=== PATIENT | male | born 1960 | race Caucasian/White ===

== ENCOUNTER 2017-10-27 03:14 | Inpatient (IN) | payer OTHER ==
[~2017-10-27] VITALS: Ht 180.3 cm; Wt 81.0 kg
[2017-10-27] VITALS (16 sets, daily range): BP systolic 113–214; BP diastolic 64–112; PULSE 63–140; RESP 18–48; TEMP 97.8–98.5; O2SAT 64–99
[~2017-10-27 03:14] MED LIST: LORTA5 PO
[2017-10-27] MEDS ORDERED: NITROGLYCERIN-D5W 50 MG/250 ML 250 ML ONE (03:19)
[2017-10-27] MEDS ORDERED: LABETALOL HCL 100 MG/20 ML VIAL IV PUSH ONE (03:30)
[2017-10-27] MEDS ORDERED: SODIUM CHLORIDE 0.9% FLUSH 10 ML FLUSH IVF PRN (03:30)
[2017-10-27] MEDS ORDERED: NITROGLYCERIN 0.4 MG SL 25 TABS/BTL SL ONE ×3 (03:30)
[2017-10-27] MEDS ORDERED: methylPREDNISolone SOD SUCC 125 MG/2 ML VIAL IV PUSH ONE (03:30)
[2017-10-27] MEDS ORDERED: MORPHINE SULFATE 2 MG/ML INJ IV PUSH ONE ×2 (03:30)
[2017-10-27] MEDS ORDERED: diphenhydrAMINE HCL 50 MG/ML VIAL IV PUSH ONE (03:30)
[2017-10-27] MEDS ORDERED: NITROGLYCERIN-D5W 50 MG/250 ML 250 ML IV ONE (03:30)
[2017-10-27] MEDS ORDERED: FUROSEMIDE 100 MG/10 ML VIAL IV PUSH ONE (03:30)
[2017-10-27 03:49] LABS: AUTOMATED NEUTROPHIL # 10.9 TH/MM3 (1.8-7.7); BASOPHIL # 0.1 TH/MM3 (0-0.2); BASOPHIL % 0.7 % (0.0-2.0); EOSINOPHIL # 0.2 TH/MM3 (0-0.4); EOSINOPHIL % 1.2 % (0.0-4.0); HEMATOCRIT 37.3 % (39.0-51.0); HEMOGLOBIN 12.4 GM/DL (13.0-17.0); LYMPH % 27.1 % (9.0-44.0); LYMPHOCYTE # 4.4 TH/MM3 (1.0-4.8); MEAN CELL VOLUME 85.3 FL (80.0-100.0); MEAN CORPUSCULAR HEMOGLOBIN 28.4 PG (27.0-34.0); MEAN CORPUSCULAR HGB CONC 33.3 % (32.0-36.0); MEAN PLATELET VOLUME 9.4 FL (7.0-11.0); MONO % 3.9 % (0.0-8.0); MONOCYTE # 0.6 TH/MM3 (0-0.9); NEUT % 67.1 % (16.0-70.0); PLATELET COUNT 321 TH/MM3 (150-450); RED BLOOD COUNT 4.38 MIL/MM3 (4.50-5.90); RED CELL DISTRIBUTION WIDTH 15.5 % (11.6-17.2); WHITE BLOOD COUNT 16.2 TH/MM3 (4.0-11.0)
[2017-10-27] MEDS ORDERED: LISI10TA3 PO (03:56)
[2017-10-27] MEDS ORDERED: CORE25TA PO (03:56)
[2017-10-27] MEDS ORDERED: IPRAAER INH (03:56)
[2017-10-27] MEDS ORDERED: ETHA5TAB PO (03:56)
--- NOTE | 2017-10-27 03:56 | RADRPT ---
EXAM DATE/TIME: 10/27/2017 03:30 [place] COMPARISON: No previous studies available for comparison. INDICATIONS : Shortness of breath MEDICAL HISTORY : None. SURGICAL HISTORY : None. ENCOUNTER: Initial ACUITY: 1 day PAIN SCORE: 8/10 LOCATION: Bilateral chest FINDINGS: Single AP view of the chest. Moderate severity bilateral mixed interstitial and hazy pulmonary opacit y. No evidence of pleural effusion or pneumothorax. Cardiomediastinal silhouette within normal limits . CONCLUSION: Moderate severity bilateral pulmonary opacity with perihilar predominance. Pulmonary edema is most li rosario etiology. Paolo Billy MD on October 27, 2017 at 3:54 Board Certified Radiologist. This report was verified electronically.
[2017-10-27 03:57] LABS: ALBUMIN 2.6 GM/DL (3.4-5.0); ALT (GPT) 30 U/L (12-78); AST (GOT) 30 U/L (15-37); BICARBONATE 19.4 MEQ/L (21.0-32.0); BLOOD UREA NITROGEN 37 MG/DL (7-18); CALCIUM 7.9 MG/DL (8.5-10.1); CHLORIDE 107 MEQ/L (98-107); GLOMERULAR FILTRATION RATE 48 ML/MIN (>89); GLUCOSE,RANDOM 209 MG/DL (74-106); SODIUM (NA) 139 MEQ/L (136-145)
[2017-10-27 04:01] LABS: ALKALINE PHOSPHATASE 73 U/L (45-117); TOTAL BILIRUBIN ADULT 0.5 MG/DL (0.2-1.0); TOTAL PROTEIN 6.5 GM/DL (6.4-8.2); TROPONIN I 0.05 NG/ML (0.02-0.05)
[2017-10-27 04:02] LABS: INTERNATIONAL NORMALIZED RATIO 1.1 RATIO; PROTHROMBIN TIME - PATIENT 10.7 SEC (9.8-11.6)
--- NOTE | 2017-10-27 04:46 | PD ---
HPI . Acute respiratory distress Chief Complaint: Respiratory Distress Time Seen by Provider: 03:17 Travel History International Travel<30 days: No Contact w/Intl Traveler<30days: No Traveled to known affect area: No History of Present Illness HPI 57-year-old male complains of having acute shortness of breath at home. administered Lasix with no apparent effect. Patient has a history of acute pulmonary edema/CHF. Patient denies chest pain or fever. Patient is limited historian secondary to acute respiratory extremis. EMS transport with CPAP [facility] Past Medical History Narrative Medical Past medical history reviewed Congestive Heart Failure: Yes Diminished Hearing: No Kidney Stones: Yes Tetanus Vaccination: Unknown Past Surgical History Abdominal Surgery: Yes (ventral hernia repair) Tonsillectomy: Yes Other Surgery: Yes (surgery on penis as a child) Social History Alcohol Use: No Tobacco Use: No (denies) Substance Use: Yes (marijuana.) Allergies-Medications (Allergen,Severity, Reaction): Coded Allergies: No Known Allergies (Verified Adverse Reaction, Unknown, 10/27/17) Reported Meds & Prescriptions Reported Meds & Active Scripts Active Reported Combivent Respimat Inh (Ipratropium-Albuterol Inh) 20-100 Senior Care/Act Aero 1 Puff INH QID Ethacrynic Acid 25 Mg Tab 25 Mg PO DAILY Lisinopril 10 Mg Tab 10 Mg PO DAILY Coreg (Carvedilol) 25 Mg Tab 25 Mg PO BID Narrative Medication Allergies and medications reviewed Review of Systems Except as stated in HPI: all other systems reviewed are Neg General / Constitutional: No: Fever Eyes: No: Visual changes HENT: No: Headaches Cardiovascular: No: Chest Pain or Discomfort Respiratory: Positive: Shortness of Breath Gastrointestinal: No: Abdominal Pain Genitourinary: No: Dysuria Musculoskeletal: No: Pain Skin: No Rash Neurologic: No: Weakness Psychiatric: No: Depression Endocrine: No: Polydipsia Hematologic/Lymphatic: No: Easy Bruising Physical Exam Narrative GENERAL: Awake and alert in severe extremities, acute respiratory distress SKIN: Pale but dry, no cyanosis no diaphoresis HEAD: Atraumatic. Normocephalic. EYES: Pupils equal and round. No scleral icterus. No injection or drainage. ENT: No nasal bleeding or discharge. Mucous membranes pink and moist. NECK: Trachea midline. No stridor CARDIOVASCULAR: Tachycardia regular at 150 bpm RESPIRATORY: Acute respiratory extremis, rales bilateral, JVD positive GASTROINTESTINAL: Abdomen soft, non-tender, nondistended. Hepatic and splenic margins not palpable. MUSCULOSKELETAL: Extremities without clubbing, cyanosis, or edema. No obvious deformities. NEUROLOGICAL: Awake and alert. No obvious cranial nerve deficits. Motor grossly within normal limits. Five out of 5 muscle strength in the arms and legs. Normal speech. PSYCHIATRIC: Appropriate mood and affect; insight and judgment normal. Data Data Last Documented VS Vital Signs Date Time Temp Pulse Resp B/P (MAP) Pulse Ox O2 Delivery O2 Flow Rate FiO2 10/27/17 04:11 116 139/84 10/27/17 03:25 60 96 BiPAP 100 Orders Orders Electrocardiogram (10/27/17 03:17) B-Type Natriuretic Peptide (10/27/17 03:17) Ckmb (Isoenzyme) Profile (10/27/17 03:17) Complete Blood Count With Diff (10/27/17 03:17) Comprehensive Metabolic Panel (10/27/17 03:17) D-Dimer (10/27/17 03:17) Magnesium (Mg) (10/27/17 03:17) Prothrombin Time / Inr (Pt) (10/27/17 03:17) Act Partial Throm Time (Ptt) (10/27/17 03:17) Troponin I (10/27/17 03:17) Chest, Single Ap (10/27/17 03:17) Ecg Monitoring (10/27/17 03:17) Bilateral Bp Monitoring (10/27/17 03:17) Iv Access Insert/Monitor (10/27/17 03:17) Oximetry (10/27/17 03:17) Oxygen Administration (10/27/17 03:17) Sodium Chloride 0.9% Flush (Ns Flush) (10/27/17 03:30) Nitroglycerin-D5w 50 Mg/250 Ml (Nitrogly (10/27/17 03:19) Nitroglycerin Sl (Nitrostat Sl) (10/27/17 03:30) Nitroglycerin Sl (Nitrostat Sl) (10/27/17 03:30) Nitroglycerin Sl (Nitrostat Sl) (10/27/17 03:30) Nitroglycerin-D5w 50 Mg/250 Ml (Nitrogly (10/27/17 03:30) Morphine Inj (Morphine Inj) (10/27/17 03:30) Morphine Inj (Morphine Inj) (10/27/17 03:30) Diphenhydramine Inj (Benadryl Inj) (10/27/17 03:30) Furosemide Inj (Lasix Inj) (10/27/17 03:30) Methylprednisolone So Succ Inj (Solumedr (10/27/17 03:30) Labetalol Inj (Trandate Inj) (10/27/17 03:30) Labs Laboratory Tests Test 10/27/17 03:25 White Blood Count 16.2 TH/MM3 Red Blood Count 4.38 MIL/MM3 Hemoglobin 12.4 GM/DL Hematocrit 37.3 % Mean Corpuscular Volume 85.3 FL Mean Corpuscular Hemoglobin 28.4 PG Mean Corpuscular Hemoglobin Concent 33.3 % Red Cell Distribution Width 15.5 % Platelet Count 321 TH/MM3 Mean Platelet Volume 9.4 FL Neutrophils (%) (Auto) 67.1 % Lymphocytes (%) (Auto) 27.1 % Monocytes (%) (Auto) 3.9 % Eosinophils (%) (Auto) 1.2 % Basophils (%) (Auto) 0.7 % Neutrophils # (Auto) 10.9 TH/MM3 Lymphocytes # (Auto) 4.4 TH/MM3 Monocytes # (Auto) 0.6 TH/MM3 Eosinophils # (Auto) 0.2 TH/MM3 Basophils # (Auto) 0.1 TH/MM3 CBC Comment AUTO DIFF Differential Comment AUTO DIFF CONFIRMED Prothrombin Time 10.7 SEC Prothromb Time International Ratio 1.1 RATIO Activated Partial Thromboplast Time 24.3 SEC Blood Urea Nitrogen 37 MG/DL Creatinine 1.50 MG/DL Random Glucose 209 MG/DL Total Protein 6.5 GM/DL Albumin 2.6 GM/DL Calcium Level 7.9 MG/DL Magnesium Level 2.0 MG/DL Alkaline Phosphatase 73 U/L Aspartate Amino Transf (AST/SGOT) 30 U/L Alanine Aminotransferase (ALT/SGPT) 30 U/L Total Bilirubin 0.5 MG/DL Sodium Level 139 MEQ/L Potassium Level 3.8 MEQ/L Chloride Level 107 MEQ/L Carbon Dioxide Level 19.4 MEQ/L Anion Gap 13 MEQ/L Estimat Glomerular Filtration Rate 48 ML/MIN Total Creatine Kinase 56 U/L Troponin I 0.05 NG/ML MDM Medical Decision Making Medical Screen Exam Complete: Yes Emergency Medical Condition: Yes Medical Record Reviewed: Yes Differential Diagnosis Acute pulmonary edema/CHF Narrative Course Chest x-ray acute pulmonary edema EKG sinus tachycardia 151 bpm with slightly peaked T waves in V3 V4 Patient had CPAP administered, as well as sublingual 3 followed by IV nitroglycerin, pretreatment with Benadryl and cimetidine followed by Lasix 80 mg IV push secondary to history of diffuse severe urticaria after Lasix IV Labetalol 10 mg IV push, morphine total 4 mg IV push with significant improvement in patient's symptoms. 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 Brooks maintenance shop technician, accepted for ICU admission Diagnosis Primary Impression: Acute pulmonary edema Admitting Information Admitting Physician Requests: Admit Lars Alexander MD Oct 27, 2017 04:46
[2017-10-27 05:05] LABS: D-DIMER 4.89 MG/L FEU (0.00-0.50)
[2017-10-27] MEDS ORDERED: LACTULOSE SYRUP 20 GM/30 ML CUP PO PRN (05:15)
[2017-10-27] MEDS ORDERED: ZOLPIDEM TARTRATE 5 MG TAB PO PRN (05:15)
[2017-10-27] MEDS ORDERED: MISCELLANEOUS NURSING INFORMATION XX SCH (05:15)
[2017-10-27] MEDS ORDERED: MORPHINE SULFATE 2 MG/ML INJ IV PUSH PRN (05:15)
[2017-10-27] MEDS ORDERED: SENNOSIDES 8.6 MG TAB PO PRN (05:15)
[2017-10-27] MEDS ORDERED: MAGNESIUM HYDROXIDE SUSP 30 ML CUP PO PRN (05:15)
[2017-10-27] MEDS ORDERED: LORazepam 2 MG/ML VIAL IV PUSH PRN (05:15)
[2017-10-27] MEDS ORDERED: ONDANSETRON HCL 4 MG/2 ML VIAL IV PUSH PRN (05:15)
[2017-10-27] MEDS ORDERED: BISACODYL 10 MG SUPP RECTAL PRN (05:15)
[2017-10-27] MEDS ORDERED: RESP: ALBUTEROL 2.5 MG/IPRATROPIUM 0.5 MG NEB (PRN) INH (05:15)
[2017-10-27] MEDS ORDERED: CHLORHEXIDINE GLUCONATE 2 % 1 PACK (2 CLOTHS) TOP PRN (05:15)
--- NOTE | 2017-10-27 05:16 | HHI.HP ---
HPI Service Critical Care Medicine Primary Care Physician No Primary Care Physician Admission Diagnosis Acte Pulmonary Edema Diagnosis: Travel History International Travel<30 Days: No Contact w/Intl Traveler <30 Da: No Traveled to Known Affected Are: No History of Present Illness 57-year-old male admitted with complains of having acute shortness of breath at home. Patient's administered Lasix without any significant improvement. Patient has a history of acute pulmonary edema/CHF. Patient denies chest pain or fever. Patient is limited historian secondary to acute respiratory extremis. He was transported to the hospital via EMS using the CPAP oxygenation. Review of Systems ROS Unobtainable patient in respiratory distress Past Family Social History Allergies: Coded Allergies: No Known Allergies (Verified Allergy, Unknown, 10/27/17) Past Medical History Congestive heart failure Past Surgical History Hand surgery Tonsillectomy Hernia repair Reported Medications Reported Meds & Active Scripts Active Reported Combivent Respimat Inh (Ipratropium-Albuterol Inh) 20-100 Snf/Act Aero 1 Puff INH QID Ethacrynic Acid 25 Mg Tab 25 Mg PO DAILY Lisinopril 10 Mg Tab 10 Mg PO DAILY Coreg (Carvedilol) 25 Mg Tab 25 Mg PO BID Active Ordered Medications Current Medications Medications (Trade) Dose Ordered Sig/Jessica Route PRN Reason Start Time Stop Time Status Last Admin Dose Admin Sodium Chloride (NS Flush) 2 ml UNSCH PRN IVF FLUSH AFTER USING IV ACCESS 10/27/17 03:30 Carvedilol (Coreg) 25 mg BID PO 10/27/17 09:00 Ethacrynic Acid (Edecrin) 25 mg DAILY PO 10/27/17 09:00 UNV Lisinopril (Prinivil) 10 mg DAILY PO 10/27/17 09:00 UNV Non-Formulary Medication 1 puff QID INH 10/27/17 09:00 UNV Family History No family history significant for coronary artery disease Social History Alcohol Use: No Tobacco Use: No (denies) Substance Use: Smokes occasional medical marijuana Physical Exam Vital Signs Vital Signs Date Time Temp Pulse Resp B/P (MAP) Pulse Ox O2 Delivery O2 Flow Rate FiO2 10/27/17 04:53 112 109/72 10/27/17 04:42 99 75 10/27/17 04:11 116 139/84 10/27/17 04:01 117 148/88 10/27/17 03:37 140 214/112 10/27/17 03:25 60 96 BiPAP 100 10/27/17 03:23 86 BiPAP 100 10/27/17 03:19 140 48 214/112 (146) 64 10/27/17 03:15 92 100 10/27/17 03:12 70 Physical Exam GENERAL: Awake and alert in severe extremities, acute respiratory distress SKIN: Pale but dry, no cyanosis no diaphoresis HEAD: Atraumatic. Normocephalic. EYES: Pupils equal and round. No scleral icterus. No injection or drainage. ENT: No nasal bleeding or discharge. Mucous membranes pink and moist. NECK: Trachea midline. No stridor CARDIOVASCULAR: Tachycardia regular at 150 bpm RESPIRATORY: Acute respiratory extremis, rales bilateral, JVD positive GASTROINTESTINAL: Abdomen soft, non-tender, nondistended. Hepatic and splenic margins not palpable. MUSCULOSKELETAL: Extremities without clubbing, cyanosis, or edema. No obvious deformities. NEUROLOGICAL: Awake and alert. No obvious cranial nerve deficits. Motor grossly within normal limits. Five out of 5 muscle strength in the arms and legs. Normal speech. Laboratory Laboratory Tests Test 10/27/17 03:25 White Blood Count 16.2 Red Blood Count 4.38 Hemoglobin 12.4 Hematocrit 37.3 Mean Corpuscular Volume 85.3 Mean Corpuscular Hemoglobin 28.4 Mean Corpuscular Hemoglobin Concent 33.3 Red Cell Distribution Width 15.5 Platelet Count 321 Mean Platelet Volume 9.4 Neutrophils (%) (Auto) 67.1 Lymphocytes (%) (Auto) 27.1 Monocytes (%) (Auto) 3.9 Eosinophils (%) (Auto) 1.2 Basophils (%) (Auto) 0.7 Neutrophils # (Auto) 10.9 Lymphocytes # (Auto) 4.4 Monocytes # (Auto) 0.6 Eosinophils # (Auto) 0.2 Basophils # (Auto) 0.1 CBC Comment AUTO DIFF Differential Comment AUTO DIFF CONFIRMED Prothrombin Time 10.7 Prothromb Time International Ratio 1.1 Activated Partial Thromboplast Time 24.3 D-Dimer Quantitative (PE/DVT) 4.89 Blood Urea Nitrogen 37 Creatinine 1.50 Random Glucose 209 Total Protein 6.5 Albumin 2.6 Calcium Level 7.9 Magnesium Level 2.0 Alkaline Phosphatase 73 Aspartate Amino Transf (AST/SGOT) 30 Alanine Aminotransferase (ALT/SGPT) 30 Total Bilirubin 0.5 Sodium Level 139 Potassium Level 3.8 Chloride Level 107 Carbon Dioxide Level 19.4 Anion Gap 13 Estimat Glomerular Filtration Rate 48 Total Creatine Kinase 56 Troponin I 0.05 B-Type Natriuretic Peptide 830 Result Diagram: 10/27/17 0325 10/27/17 0325 Septic Shock Reassessment Septic shock perfusion: reassessment completed Caprini VTE Risk Assessment Caprini VTE Risk Assessment: Mod/High Risk (score >= 2) Caprini Risk Assessment Model Point Value = 1 Point Value = 2 Point Value = 3 Point Value = 5 Age 41-60 Minor surgery BMI > 25 kg/m2 Swollen legs Varicose veins or History of unexplained or recurrent spontaneous Oral contraceptives or hormone replacement Sepsis (< 1 month) Serious lung disease, including pneumonia (< 1 month) Abnormal pulmonary function Acute myocardial infarction Congestive heart failure (< 1 month) History of inflammatory bowel disease Medical patient at bed rest Age 61-74 Arthroscopic surgery Major open surgery (> 45 min) Laparoscopic surgery (> 45 min) Malignancy Confined to bed (> 72 hours) Immobilizing plaster cast Central venous access Age >= 75 History of VTE Family history of VTE Factor V Leiden Prothrombin [id number] Lupus anticoagulant Anticardiolipin antibodies Elevated serum homocysteine Heparin-induced thrombocytopenia Other congenital or acquired thrombophilia Stroke (< 1 month) Elective arthroplasty Hip, pelvis, or leg fracture Acute spinal cord injury (< 1 month) Prophylaxis Regimen Total Risk Factor Score Risk Level Prophylaxis Regimen 0-1 Low Early ambulation 2 Moderate Order ONE of the following: *Sequential Compression Device (SCD) *Heparin 5000 units SQ BID 3-4 Higher Order ONE of the following medications: *Heparin 5000 units SQ TID *Enoxaparin/Lovenox 40 mg SQ daily (WT < 150 kg, CrCl > 30 mL/min) *Enoxaparin/Lovenox 30 mg SQ daily (WT < 150 kg, CrCl > 10-29 mL/min) *Enoxaparin/Lovenox 30 mg SQ BID (WT < 150 kg, CrCl > 30 mL/min) AND/OR *Sequential Compression Device (SCD) 5 or more Highest Order ONE of the following medications: *Heparin 5000 units SQ TID (Preferred with Epidurals) *Enoxaparin/Lovenox 40 mg SQ daily (WT < 150 kg, CrCl > 30 mL/min) *Enoxaparin/Lovenox 30 mg SQ daily (WT < 150 kg, CrCl > 10-29 mL/min) *Enoxaparin/Lovenox 30 mg SQ BID (WT < 150 kg, CrCl > 30 mL/min) AND *Sequential Compression Device (SCD) Assessment and Plan Assessment and Plan Respiratory Failure - Pulmonary edema - 2-D echo - Series of troponin - Improving after diuretics morphine and blood pressure control - Cardiology consultation Hypertension - Carvedilol - Lisinopril - When necessary hydralazine Acute renal failure - Unknown baseline - Monitor urine output - Monitor creatinine and electrolytes DVT GI prophylaxis - Teds SCDs - Subcutaneous heparin - Pepcid Critical Care: The total critical care time was 35 minutes. Time to perform other separately billable procedures was not included in the critical care time. Sylvester Brooks MD Oct 27, 2017 05:16
[2017-10-27] MEDS: HEPARIN SODIUM - SQ 10,000 UNITS/ML VIAL SQ SCH ×3 (06:30→22:10)
[2017-10-27] MEDS: FUROSEMIDE 20 MG/2 ML VIAL IV PUSH SCH ×4 (06:32→23:34)
[2017-10-27] MEDS: PIPERACIL-TAZO 4.5 GM PREMIX 100 ML IV SCH ×4 (06:34→23:34)
[2017-10-27] MEDS: ACETAMINOPHEN 325 MG TAB PO PRN (07:30)
[2017-10-27] MEDS: CARVEDILOL 12.5 MG TAB PO SCH ×2 (08:10→22:10)
[2017-10-27] MEDS: LISINOPRIL 10 MG TAB PO SCH (08:10)
[2017-10-27] MEDS: FAMOTIDINE 20 MG/2 ML VIAL IV PUSH SCH ×2 (08:11→22:10)
[2017-10-27] MEDS: TIOTROPIUM BROMIDE 18 MCG INH INH SCH (08:11)
[2017-10-27] MEDS: ALBUTEROL SULFATE 90 MCG/ACT HFA 8 GM INHALER INH SCH ×4 (08:11→22:09)
[2017-10-27] MEDS: AZITHROMYCIN INJ 500 MG in SODIUM CHLOR 0.9% 250 ML INJ 250 ML IV SCH (08:11)
[2017-10-27] MEDS: SODIUM CHLORIDE 0.9% FLUSH 10 ML FLUSH IV FLUSH SCH ×2 (08:11→22:09)
[2017-10-27] MEDS: ETHACRYNIC ACID 25 MG TAB PO SCH (08:12)
[2017-10-27] MEDS: DOCUSATE SODIUM 50 MG/SENNA 8.6 MG TAB PO SCH ×2 (08:12→21:00)
[2017-10-27] MEDS ORDERED: NON-FORMULARY DRUG (Ipratropium-Albuterol Inh (Combivent Respimat Inh) 1 PUFF) INH SCH (09:00)
[2017-10-27] MEDS ORDERED: ASPIRIN EC 81 MG TABEC PO ONE (12:15)
--- NOTE | 2017-10-27 12:51 | EKG ---
Date Performed: 10/27/2017 Time Performed: 03:18:46 PTAGE: 57 years EKG: SINUS TACHYCARDIA, POSSIBLE ATRIAL FLUTTER MINIMAL VOLTAGE CRITERIA FOR LVH, CONSIDER KAITLIN L VARIANT NONSPECIFIC T-WAVE ABNORMALITY ABNORMAL RHYTHM ECG NO PREVIOUS TRACING DOCTOR: Dion Oleary Interpretating Date/Time 10/27/2017 12:50:37
--- NOTE | 2017-10-27 12:52 | EKG ---
Date Performed: 10/27/2017 Time Performed: 10:17:47 PTAGE: 57 years EKG: Sinus rhythm POSSIBLE LEFT ATRIAL ENLARGEMENT POSSIBLE LEFT VENTRICULAR HYPERTROPHY ABNORMAL ECG PREVIOUS TRACING : 10/27/2017 03.18 Since previous tracing, heart rate has changed from [address]-T changes have improved. DOCTOR: Dion Oleary Interpretating Date/Time 10/27/2017 12:51:29
--- NOTE | 2017-10-27 12:58 | MB ---
cc: TOI MORRIS M.D. DATE OF CONSULTATION: 10/27/2017. REASON FOR CONSULTATION: HISTORY OF PRESENT ILLNESS: Davi is a very pleasant 57-year-old gentleman who is a former smoker who has had several admissions and evaluations at [facility] for "pneumonia". He has had several episodes prior to admission of severe coughing spells with associated at least moderate to severe chest tightness and shortness of breath. Currently he is resting with nasal cannula in place in no acute distress. Denies any fever, chills, GI or bleeding, paroxysmal nocturnal dyspnea, orthopnea, syncope or dizziness. PAST MEDICAL HISTORY: His past medical history includes: 1. Congestive heart failure. 2. Nephrolithiasis. 3. Ventral hernia repair. 4. Tonsillectomy. SOCIAL HISTORY: Former smoker. Currently denies tobacco use. Denies alcohol use. Smokes marijuana recreationally. ALLERGIES: NONE. MEDICATIONS PRIOR TO ADMISSION: 1. Combivent. 2. Ethacrynic acid. 3. Lisinopril 10 daily. 4. Coreg 25 twice a day. MEDICATIONS IN THE HOSPITAL: 1. Carvedilol 25 twice a day. 2. Ethacrynic acid 25 milligrams daily. 3. Lisinopril 10 milligrams daily. 4. Famotidine 20 milligrams IV q. 12 hours. 5. Spiriva 18 micrograms inhaler daily. 6. Albuterol. 7. Azithromycin. 8. Piperacillin. 9. Heparin 5000 subcutaneous q 8 hours. 10. Lasix 20 milligrams IV q. 6 hours. PHYSICAL EXAMINATION: VITAL SIGNS: Blood pressure 150/86, ranging between 110-150 systolic. Saturations 95% on four liters nasal cannula. Pulse 96. Respiratory rate 20. Current blood pressure 150/86. GENERAL: He is alert and oriented times three and in no acute distress. NECK: The neck is supple. No jugular venous distention. No bruits. CARDIOVASCULAR EXAM: S1 and S2. No murmurs, rubs or gallops. LUNGS: Notable for decreased air movement bilaterally in the bases. ABDOMEN: The abdomen is soft, nontender and nondistended with positive bowel sounds. EXTREMITIES: No lower extremity edema. IMAGING STUDIES: Chest x-ray: Moderate severity bilateral pulmonary opacity with perihilar predominance. Pulmonary edema is most likely etiology. LABORATORY DATA: White count 16.2, hemoglobin 12.4, hematocrit 37.3, platelet count is 321,000. Sodium 139, potassium 3.8, chloride 107, bicarbonate 19.4, BUN 37, creatinine 1.50. Liver function tests normal. Brain natriuretic peptide is 830. Troponin is 0.05. Albumin 2.6. INR 1.1. EKGS: EKG shows sinus tachycardia at 145 beats per minute, no ischemic changes Repeat EKG shows normal sinus rhythm at 82 beats per minute. There is what appears to be peaked T waves in leads V3 and V4, amplitude of 12 to 14 mm slightly asymmetric. FINAL DIAGNOSIS 1. Decompensated congestive heart failure. 2. Hypoxia. 3. Sinus tachycardia. 4. Hyperglycemia. 5. Hypoalbuminemia. 6. Hypocalcemia. 7. Elevated white count. 8. Anemia. DISCUSSION: At this point in time, the patient presents with multiple episodes of hypoxia "pneumonia" which may actually be congestive heart failure exacerbations. Clearly on this admission he has a congestive heart failure exacerbation. He has not had an ischemic workup. Therefore I think right and left heart catheterization are medically necessary due to recurrent congestive heart failure exacerbations, multiple cardiac risk factors. I have explained this to the patient. I have explained to him that the risks of heart catheterization and percutaneous coronary intervention has a 5% to 10% chance of , stroke, heart attack, bleeding, infection, need for bypass surgery, dialysis, blood transfusions, anaphylaxis and arrhythmia. He understands. Will also add aspirin 81 milligrams daily. Recommend abstinence from marijuana inhalation due to potential atherogenic effects of inhaled marijuana. MD PRAVIN Gerard/JCAshok 11:49 AM /12:28 PM
--- NOTE | 2017-10-27 17:14 | ECHRPT ---
Indication: HEART FAILURE CONCLUSIONS The left ventricular systolic function is low normal with an estimated ejection fraction in the rang e of 50- 55%. Normal left ventricular size. Wall thickness is normal. No regional wall motion abnormalities are present. Trace mitral valve regurgitation. There is trace tricuspid valve regurgitation. The estimated pulmonary arterial pressure is 25.1 mmHg. Trivial pulmonary valve regurgitation. BP: 150 / 86 HR: 107 Rhythm: Sinus MEASUREMENTS (Male / Female) Normal Values Technical Quality:Good 2D ECHO LV Diastolic Diameter PLAX 5.2 cm 4.2 - 5.9 / 3.9 - 5.3 cm LV Systolic Diameter PLAX 4.1 cm IVS Diastolic Thickness 1.1 cm 0.6 - 1.0 / 0.6 - 0.9 cm LVPW Diastolic Thickness 1.0 cm 0.6 - 1.0 / 0.6 - 0.9 cm LV Relative Wall Thickness 0.4 RV Internal Dim ED PLAX 2.6 cm LVOT Diameter 2.0 cm LA Systolic Diameter LX 3.7 cm 3.0 - 4.0 / 2.7 - 3.8 cm LV Ejection Fraction MOD 4C 54.1 % LV Cardiac Index MOD 4C 3109.6 cm/minm LV Ejection Fraction 4C AL 56.0 % LV Cardiac Index 4C AL 3328.5 cm/minm M-MODE Aortic Root Diameter MM 3.4 cm LA Systolic Diameter MM 3.5 cm LA Ao Ratio MM 1.0 AV Cusp Separation MM 1.9 cm DOPPLER AV Peak Velocity 141.0 cm/s AV Peak Gradient 8.0 mmHg LVOT Peak Velocity 103.0 cm/s LVOT Peak Gradient 4.2 mmHg AV Area Cont Eq pk 2.3 cm MV Area PHT 6.3 cm Mitral E Point Velocity 79.5 cm/s Mitral A Point Velocity 101.0 cm/s Mitral E to A Ratio 0.8 TR Peak Velocity 194.0 cm/s TR Peak Gradient 15.1 mmHg Right Atrial Pressure 10.0 mmHg Pulmonary Artery Systolic Pressu 25.1 mmHg Right Ventricular Systolic Press 25.1 mmHg PV Peak Velocity 210.0 cm/s PV Peak Gradient 17.6 mmHg FINDINGS LEFT VENTRICLE The left ventricular systolic function is low normal with an estimated ejection fraction in the rang e of 50- 55%. Normal left ventricular size. Wall thickness is normal. No regional wall motion abnormalities are present. RIGHT VENTRICLE Normal right ventricular size and systolic function. LEFT ATRIUM The left atrial size is normal. RIGHT ATRIUM The right atrial size is normal. ATRIAL SEPTUM Normal atrial septal thickness without atrial level shunting by limited color doppler interrogation. AORTA The aortic root and proximal ascending aorta are normal in size on limited imaging. MITRAL VALVE Structurally normal mitral valve. Trace mitral valve regurgitation. AORTIC VALVE Trileaflet aortic valve. No aortic valve stenosis or regurgitation. TRICUSPID VALVE Structurally normal tricuspid valve. There is trace tricuspid valve regurgitation. The estimated pulmonary arterial pressure is 25.1 mmHg. PULMONARY VALVE Trivial pulmonary valve regurgitation. VESSELS The inferior vena cava is normal in size. PERICARDIUM No pericardial effusion. Landen Carter MD (Electronically Signed) Final Date:27 October 2017 17:13
[2017-10-27] MEDS ORDERED: POTA10CA PO (17:15)
[2017-10-27] MEDS: SODIUM CHLORIDE 0.9% FLUSH 10 ML FLUSH IV FLUSH PRN (23:34)
[2017-10-28] VITALS (14 sets, daily range): BP systolic 130–176; BP diastolic 65–99; PULSE 65–104; RESP 14–24; TEMP 97.6–98.1; O2SAT 95–98
[2017-10-28] MEDS: CHLORHEXIDINE GLUCONATE 2 % 1 PACK (2 CLOTHS) TOP SCH (02:41)
[2017-10-28] MEDS: HEPARIN SODIUM - SQ 10,000 UNITS/ML VIAL SQ SCH ×2 (03:43→12:44)
[2017-10-28] MEDS: PIPERACIL-TAZO 4.5 GM PREMIX 100 ML IV SCH ×3 (06:23→18:03)
[2017-10-28] MEDS: SODIUM CHLORIDE 0.9% FLUSH 10 ML FLUSH IV FLUSH PRN ×2 (06:24→09:11)
--- NOTE | 2017-10-28 08:52 | HHI.CCPN ---
Subjective Remarks/Hospital Course History of Present Illness 57-year-old male admitted with complains of having acute shortness of breath at home. Patient's administered Lasix without any significant improvement. Patient has a history of acute pulmonary edema/CHF. Patient denies chest pain or fever. Patient is limited historian secondary to acute respiratory extremis. He was transported to the hospital via EMS using the CPAP oxygenation. Subjective: 10/28: Afebrile. No acute events overnight. Patient diuresed S/P Lasix over the last 24 hours. Patient reports coughing decreased. Patient continues on aspirin and carvedilol. Plan for left heart catheterization today. AM Labs pending. O2 requirements now decreased to nasal cannula 2 L/m O2 saturation 97% . Objective Vital Signs Date Time Temp Pulse Resp B/P (MAP) Pulse Ox O2 Delivery O2 Flow Rate FiO2 10/28/17 06:00 73 10/28/17 04:00 97.8 19 130/65 (86) 97 10/27/17 21:22 Nasal Cannula 2.00 10/27/17 05:46 60 Intake and Output 10/28/17 10/28/17 10/29/17 08:00 16:00 00:00 Intake Total 440 ml Output Total 650 ml Balance -210 ml Result Diagram: 10/27/17 0325 10/27/17 0325 Other Results Microbiology Date/Time Source Procedure Growth Status 10/27/17 07:10 Urine Random Urine Legionella Antigen - Final PRESUMPTIVE NEGATIVE FOR LEGIONELLA P... Complete 10/27/17 07:10 Urine Random Urine Streptococcus pneumoniae Antigen (M - Final PRESUMPTIVE NEGATIVE FOR STREPTOCOCCU... Complete Imaging Last Impressions Chest X-Ray 10/27/17316 Signed Impressions: Service Date/Time: Friday, October 27, 2017 03:30 - CONCLUSION: Moderate severity bilateral pulmonary opacity with perihilar predominance. Pulmonary edema is most likely etiology. Paolo Billy MD Objective Remarks GENERAL: Well-developed well-nourished gentleman awake and alert., In no apparent distress SKIN: Pale but dry, no cyanosis no diaphoresis HEAD: Atraumatic. Normocephalic. EYES: Pupils equal and round. No scleral icterus. No injection or drainage. ENT: No nasal bleeding or discharge. Mucous membranes pink and moist. NECK: Trachea midline. No stridor CARDIOVASCULAR: Regular rate and regular rhythm. Telemetry normal sinus rhythm HR 85 RESPIRATORY: Bilateral chest excursion .Clear to auscultation bilaterally .No JVD. GASTROINTESTINAL: Abdomen soft, non-tender, nondistended. Hepatic and splenic margins not palpable. MUSCULOSKELETAL: Extremities without clubbing, cyanosis, or edema. No obvious deformities. NEUROLOGICAL: Awake and alert. No obvious cranial nerve deficits. Motor grossly within normal limits. Five out of 5 muscle strength in the arms and legs. Normal speech. A/P Assessment and Plan Respiratory Failure CHF exacerbation Pulmonary edema - 2-D echo-EF 50-55 percent, trace TR, trace MR, PAP 25. No RWMA - Series of troponin-0.05->0.30-> 0.12. BNP 830 - Improving after diuretics morphine and blood pressure control - Cardiology following-Dr. Garcia-plan for left heart catheterization 10/28/17 -ASA 81 mg added to medication regimen per cardiology Hypertension - Carvedilol - Lisinopril - When necessary hydralazine Acute renal failure - Unknown baseline - Monitor urine output - Monitor creatinine and electrolytes DVT GI prophylaxis - Teds SCDs - Subcutaneous heparin - Pepcid Level III follow-up Physician Luz Estrada MD Oct 28, 2017 08:52
[2017-10-28 08:56] LABS: AUTOMATED NEUTROPHIL # 11.8 TH/MM3 (1.8-7.7); BASOPHIL % 0.2 % (0.0-2.0); HEMATOCRIT 30.9 % (39.0-51.0); HEMOGLOBIN 10.4 GM/DL (13.0-17.0); LYMPH % 10.7 % (9.0-44.0); LYMPHOCYTE # 1.5 TH/MM3 (1.0-4.8); MEAN CELL VOLUME 82.8 FL (80.0-100.0); MEAN CORPUSCULAR HEMOGLOBIN 27.8 PG (27.0-34.0); MEAN CORPUSCULAR HGB CONC 33.6 % (32.0-36.0); MEAN PLATELET VOLUME 9.3 FL (7.0-11.0); MONO % 5.2 % (0.0-8.0); MONOCYTE # 0.7 TH/MM3 (0-0.9); NEUT % 83.9 % (16.0-70.0); PLATELET COUNT 229 TH/MM3 (150-450); RED BLOOD COUNT 3.73 MIL/MM3 (4.50-5.90); RED CELL DISTRIBUTION WIDTH 14.8 % (11.6-17.2)
[2017-10-28] MEDS: DOCUSATE SODIUM 50 MG/SENNA 8.6 MG TAB PO SCH ×2 (09:00→20:47)
[2017-10-28 09:01] LABS: INTERNATIONAL NORMALIZED RATIO 1.1 RATIO; PROTHROMBIN TIME - PATIENT 10.7 SEC (9.8-11.6)
[2017-10-28] MEDS: TIOTROPIUM BROMIDE 18 MCG INH INH SCH (09:09)
[2017-10-28] MEDS: ALBUTEROL SULFATE 90 MCG/ACT HFA 8 GM INHALER INH SCH ×4 (09:09→21:00)
[2017-10-28] MEDS: AZITHROMYCIN INJ 500 MG in SODIUM CHLOR 0.9% 250 ML INJ 250 ML IV SCH (09:09)
[2017-10-28] MEDS: LISINOPRIL 10 MG TAB PO SCH (09:10)
[2017-10-28] MEDS: ASPIRIN EC 81 MG TABEC PO SCH (09:10)
[2017-10-28] MEDS: CARVEDILOL 12.5 MG TAB PO SCH ×2 (09:10→20:46)
[2017-10-28] MEDS: ETHACRYNIC ACID 25 MG TAB PO SCH (09:10)
[2017-10-28] MEDS: FAMOTIDINE 20 MG/2 ML VIAL IV PUSH SCH ×2 (09:11→20:46)
[2017-10-28] MEDS: SODIUM CHLORIDE 0.9% FLUSH 10 ML FLUSH IV FLUSH SCH ×2 (09:11→20:47)
[2017-10-28 09:19] LABS: ALBUMIN 2.1 GM/DL (3.4-5.0); AST (GOT) 11 U/L (15-37); BICARBONATE 22.9 MEQ/L (21.0-32.0); BLOOD UREA NITROGEN 46 MG/DL (7-18); CHLORIDE 108 MEQ/L (98-107); CREATININE 1.47 MG/DL (0.60-1.30); GLOMERULAR FILTRATION RATE 49 ML/MIN (>89); GLUCOSE,RANDOM 127 MG/DL (74-106); MAGNESIUM 2.1 MG/DL (1.5-2.5); SODIUM (NA) 140 MEQ/L (136-145)
[2017-10-28 09:20] LABS: ALT (GPT) 19 U/L (12-78); PHOSPHORUS 4.3 MG/DL (2.5-4.9)
[2017-10-28 09:22] LABS: ALKALINE PHOSPHATASE 43 U/L (45-117); TOTAL BILIRUBIN ADULT 0.4 MG/DL (0.2-1.0); TOTAL PROTEIN 5.7 GM/DL (6.4-8.2)
[2017-10-28] MEDS ORDERED: IOHEXOL 350 MG/ML 100 ML BTL (for Cath Lab) OTHER ONE (13:10)
[2017-10-28] MEDS ORDERED: MIDAZOLAM HCL 2 MG/2 ML VIAL ONE (13:27)
[2017-10-28] MEDS ORDERED: HEPARIN-NS/PF INJ 1,000 ML ONE (13:27)
[2017-10-28] MEDS ORDERED: MISC INFORMATION XX ONE (15:15)
[2017-10-28] MEDS ORDERED: SPIRONOLACTONE 25 MG TAB PO ONE (15:15)
[2017-10-28] MEDS ORDERED: BACITRACIN OINT 0.9 GM PKT TOP ONE (15:15)
[2017-10-28] MEDS ORDERED: SODIUM CHLORIDE 0.9% FLUSH 10 ML FLUSH IV FLUSH PRN (15:15)
[2017-10-28] MEDS: LABETALOL HCL 100 MG/20 ML VIAL IV PUSH PRN ×2 (15:51→22:40)
[2017-10-28] MEDS ORDERED: SPIRONOLACTONE 25 MG TAB PO SCH (18:00)
[2017-10-29] VITALS (29 sets, daily range): BP systolic 146–185; BP diastolic 79–100; PULSE 70–104; RESP 14–20; TEMP 97.8–98.3; O2SAT 95–96
[2017-10-29] MEDS: PIPERACIL-TAZO 4.5 GM PREMIX 100 ML IV SCH ×5 (00:14→23:46)
[2017-10-29] MEDS: LABETALOL HCL 100 MG/20 ML VIAL IV PUSH PRN ×2 (02:48→20:12)
[2017-10-29] MEDS: CHLORHEXIDINE GLUCONATE 2 % 1 PACK (2 CLOTHS) TOP SCH (04:00)
[2017-10-29 05:55] LABS: HEMATOCRIT 33.1 % (39.0-51.0); HEMOGLOBIN 10.8 GM/DL (13.0-17.0); MEAN CELL VOLUME 83.3 FL (80.0-100.0); MEAN CORPUSCULAR HEMOGLOBIN 27.1 PG (27.0-34.0); MEAN CORPUSCULAR HGB CONC 32.5 % (32.0-36.0); MEAN PLATELET VOLUME 9.3 FL (7.0-11.0); PLATELET COUNT 253 TH/MM3 (150-450); RED BLOOD COUNT 3.98 MIL/MM3 (4.50-5.90); RED CELL DISTRIBUTION WIDTH 15.2 % (11.6-17.2)
[2017-10-29 06:24] LABS: BICARBONATE 23.3 MEQ/L (21.0-32.0); CHOLESTEROL/ HDL RATIO 7.3 RATIO; CREATININE 1.24 MG/DL (0.60-1.30); HDL CHOLESTEROL 28.9 MG/DL (40.0-60.0); MAGNESIUM 2.1 MG/DL (1.5-2.5)
--- NOTE | 2017-10-29 07:22 | MA ---
cc: CCList DATE 10/28/2017 PROCEDURE PERFORMED 1. Right heart catheterization. 2. Left heart catheterization. 3. Left ventriculography. 4. Coronary arteriography. INDICATIONS Cardiomyopathy, CHF, angina equivalent, [place] Heart Association Class III-IV. Recurrent admissions for CHF exacerbations. No history of ischemic evaluation on workup. Coronary artery disease. PROCEDURE The patient was brought to the Cardiac Catheterization Laboratory, prepped and draped in the usual sterile fashion. 10 cc of 1% lidocaine was used to locally anesthetize the right common femoral artery. A 4-Irish sheath was placed in the right common femoral artery, a 5-Irish sheath placed in the right common femoral vein. The right heart catheterization was performed first with the following findings: The pulmonary capillary wedge pressure was 36/39-26. However, I suspect this was inaccurate due to lack of proper wedging. I was not able to wedge the balloon any further due to catheter overlap. PA pressure was 39/19-30. RV pressure 43/4-8. RA pressure 11/8-6. The cardiac output by Gail is 8.0 liters/minute. Cardiac index by Gail is 4.0 liters/meter2/minute. SVR is 1173.9 dynes. On room air the femoral artery saturation is 94.9%, PA saturation 72.7%, RA saturation 72.0%. Left heart catheterization was then performed with a 4-Irish JL4 and JR4 catheters with the following findings: LV pressure is 160/10-15. EF is 55%. CORONARY ARTERIOGRAPHY The right coronary artery is large and dominant. It has a 20-30% proximal stenosis. Reference vessel diameter is probably 4.5-5.0 mm in diameter. The mid-segment has a smooth, 20% stenosis. The left main coronary artery has no significant obstructive disease. The LAD has minimal luminal irregularities in the proximal to mid segment up to 5-10% angiographically. The first diagonal artery is a small to medium-sized vessel, reference vessel diameter of 2.0 to 2.25 mm in diameter. No significant obstructive disease. It has a very ostial proximal bifurcation. The more lateral branch is very small, probably 1 mm in diameter with no significant obstructive disease. The left circumflex vessel has again minimal luminal irregularities in the proximal segment up to 5-10% angiographically. There is a small ramus intermedius vessel, reference vessel diameter probably 1 to 1.5 mm in diameter with an ostial 20% stenosis. CONCLUSION Angiographically minimal to mild three-vessel coronary artery disease in a right-dominant system as detailed above. 5. Normal LV systolic function, ejection fraction of 55%. 6. Cardiac index 4.0 liters/meter2/minute. 7. Mild to moderate pulmonary hypertension with a PA pressure of 39/19-30. RECOMMENDATIONS Recommend medical management for coronary artery disease, cardiac risk factor modification, inhaled marijuana abstinence, aspirin 81 mg daily. guidelines. Follow up BNP. The patient has what appears to be an allergic reaction with rash formation with Lasix suggesting POSSIBLE SULFA ALLERGY. We will need to reevaluate his meds to determine ultimate risk/benefit ratio of various combinations of diuretics. MD PRAVIN Gerard/VITALY /2:07 PM /6:35 AM
--- NOTE | 2017-10-29 08:29 | CATHPROC ---
[facility] HIS Report Study Information Study Number Admission Scheduled Start Study Start [id number] Oct 27 2017 4:48AM 10/28/2017 Oct 28 2017 1:15PM [facility] Cardiac Catheterization Admit Source Facility Department Emergency department [facility] - Fire Systems Inspector Physician and Clinical Staff Initial Anthony Carl Club Lounge Attendant Gisela Hudson BSN Recorder Danita Cutler,RT(R) (BS) Scrub Walker BurnsRT(R) Procedures Performed Procedure Location (Site) Vessel Name Coronary Angiograms LCA Left Coronary Coronary Angiograms RCA Right Coronary LV Gram-hand inj. LV LV Ventricle Equipment Time Security Installation Sales Technician Description Size Mfg Part Number Used/Scraped CATHETER, FR5 SWAN LOVE 13:26 indidebt FR 5 [id number] *[id number] Used MONITOR TRANSDUCER, TRUWAVE [id number] 13:26 MAYNARD GIORDANO * Used W/STOCKCOCK *[id number] *[id number] *[id number] 13:26 MED[employer] IND[employer] PACK, CCL CUSTOM * Used *[id number] 13:26 [employer] PACER PEN, SKIN DUAL W/ RULER * Used *[id number] 13:26 [employer] MEDICAL SHEATH, FR5.5 PRELUDE 11CM FR 5.5 Used 038ACT# [id number] 13:26 [employer] MEDICAL WIRE, 3MMJ .035 180CM 180CM Used *[id number] 13:26 NAMIC MANIFOLD, 4 PORT * Used *[id number] 13:26 [employer]ED OMNIPAQUE, 350 MG, 150ML 150ML [id number] Used [id number] 13:26 [employer] BLANKET,WARM AIR CCL * Used *[id number] 13:26 [employer] MEDICAL SHEATH, FR4 TERUMO (10CM) FR 4 Used *[id number] History: Current Medications Medication Dosage/Unit Route Frequency Last Date/Time Taken Beta Zander ASA History: Allergies Allergy Reaction Lasix rash History: Risk Factors Family History of Hypertension Dyslipidemia Previous [place] Previous Heart Failure Premature CAD Yes No No No Yes Prior Valve Prior PCI Prior CABG Surgery No No No Cerebrovascular Peripheral Artery Chronic Lung On Dialysis Diabetes Disease Disease Disease No No No No No History: Stress Tests Stress or Imaging Studies Performed No History: Other Current Smoker Method Quit Packs a Day Years Used Pack Years No Cigarettes 7 Years Ago 1 40 40 Labs Hgb (g/dl) Hct (%) WBC (l/cumm) Platelets (thousands) 11.60-17.00 35.00-51.00 4.00-11.00 150.00-450.00 10.4 30.9 14 229 Glucose (mg/dl) BUN (mg/dl) Creatinine (mg/dl) BUN:Creatinine (1:x) 74.00-106.00 7.00-18.00 0.50-1.30 10.00-20.00 127 46 1.4 32.9 Na (meq/l) K (meq/l) 136.00-145.00 3.50-5.10 140 3.6 INR (PTT:PT) 0.90-1.10 1.1 Troponin I (ng/ml) CPK (u/l) CPK-MB (ng/ML) 0.02-0.05 26.00-308.00 0.50-3.60 0.12 56 Not Drawn Medication Medication Total Dose (Bolus/Oral) Medication Total Dosage/Unit 1% XYLOCAINE 20 mL VERSED 2 mg Medications (Bolus/Oral) Medication Time Given Dosage/Unit Administered By Reason VERSED 10/28/2017 1:51:15 PM 1 mg Gisela Hudson 1 mg VERSED given in lab by Gisela Hudson BSN in Left Antecubital via Peripheral IV. 1% XYLOCAINE 10/28/2017 1:52:25 PM 20 mL Anthony Garcia 20 mL 1% XYLOCAINE given in lab by Anthony Garcia in Right Groin via Subcutaneous. VERSED 10/28/2017 1:54:21 PM 1 mg Gisela Hudson 1 mg VERSED given in lab by Gisela Husdon BSN in Left Antecubital via Peripheral IV. Medication (Drip) Medication Time Given Dosage/Unit Concentration/Unit Diluent (ml) Solution IV Solutions 10/28/2017 1:15:39 PM 0 mL (IV) 500 NaCl .9 IV Solutions given in lab by Gisela Hudson BSN in Left Antecubital via Peripheral IV. Pump/Dri p Flow = 30 ml/hr using NaCl .9. Initial Case Assessment Cardiovascular HR Rhythm NIBP Chest Pain 88 reg 165/95 0 Edema Present Skin color Skin None Normal Warm Dry Circulatory - Right Pulses Dorsalis Pedis Femoral 3 3 Scale (0,1,2,3,4,d) Circulatory - Left Pulses Dorsalis Pedis Femoral 3 3 Scale (0,1,2,3,4,d) Circulatory - Lower Extremities Color Lower Right Color Lower Left Normal Normal Neurological State Oriented to time-place- Alert Moves all extremities person Respiration - General Respiration Rate SpO2 (%) (B/min) 20 95 Chronological Log Time Study Chronological Log 13:10:18 Patient arrived via Bed. 13:10:21 Patient Name, D.O.B, / Armband Verified By R.N. 13:15:24 Consent signed by the physician and the patient and verified by the Fire Systems Inspector staff. 13:15:25 Pre-op and post- op instructions given; patient acknowledges understanding of instructions. Vitals capture started with the following parameters, Patient=Adult, Interval=5 min, Initial Pr pgfolv=213 mmHg, 13:15:26 Deflation Rate=5 mmHg, Cuff placed on Left Arm 13:15:27 Verbal Stimulation=2 Physical Stimulation=2 Airway=2 Respiration=2 TOTAL=8. (0=absent, 1=li mited, 2=present) 13:15:28 Presedation assessment performed by Fire Systems Inspector RN. 13:15:33 Patient has been NPO for More than 6Hrs. 13:15:33 Skin Breakdown none per pt 13:15:34 Patient Warmer Placed on the Table. 13:15:37 Dorian Prominences Protected 13:15:37 A # 20 IV was noted in the Antecubital (left). Grade = 0 13:15:38 A # 20 IV was noted in the Antecubital (right). Grade = 0 IV Solutions given in lab by Gisela Hudson BSN in Left Antecubital via Peripheral IV. Pu mp/Drip Flow = 30 ml/hr 13:15:39 using NaCl .9. 13:15:40 History and physical on the chart or being dictated. Assessment: Initial Case, HR=88 BPM, Rhythm=reg, MXQI=180/95 mmhg, Chest Pain=0, Edema=None, Co raiza=Normal, Skin = Warm, Dry Right Pulses: Eugene Ped=3, Femoral=3 Left Pulses: Eugene Ped=3, Femoral=3 13:15:43 Lower Right Extremities: Color=Normal Lower Left Extremities: Color=Normal Neurological: State=Alert, Ox3, TRIPLETT Respiration: Resp=20 B/min, SpO2=95 % 13:16:33 JXCP=181/95 mmhg, SpO2=96.0 %, Resp=10 B/min, Pain=0, Sara=10, Mandujano=2 13:21:11 HR=87 bpm, DGUL=641/108 mmhg, SpO2=97.0 %, Resp=32 B/min, Pain=0, Sara=10, Mandujano=2 13:25:21 Bilateral groins prepped with 2% chlorhexidine, and draped after a 3 minute waiting time. 13:26:08 HR=89 bpm, BWNS=350/104 mmhg, SpO2=94.0 %, Resp=13 B/min, Pain=0, Sara=10, Mandujano=2 13:29:27 MD paged 13:30:45 MD responded 13:31:14 HR=91 bpm, JUHJ=966/106 mmhg, SpO2=94.0 %, Resp=30 B/min, Pain=0, Sara=10, Mandujano=2 13:32:46 Pressure channel 1 zeroed. 13:32:59 Reference ECG taken 13:36:09 HR=85 bpm, AWIC=049/100 mmhg, SpO2=93.0 %, Resp=26 B/min, Pain=0, Sara=10, Mandujano=2 13:41:12 HR=76 bpm, FMIX=569/84 mmhg, SpO2=95.0 %, Resp=15 B/min, Pain=0, Sara=10, Mandujano=2 13:46:07 HR=83 bpm, FBPW=006/97 mmhg, SpO2=93.0 %, Resp=32 B/min, Pain=0, Sara=10, Mandujano=2 13:48:44 MD arrived 13:51:12 HR=80 bpm, URCS=563/90 mmhg, SpO2=93.0 %, Resp=25 B/min, Pain=0, Sara=10, Mandujano=2 13:51:15 1 mg VERSED given in lab by iGsela Hudson BSN in Left Antecubital via Peripheral IV. Time Out. Correct patient, correct procedure, correct physician, power injector not loaded with contrast with surgical 13:52:06 team present. Time Out Concurred by MD and individual staff in procedure. 13:52:14 Case Start 13:52:25 20 mL 1% XYLOCAINE given in lab by Anthony Garcia in Right Groin via Subcutaneous. 13:53:26 Access site was Right Femoral Artery. 13:53:34 A SHEATH, FR4 TERUMO (10CM) FR 4 was advanced into the Fem Art (right) using the Percutaneo us technique. 13:53:47 Saturation: Site=FA (Femoral Artery) , O2=94.9 %, Hgb=10.4 gm/dl, Condition=Condition 1. Us ed in calculation. 13:54:21 1 mg VERSED given in lab by Gisela Hudson BSN in Left Antecubital via Peripheral IV. 13:54:57 Access site was Right Femoral Vein. 13:55:08 A SHEATH, FR5.5 PRELUDE 11CM FR 5.5 was advanced into the Fem Art (right) using the Percuta neous technique. 13:55:24 A CATHETER, FR5 SWAN LOVE MONITOR FR 5 was inserted via Fem Art (right) Recorded Pressure: PCW, HR=91, Condition=Condition 1 13:56:12 (Pulmonary Capillary Wedge) PCW 36/39/26 13:56:33 HR=91 bpm, DIMU=134/101 mmhg, SpO2=94.0 %, Resp=36 B/min, Pain=0, Sara=10, Mandujano=2 Recorded Pressure: MPA, HR=91, Condition=Condition 1 13:56:34 (Main Pulmonary Artery) MPA 39/19/30 13:57:11 Saturation: Site=PA (Pulmonary Artery) , O2=72.7 %, Hgb=10.4 gm/dl, Condition=Condition 1. Used in calculation. Recorded Pressure: RV, HR=90, Condition=Condition 1 13:57:41 (Right Ventricle) RV 43/4/8 Recorded Pressure: RA, HR=92, Condition=Condition 1 13:58:01 (Right Atrium) RA 11/6 13:58:33 Saturation: Site=RA (Right Atrium) , O2=72 %, Hgb=10.4 gm/dl, Condition=Condition 1. Used i n calculation. 13:58:49 [place] Love Catheter Removed A JR 4.0 INFINITI CATHETER FR 4 was advanced over a wire. OMNIPAQUE, 350 MG, 150ML 150ML was us ed for 13:58:56 injections. Recorded Pressure: LV, HR=90, Condition=Condition 1 13:59:34 (Left Ventricle) LV 166/12/18 13:59:45 The LV was manually injected with 8 cc's and visualized. OMNIPAQUE, 350 MG, 150ML 150ML use d. Recorded Pressure: LV, Ao, HR=99, Condition=Condition 1 14:00:05 (Left Ventricle) LV 180/13/15, (Aorta) Ao 170/100/133 Recorded Pressure: Ao, HR=90, Condition=Condition 1 14:00:34 (Aorta) Ao 160/96/124 14:00:43 The RCA was injected and visualized at various angles. OMNIPAQUE, 350 MG, 150ML 150ML used . 14:01:10 HR=93 bpm, KHUQ=144/105 mmhg, SpO2=92.0 %, Resp=33 B/min, Pain=0, Sara=10, Mandujano=2 14:01:42 Catheter was removed A JL 4.0 INFINITI CATHETER FR 4 was advanced over a wire. OMNIPAQUE, 350 MG, 150ML 150ML was us ed for 14:01:42 injections. 14:02:06 The LCA was injected and visualized at various angles. OMNIPAQUE, 350 MG, 150ML 150ML used . 14:03:02 Catheter was removed 14:03:54 Case End 14:04:34 Catheter(s) removed without difficulty 14:04:57 No case complications noted. 14:05:08 Bedside Report will be given. 14:05:28 artery Sheath removed; pressure applied to access site. 14:06:09 HR=92 bpm, TDFV=567/103 mmhg, SpO2=93.0 %, Resp=32 B/min, Pain=0, Sara=10, Mandujano=2 14:11:10 HR=91 bpm, HVMO=557/101 mmhg, SpO2=93.0 %, Resp=14 B/min, Pain=0, Sara=10, Mandujano=2 14:15:45 vein Sheath removed; pressure applied to access site. 14:16:11 HR=84 bpm, TCMP=118/99 mmhg, SpO2=95.0 %, Resp=12 B/min, Pain=0, Sara=10, Mandujano=2 14:21:10 HR=90 bpm, VTPK=442/107 mmhg, SpO2=94.0 %, Resp=15 B/min, Pain=0, Sara=10, Mandujano=2 14:24:31 Sterile dressing applied to site End Study - Contrast Media Used In Study Contrast Total Opened (mL) Total Used (mL) Total Wasted (mL) Omnipaque 60 60 0 End Study - Maximum Contrast Load Max Contrast Load (mL) 292.2 End Study - Radiation Exposure Fluoro Time (minutes) 1.4 End Study - Sheaths Sheaths Pulled By Sheath Hold Time (min) Walker Burns End Study - Patient Disposition Complications Transferred To Interventional Outcome No Critical Care Bed No attempt made
[2017-10-29] MEDS: DOCUSATE SODIUM 50 MG/SENNA 8.6 MG TAB PO SCH ×2 (09:00→20:13)
[2017-10-29] MEDS: LISINOPRIL 10 MG TAB PO SCH (09:01)
[2017-10-29] MEDS: ETHACRYNIC ACID 25 MG TAB PO SCH (09:01)
[2017-10-29] MEDS: ASPIRIN EC 81 MG TABEC PO SCH (09:01)
[2017-10-29] MEDS: CARVEDILOL 12.5 MG TAB PO SCH ×2 (09:01→20:11)
[2017-10-29] MEDS: SPIRONOLACTONE 50 MG TAB PO SCH ×2 (09:01→17:20)
[2017-10-29] MEDS: ALBUTEROL SULFATE 90 MCG/ACT HFA 8 GM INHALER INH SCH ×4 (09:02→20:11)
[2017-10-29] MEDS: TIOTROPIUM BROMIDE 18 MCG INH INH SCH (09:02)
[2017-10-29] MEDS: FAMOTIDINE 20 MG/2 ML VIAL IV PUSH SCH ×2 (09:02→20:13)
[2017-10-29] MEDS: SODIUM CHLORIDE 0.9% FLUSH 10 ML FLUSH IV FLUSH SCH ×2 (09:03→20:12)
[2017-10-29] MEDS: AZITHROMYCIN INJ 500 MG in SODIUM CHLOR 0.9% 250 ML INJ 250 ML IV SCH (09:05)
--- NOTE | 2017-10-29 14:50 | PD.CARD.PN ---
Subjective Subjective Remarks alert in nad Objective Medications Current Medications Medications (Trade) Dose Ordered Sig/Jessica Route Start Time Stop Time Status Last Admin (Coreg) 25 mg BID PO 10/27/17 09:00 10/29/17 09:01 (Edecrin) 25 mg DAILY PO 10/27/17 09:00 10/29/17 09:01 (Prinivil) 10 mg DAILY PO 10/27/17 09:00 10/29/17 09:01 (Tylenol) 650 mg Q6H PRN PO 10/27/17 05:15 10/27/17 07:30 (Morphine Inj) 2 mg Q2H PRN IV PUSH 10/27/17 05:15 10/28/17 17:46 (Pepcid Inj) 20 mg Q12HR IV PUSH 10/27/17 09:00 10/29/17 09:02 (Ativan Inj) 1 mg Q1H PRN IV PUSH 10/27/17 05:15 (Zofran Inj) 4 mg Q6H PRN IV PUSH 10/27/17 05:15 (Ambien) 5 mg HS PRN PO 10/27/17 05:15 (Duoneb Neb) 1 ampule Q2HR NEB PRN INH 10/27/17 05:15 Miscellaneous Information 1 Q361D XX 10/27/17 05:15 (Chlorhexidine 2% Cloth) 3 pack Taper DAILY@04 TOP 10/28/17 04:00 10/24/18 03:59 (Chlorhexidine 2% Cloth) 3 pack UNSCH PRN TOP 10/27/17 05:15 (Erika-Colace) 1 tab BID PO 10/27/17 09:00 (Milk Of Magnesia Liq) 30 ml Q12H PRN PO 10/27/17 05:15 (Senokot) 17.2 mg Q12H PRN PO 10/27/17 05:15 (Dulcolax Supp) 10 mg DAILY PRN RECTAL 10/27/17 05:15 (Lactulose Liq) 30 ml DAILY PRN PO 10/27/17 05:15 (Spiriva Inh) 18 mcg DAILY INH 10/27/17 09:00 10/29/17 09:02 (Proair Hfa Inh) 1 puff QID INH 10/27/17 09:00 10/29/17 13:59 Azithromycin 500 mg/Sodium Chloride 250 ml @ 250 mls/hr Q24H IV 10/27/17 08:00 10/29/17 09:05 Piperacillin Sod/ Tazobactam Sod 100 ml @ 200 mls/hr Q6H IV 10/27/17 06:15 10/29/17 13:53 (Ecotrin Ec) 81 mg DAILY PO 10/28/17 09:00 10/29/17 09:01 (NS Flush) 2 ml BID IV FLUSH 10/28/17 21:00 10/29/17 09:03 (NS Flush) 2 ml UNSCH PRN IV FLUSH 10/28/17 15:15 (Trandate Inj) 10 mg Q4H PRN IV PUSH 10/28/17 15:30 10/29/17 02:48 (Aldactone) 50 mg BID@,18 PO 10/29/17 09:00 10/29/17 09:01 Vital Signs / I&O Vital Signs Date Time Temp Pulse Resp B/P (MAP) Pulse Ox O2 Delivery O2 Flow Rate FiO2 10/29/17 14:00 78 10/29/17 13:14 87 10/29/17 13:05 96 21 10/29/17 12:08 80 10/29/17 11:12 98.0 86 18 146/87 (106) 96 10/29/17 11:12 84 10/29/17 10:08 87 10/29/17 09:21 84 10/29/17 08:20 96 10/29/17 08:20 98.2 94 18 161/86 (111) 96 10/29/17 06:00 104 10/29/17 05:00 104 10/29/17 04:42 Nasal Cannula 2.00 10/29/17 04:05 87 10/29/17 03:05 90 10/29/17 03:00 98.3 90 14 166/79 (108) 95 10/29/17 02:05 89 10/29/17 01:00 90 10/29/17 00:00 100 10/28/17 23:00 94 10/28/17 23:00 98.1 94 14 171/89 (116) 96 10/28/17 22:00 94 10/28/17 21:00 88 10/28/17 20:00 104 10/28/17 19:00 97.9 81 14 175/93 (120) 97 10/28/17 19:00 81 10/28/17 18:16 88 10/28/17 18:16 98.0 83 18 176/99 (124) 96 10/28/17 18:06 18 I/O 10/28/17 10/28/17 10/28/17 10/29/17 10/29/17 10/29/17 06:59 14:59 22:59 06:59 14:59 22:59 Intake Total 440 ml 240 ml 820 ml 250 ml Output Total 650 ml 200 ml 450 ml Balance -210 ml 40 ml 370 ml 250 ml Intake Oral 240 ml 240 ml 720 ml IV Total 200 ml 100 ml 250 ml Output Urine Total 650 ml 200 ml 450 ml Physical Exam GENERAL: SKIN: Warm and dry. HEAD: Normocephalic. EYES: No scleral icterus. No injection or drainage. NECK: Supple, trachea midline. No JVD or lymphadenopathy. CARDIOVASCULAR: Regular rate and rhythm without murmurs, gallops, or rubs. RESPIRATORY: Breath sounds equal bilaterally. No accessory muscle use. GASTROINTESTINAL: Abdomen soft, non-tender, nondistended. MUSCULOSKELETAL: No cyanosis, or edema. BACK: Nontender without obvious deformity. No CVA tenderness. Laboratory Laboratory Tests Test 10/29/17 05:08 White Blood Count 10.0 TH/MM3 Red Blood Count 3.98 MIL/MM3 Hemoglobin 10.8 GM/DL Hematocrit 33.1 % Mean Corpuscular Volume 83.3 FL Mean Corpuscular Hemoglobin 27.1 PG Mean Corpuscular Hemoglobin Concent 32.5 % Red Cell Distribution Width 15.2 % Platelet Count 253 TH/MM3 Mean Platelet Volume 9.3 FL Blood Urea Nitrogen 35 MG/DL Creatinine 1.24 MG/DL Random Glucose 104 MG/DL Calcium Level 8.0 MG/DL Magnesium Level 2.1 MG/DL Sodium Level 141 MEQ/L Potassium Level 3.6 MEQ/L Chloride Level 108 MEQ/L Carbon Dioxide Level 23.3 MEQ/L Anion Gap 10 MEQ/L Estimat Glomerular Filtration Rate 60 ML/MIN B-Type Natriuretic Peptide 791 PG/ML Triglycerides Level 188 MG/DL Cholesterol Level 211 MG/DL LDL Cholesterol 145 MG/DL HDL Cholesterol 28.9 MG/DL Cholesterol/HDL Ratio 7.30 RATIO Assessment and Plan Problem List: (1) Acute pulmonary edema ICD Codes: J81.0 - Acute pulmonary edema Status: Acute (2) CAD (coronary artery disease) ICD Codes: I25.10 - Atherosclerotic heart disease of [place] coronary artery without angina pectoris (3) Diastolic CHF, chronic ICD Codes: I50.32 - Chronic diastolic (congestive) heart failure (4) Diastolic CHF, acute on chronic ICD Codes: I50.33 - Acute on chronic diastolic (congestive) heart failure Assessment and Plan 1.) CAD - assymptomatic, continue aspirin 2.) Diastolic chf - increase aldactone 50 mg bid, has rash with lasix ok to dc from cv standpoint, f/u with me 10/30/17 Anthony Garcia MD Oct 29, 2017 14:50
[2017-10-29] MEDS: ACETAMINOPHEN 325 MG TAB PO PRN (17:26)
[2017-10-30] VITALS (30 sets, daily range): BP systolic 150–190; BP diastolic 73–98; PULSE 69–103; RESP 19–22; TEMP 97.9–98.3; O2SAT 94–96
[2017-10-30] MEDS: CHLORHEXIDINE GLUCONATE 2 % 1 PACK (2 CLOTHS) TOP SCH (03:07)
[2017-10-30] MEDS: LABETALOL HCL 100 MG/20 ML VIAL IV PUSH PRN ×3 (04:15→13:20)
[2017-10-30 05:21] LABS: BICARBONATE 25.4 MEQ/L (21.0-32.0); CREATININE 1.22 MG/DL (0.60-1.30)
[2017-10-30] MEDS: PIPERACIL-TAZO 4.5 GM PREMIX 100 ML IV SCH ×2 (06:05→12:10)
[2017-10-30] MEDS: SPIRONOLACTONE 50 MG TAB PO SCH (06:44)
[2017-10-30] MEDS: ACETAMINOPHEN 325 MG TAB PO PRN (06:45)
[2017-10-30] MEDS: TIOTROPIUM BROMIDE 18 MCG INH INH SCH (08:17)
[2017-10-30] MEDS: ALBUTEROL SULFATE 90 MCG/ACT HFA 8 GM INHALER INH SCH ×2 (08:18→13:20)
[2017-10-30] MEDS: CARVEDILOL 12.5 MG TAB PO SCH (08:19)
[2017-10-30] MEDS: LISINOPRIL 10 MG TAB PO SCH (08:19)
[2017-10-30] MEDS: ASPIRIN EC 81 MG TABEC PO SCH (08:19)
[2017-10-30] MEDS: ETHACRYNIC ACID 25 MG TAB PO SCH (08:20)
[2017-10-30] MEDS: DOCUSATE SODIUM 50 MG/SENNA 8.6 MG TAB PO SCH (08:20)
[2017-10-30] MEDS: FAMOTIDINE 20 MG/2 ML VIAL IV PUSH SCH (08:20)
[2017-10-30] MEDS: SODIUM CHLORIDE 0.9% FLUSH 10 ML FLUSH IV FLUSH SCH (08:20)
[2017-10-30] MEDS: AZITHROMYCIN INJ 500 MG in SODIUM CHLOR 0.9% 250 ML INJ 250 ML IV SCH (09:00)
[2017-10-30] MEDS ORDERED: amLODIPine BESYLATE 5 MG TAB PO ONE ×2 (09:00→13:30)
[2017-10-30] MEDS ORDERED: LISINOPRIL 20 MG TAB PO SCH (09:00)
[2017-10-30] MEDS ORDERED: amLODIPine BESYLATE 5 MG TAB PO SCH (09:00)
[2017-10-30] MEDS ORDERED: ALDA50TA2 PO (13:09)
[2017-10-30] MEDS ORDERED: ECASA81 PO (13:09)
[2017-10-30] MEDS ORDERED: AMLO5 PO (13:09)
[2017-10-30] MEDS ORDERED: AZIT500T2 PO (13:11)
[2017-10-30] MEDS ORDERED: CEFU1TAB18 PO (13:11)
--- NOTE | 2017-10-30 13:11 | HHI.DCPOC ---
Discharge Care Plan Diagnosis: (1) Uncontrolled hypertension (2) Leukocytosis (3) Acute pulmonary edema (4) CAD (coronary artery disease) (5) Diastolic CHF, acute on chronic Goals to Promote Your Health * To prevent worsening of your condition and complications * To maintain your health at the optimal level Directions to Meet Your Goals Take your medications as prescribed Follow your dietary instruction Follow activity as directed Keep your appointments as scheduled Take your immunizations and boosters as scheduled If your symptoms worsen call your PCP, if no PCP go to Urgent Care Center or Emergency Room Smoking is Dangerous to Your Health. Avoid second hand smoke Call the 24-hour hour crisis hotline for domestic abuse at Navarro Summers MD Oct 30, 2017 13:11
[2017-10-30] MEDS ORDERED: LISI10TA3 PO (13:16)
[2017-10-30] MEDS ORDERED: ETHA5TAB PO (13:16)
[2017-10-30] MEDS ORDERED: LIPI20TA PO (14:30)
--- NOTE | 2017-10-30 15:17 | PD.CARD.PN ---
Subjective Subjective Remarks alert in nad Objective Medications Current Medications Medications (Trade) Dose Ordered Sig/Jessica Route Start Time Stop Time Status Last Admin (Coreg) 25 mg BID PO 10/27/17 09:00 10/30/17 08:19 (Edecrin) 25 mg DAILY PO 10/27/17 09:00 10/30/17 08:20 (Tylenol) 650 mg Q6H PRN PO 10/27/17 05:15 10/30/17 06:45 (Morphine Inj) 2 mg Q2H PRN IV PUSH 10/27/17 05:15 10/28/17 17:46 (Pepcid Inj) 20 mg Q12HR IV PUSH 10/27/17 09:00 10/30/17 08:20 (Ativan Inj) 1 mg Q1H PRN IV PUSH 10/27/17 05:15 (Zofran Inj) 4 mg Q6H PRN IV PUSH 10/27/17 05:15 (Ambien) 5 mg HS PRN PO 10/27/17 05:15 (Duoneb Neb) 1 ampule Q2HR NEB PRN INH 10/27/17 05:15 Miscellaneous Information 1 Q361D XX 10/27/17 05:15 (Chlorhexidine 2% Cloth) 3 pack Taper DAILY@04 TOP 10/28/17 04:00 10/24/18 03:59 (Chlorhexidine 2% Cloth) 3 pack UNSCH PRN TOP 10/27/17 05:15 (Erika-Colace) 1 tab BID PO 10/27/17 09:00 (Milk Of Magnesia Liq) 30 ml Q12H PRN PO 10/27/17 05:15 (Senokot) 17.2 mg Q12H PRN PO 10/27/17 05:15 (Dulcolax Supp) 10 mg DAILY PRN RECTAL 10/27/17 05:15 (Lactulose Liq) 30 ml DAILY PRN PO 10/27/17 05:15 (Spiriva Inh) 18 mcg DAILY INH 10/27/17 09:00 10/30/17 08:17 (Proair Hfa Inh) 1 puff QID INH 10/27/17 09:00 10/30/17 13:20 Azithromycin 500 mg/Sodium Chloride 250 ml @ 250 mls/hr Q24H IV 10/27/17 08:00 10/30/17 09:00 Piperacillin Sod/ Tazobactam Sod 100 ml @ 200 mls/hr Q6H IV 10/27/17 06:15 10/30/17 12:10 (Ecotrin Ec) 81 mg DAILY PO 10/28/17 09:00 10/30/17 08:19 (NS Flush) 2 ml BID IV FLUSH 10/28/17 21:00 10/30/17 08:20 (NS Flush) 2 ml UNSCH PRN IV FLUSH 10/28/17 15:15 (Trandate Inj) 10 mg Q4H PRN IV PUSH 10/28/17 15:30 10/30/17 13:20 (Aldactone) 50 mg BID@18 PO 10/29/17 09:00 10/30/17 06:44 (Prinivil) 20 mg DAILY PO 10/30/17 09:00 10/30/17 10:19 (Norvasc) 10 mg DAILY PO 10/31/17 09:00 (Lipitor) 20 mg ONCE ONCE PO 10/30/17 15:30 10/30/17 15:31 10/30/17 15:02 Vital Signs / I&O Vital Signs Date Time Temp Pulse Resp B/P (MAP) Pulse Ox O2 Delivery O2 Flow Rate FiO2 10/30/17 15:00 98.2 89 19 168/81 (110) 96 10/30/17 14:00 72 10/30/17 13:50 165/90 (115) 10/30/17 13:24 168/98 (121) 10/30/17 13:23 173/93 (119) 10/30/17 13:00 77 10/30/17 12:13 171/85 (113) 10/30/17 12:00 89 10/30/17 11:00 78 10/30/17 11:00 97.9 74 20 181/95 (123) 95 10/30/17 10:20 177/89 (118) 10/30/17 10:00 80 10/30/17 09:06 157/94 (115) 10/30/17 09:00 83 10/30/17 08:00 83 10/30/17 08:00 20 10/30/17 07:15 97 10/30/17 07:00 98.3 86 20 184/98 (126) 94 1/10/18 06:20 92 10/30/17 06:07 186/97 (126) 10/30/17 05:08 99 10/30/17 05:08 103 10/30/17 04:26 98.0 93 22 190/95 (126) 96 10/30/17 04:12 91 10/30/17 03:06 95 10/30/17 02:02 69 10/30/17 01:05 80 10/30/17 00:28 86 10/30/17 00:05 90 10/29/17 23:50 98 10/29/17 23:47 98.2 91 19 164/91 (115) 96 10/29/17 22:10 96 21 10/29/17 22:00 70 10/29/17 21:11 173/98 (123) 10/29/17 21:00 86 10/29/17 20:07 85 10/29/17 19:59 97.8 92 20 185/100 (128) 96 10/29/17 19:00 73 10/29/17 18:15 77 10/29/17 17:27 78 10/29/17 16:09 85 I/O 10/29/17 10/29/17 10/29/17 10/30/17 10/30/17 10/30/17 07:00 15:00 23:00 07:00 15:00 23:00 Intake Total 820 ml 350 ml 820 ml 450 ml Output Total 450 ml Balance 370 ml 350 ml 820 ml 450 ml Intake Oral 720 ml 720 ml IV Total 100 ml 350 ml 100 ml 450 ml Output Urine Total 450 ml # Voids 4 # Bowel Movements 1 Physical Exam GENERAL: SKIN: Warm and dry. HEAD: Normocephalic. EYES: No scleral icterus. No injection or drainage. NECK: Supple, trachea midline. No JVD or lymphadenopathy. CARDIOVASCULAR: Regular rate and rhythm without murmurs, gallops, or rubs. RESPIRATORY: Breath sounds equal bilaterally. No accessory muscle use. GASTROINTESTINAL: Abdomen soft, non-tender, nondistended. MUSCULOSKELETAL: No cyanosis, or edema. BACK: Nontender without obvious deformity. No CVA tenderness. Laboratory Laboratory Tests Test 10/30/17 04:46 Blood Urea Nitrogen 24 MG/DL Creatinine 1.22 MG/DL Random Glucose 104 MG/DL Calcium Level 8.0 MG/DL Sodium Level 142 MEQ/L Potassium Level 3.4 MEQ/L Chloride Level 108 MEQ/L Carbon Dioxide Level 25.4 MEQ/L Anion Gap 9 MEQ/L Estimat Glomerular Filtration Rate 61 ML/MIN B-Type Natriuretic Peptide 1017 PG/ML Assessment and Plan Problem List: (1) Acute pulmonary edema ICD Codes: J81.0 - Acute pulmonary edema Status: Acute (2) CAD (coronary artery disease) ICD Codes: I25.10 - Atherosclerotic heart disease of [place] coronary artery without angina pectoris (3) Diastolic CHF, chronic ICD Codes: I50.32 - Chronic diastolic (congestive) heart failure (4) Diastolic CHF, acute on chronic ICD Codes: I50.33 - Acute on chronic diastolic (congestive) heart failure Assessment and Plan 1.) CAD - assymptomatic, continue aspirin 2.) Diastolic chf - increase aldactone 50 mg bid, has rash with lasix, increase lisinopril 20 mg qd, start norvasc 5 mg qd ok to dc from cv standpoint, f/u with me 10/30/17 Problem Qualifiers (1) CAD (coronary artery disease): Qualified Codes: I25.10 - Atherosclerotic heart disease of [place] coronary artery without angina pectoris Anthony Garcia MD Oct 30, 2017 15:17
[2017-10-30] MEDS ORDERED: ATORVASTATIN 20 MG TAB PO ONE (15:30)
== END 2017-10-30 17:06 | disposition home or self-care (01) | DRG 286 ==
LOC: NEPE 03:14 → NEDA 04:48 → HIMN 07:00 → HCPC 10-28 17:28
PROVIDERS: ADMIT Hospitalist; ATTEND Hospitalist
PROC: 5A09357 Assistance with Respiratory Ventilation, Less than 24 Consecutive Hours, Continuous Positive Airway Pressure (ICD-10-PCS; 2017-10-27)
PROC: B2111ZZ Fluoroscopy of Multiple Coronary Arteries using Low Osmolar Contrast (ICD-10-PCS; 2017-10-28)
PROC: B2151ZZ Fluoroscopy of Left Heart using Low Osmolar Contrast (ICD-10-PCS; 2017-10-28)
PROC: 4A023N8 Measurement of Cardiac Sampling and Pressure, Bilateral, Percutaneous Approach (ICD-10-PCS; principal; 2017-10-28 12:30)
DX: I11.0 Hypertensive heart disease with heart failure (principal); J96.90 Respiratory failure, unspecified, unspecified whether with hypoxia or hypercapnia; N17.9 Acute kidney failure, unspecified; E88.09 Other disorders of plasma-protein metabolism, not elsewhere classified; I42.9 Cardiomyopathy, unspecified; I27.20 Pulmonary hypertension, unspecified; E83.51 Hypocalcemia; I25.10 Atherosclerotic heart disease of native coronary artery without angina pectoris; I50.33 Acute on chronic diastolic (congestive) heart failure; R00.0 Tachycardia, unspecified; F12.90 Cannabis use, unspecified, uncomplicated; D72.829 Elevated white blood cell count, unspecified; R73.9 Hyperglycemia, unspecified; L27.0 Generalized skin eruption due to drugs and medicaments taken internally; T37.0X5A Adverse effect of sulfonamides, initial encounter; Z87.442 Personal history of urinary calculi; Z87.891 Personal history of nicotine dependence
CPT/HCPCS: 71045; 80048; 80053; 80061; 82550; 82810; 83735; 83880; 84100; 84484; 85025; 85027; 85379; 85610; 85730; 87070; 87205; 87449; 87641; 93005; 93306; 93460; 94002; 96374; 96375; 99152; C1769; C1893; J0456; J1200; J1644; J1940; J2250; J2270; J2543; J2930; J7050; Q9967

== ENCOUNTER 2018-08-09 04:11 | Inpatient (IN) ==
[2018-08-09] MEDS ORDERED: Midazolam Inj 5 MG/ML 1 ML Vial ONE (04:17)
[2018-08-09] MEDS ORDERED: Nitroglycerin Drip Premix 50 MG/250 ML BOTTLE IV.CONT PRN (04:19)
[2018-08-09] MEDS ORDERED: Midazolam 50 MG/50 ML Inj 50 MG/50 ML BAG IV.CONT ONE (04:25)
[2018-08-09] MEDS: Midazolam 50 MG/50 ML Inj 50 MG/50 ML BAG IV.CONT PRN ×3 (04:32→21:56)
--- NOTE | 2018-08-09 04:37 | XR ---
EXAM DATE: 08/09/2018 4:18 AM EDT AGE/SEX: 57 years / Male INDICATIONS: E-T tube placement. CLINICAL DATA: This is the patient's initial encounter. Patient reports that signs and symptoms have been present for 1 day and indicates a pain score of Nonresponsive. MEDICAL/SURGICAL HISTORY: None. None. COMPARISON: . FINDINGS: A single AP view of the chest demonstrates cardiomegaly and bilateral perihilar edema. Endotracheal t ube with tip 6.5 cm above the navneet. Small right pleural effusion. Osseous structures are intact. CONCLUSION: 1. Bilateral airspace disease. 2. Endotracheal tube 6.5 cm above the navneet. 3. Small right pleural effusion. Electronically signed by: Robbin Gallego MD 08/09/2018 4:36 AM EDT
[2018-08-09 04:43] LABS: Baso # (Auto) 0.1 th/mm3 (0.0-0.2); Baso % (Auto) 0.8 % (0.0-2.0); Eos # (Auto) 0.1 th/mm3 (0.0-0.4); Eos % (Auto) 0.6 % (0.0-4.0); Hematocrit 30.9 % (39.0-51.0); Lymph # (Auto) 1.5 th/mm3 (1.0-4.8); Lymph % (Auto) 9.3 % (9.0-44.0); Mean Corpuscular HGB Conc 32.3 % (32.0-36.0); Mean Corpuscular Hemoglobin 29.3 pg (27.0-34.0); Mean Corpuscular Volume 90.6 fL (80.0-100.0); Mean Platelet Volume 8.9 fL (7.0-11.0); Mono # (Auto) 0.8 th/mm3 (0.0-0.9); Mono % (Auto) 4.9 % (0.0-8.0); Neut % (Auto) 84.4 % (16.0-70.0); Platelet Count 438 th/mm3 (150-450); Red Blood Count 3.41 mil/mm3 (4.50-5.90); Red Cell Distribution Width 13.7 % (11.6-17.2); White Blood Count 16.6 th/mm3 (4.0-11.0)
--- NOTE | 2018-08-09 04:47 | ED ---
HPI General Chief Complaint: Respiratory Symptoms Stated Complaint: Diff breathing Time Seen by Provider: 08/09/18 04:18 Source: EMS Mode of arrival: EMS Limitations: altered mental status (Intubated, sedated) History of Present Illness 57-year-old male came to the emergency room brought in by EMS for acute respiratory distress, intubated at the scene and brought in emergently. As per the identity management consultant patient's girlfriend called 911 and when they arrived they noticed that the patient was tripoding gasping for air. They were told that he has history of congestive heart failure. His blood pressure initially upon their arrival was 236 systolic. Patient was given nitro sublingual spray and Lasix. They put a CPAP on him but patient did not tolerated well. At that point the decision was made to intubate him. Patient was given IV etomidate and Versed followed by intubation. However as per the EMS patient after the intubation started to fight the tube in spite of repeat sedation. When the patient arrived to the ER he was being manually restrained to prevent extubation. Blood pressure upon arrival was 214/124. Related Data Home Medications Medication Instructions Recorded Confirmed carvedilol 25 mg PO BID 08/09/18 08/09/18 doxazosin [Cardura] 4 mg PO DAILY 08/09/18 08/09/18 omeprazole 40 mg PO DAILY 08/09/18 08/09/18 spironolactone [Aldactone] 50 mg PO DAILY 08/09/18 08/09/18 Allergies Allergy/AdvReac Type Severity Reaction Status Date / Time furosemide Allergy Severe Rash Verified 10/30/17 07:10 amlodipine [From Norvasc] Allergy Swelling Verified 08/09/18 07:41 lisinopril Allergy Cough Verified 08/09/18 07:41 losartan Allergy Rash, Verified 08/09/18 07:41 Localized nifedipine [From Procardia] Allergy Swelling Verified 08/09/18 07:41 Review of Systems ROS Unobtainable ROS Unobtainable: unobtainable due to mental status (Intubated, sedated) ROS: all other systems reviewed are negative Respiratory Reports dyspnea PMFSH Medical History Medical History Chronic kidney disease (Acute) Congestive heart failure due to high blood pressure (Acute) Diastolic dysfunction with heart failure (Acute) Surgical History Surgical History S/P cholecystectomy (Acute) Social History Social History Substance History: Unable to Obtain Smoking Status: Unknown if ever smoked How Often Do You Have a Drink Containing Alcohol: Unable to Obtain Recent Travel in [facility] within the Last 8 Weeks: No Recent Out of Country Travel within the Last 8 Weeks: No Immunization History Tetanus Immunization: Unable to Assess Exam Narrative Exam Narrative: GENERAL: Intubated, sedated but combative, distress SKIN: Focused skin assessment warm/dry. HEAD: Atraumatic. Normocephalic. EYES: Pupils equal and round. No scleral icterus. No injection or drainage. ENT: No nasal bleeding or discharge. Mucous membranes pink and moist. NECK: Trachea midline. No JVD. CARDIOVASCULAR: Regular rate and rhythm. No murmur appreciated. RESPIRATORY: Decreased air entry bilaterally with coarse crackles on the left base GASTROINTESTINAL: Abdomen soft, non-tender, nondistended. Hepatic and splenic margins not palpable. Status post surgical incisions from laparoscopy. MUSCULOSKELETAL: No obvious deformities. No clubbing. No cyanosis. Bilateral pedal edema NEUROLOGICAL: GCS of 10, intubated and combative PSYCHIATRIC: Unable to assess Course Initial Documented Vital Signs Respiratory Rate 14 08/09/18 04:12 Pulse Oximetry 89 L 08/09/18 04:12 Last Documented Vital Signs Temperature 100.5 F H 08/12/18 04:00 Pulse Rate 86 08/12/18 04:00 Respiratory Rate 17 08/12/18 04:00 Blood Pressure 155/74 H 08/12/18 04:00 Pulse Oximetry 100 08/12/18 04:00 Critical Care Time Critical Care Time: Yes Total Critical Care Time: 60 Attestation: Aggregate critical care time was 60 minutes. Time to perform other separately billable procedures was not included in the critical care time. My time did not include minutes spent treating any other patients simultaneously or on activities that did not directly contribute to the patient's treatment. The services I provided to this patient were to treat and/or prevent clinically significant deterioration that could result in: Respiratory failure, flash pulmonary edema I provided critical care services requiring my management, as noted below: Chart data review, documentation time, medication orders and management, vital sign assessments/reviewing monitor data, ordering and reviewing lab tests, ordering and interpreting/reviewing x-rays and diagnostic studies, care of the patient and discussion of the patient with the admitting physicians. Medical Decision Making MDM Narrative Medical decision making narrative: 5:14 AM patient upon arrival was given IV rocuronium and IV Versed which made the patient sedated enough and paralyzed. I started him on nitro drip and Versed drip as well. Blood gas was suggestive of respiratory acidosis. Ventilator adjustments were made. X-ray suggestive of bilateral airspace disease probably from pulmonary edema. Patient continues to be hypertensive and I have ordered Nitropaste and added a propofol drip as well. Case was discussed with the table maker Dr. Brooks who has accepted the patient. 5:29 AM patient's was at the bedside who gave the history at this point. She said that patient had his gallbladder taken out 3 weeks ago. This was done at the [facility]. He has been battling with hypertension for past 1 month and medications are not controlling. His blood pressure systolic on average has been running in 120s. His oil burner installer is Dr. Lynch. He is aware of the hypertension. Patient had a cardiac cath done last year by Dr. Garcia which showed minimal blockage and no stenting was needed. EF at that time was 55%. Patient overall was doing good. Up until yesterday when he started complaining of respiratory distress and this morning he woke his up around 3 AM to say that he could not breathe. She called 911. The also says that while he was in [facility] prior to the surgery he was complaining of headache and a head CT was done which showed a calcified meningioma. He was evaluated by neurosurgeon at that time recommended nothing to be done at this point. Medical Screen Exam Complete: Yes Emergency Medical Condition: Yes Lab Data Result diagrams: 08/11/18 07:26 08/11/18 07:26 Lab Results 08/09/18 08/09/18 08/09/18 Range/Units 04:30 04:30 04:30 WBC 16.6 H (4.0-11.0) th/mm3 RBC 3.41 L (4.50-5.90) mil/mm3 Hgb 10.0 L (13.0-17.0) gm/dL Hct 30.9 L (39.0-51.0) % MCV 90.6 (80.0-100.0) fL MCH 29.3 (27.0-34.0) pg MCHC 32.3 (32.0-36.0) % RDW 13.7 (11.6-17.2) % Plt Count 438 (150-450) th/mm3 MPV 8.9 (7.0-11.0) fL Neut % (Auto) 84.4 H (16.0-70.0) % Lymph % (Auto) 9.3 (9.0-44.0) % [place] % (Auto) 4.9 (0.0-8.0) % Eos % (Auto) 0.6 (0.0-4.0) % Baso % (Auto) 0.8 (0.0-2.0) % Neut # (Auto) 14.0 H (1.8-7.7) th/mm3 Lymph # (Auto) 1.5 (1.0-4.8) th/mm3 [place] # (Auto) 0.8 (0.0-0.9) th/mm3 Eos # (Auto) 0.1 (0.0-0.4) th/mm3 Baso # (Auto) 0.1 (0.0-0.2) th/mm3 WBC Differential . Differential Comment Auto diff final PT (9.8-11.6) sec INR Ratio APTT (24.3-30.1) sec Puncture Site Patient Temperature O2 Saturation (90-100) % ABG pH (7.380-7.420) ABG pCO2 (38-42) mmHg ABG pO2 (61-120) mmHg ABG HCO3 (22-26) mmol/L ABG O2 Content (12.0-20.0) Vol % ABG Base Excess (-2-2) mmol/L ABG Methemoglobin (0-2) % Hemoglobin (12.0-16.0) G/DL Carboxyhemoglobin (0-4) % O2 Delivery Device Vent Setting Inspired O2 % Critical Value Sodium 139 (136-145) meq/L Potassium 4.5 (3.5-5.1) meq/L Chloride 108 H (98-107) meq/L Carbon Dioxide 23.5 (21.0-32.0) meq/L Anion Gap 8 (5-15) meq/L BUN 41 H (7-18) mg/dL Creatinine 2.06 H (0.60-1.30) mg/dL Estimated GFR 33 L (>89) mL/min Random Glucose 183 H (74-106) mg/dL Hemoglobin A1c (4.3-6.0) % Calcium 7.7 L (8.5-10.1) mg/dL Phosphorus (2.5-4.9) mg/dL Magnesium (1.5-2.5) mg/dL Iron (65-175) mcg/dL TIBC (250-450) mcg/dL % Saturation (20-50) % Total Bilirubin 0.4 (0.2-1.0) mg/dL AST 27 (15-37) U/L ALT 24 (12-78) U/L Alkaline Phosphatase 83 (45-117) U/L Troponin I 0.03 (0.02-0.05) ng/mL B-Natriuretic Peptide 2262 H (0-100) pg/mL Total Protein 6.0 L (6.4-8.2) g/dL Total Protein (PEP) (6.4-8.2) gm/dL Albumin 2.0 L (3.4-5.0) g/dL Albumin (PEP) (3.50-5.00) gm/dL Albumin/Globulin Ratio (1.39-2.23) Qdgiu-2-Pvqmwggqj (0.11-0.29) gm/dL Mjfhi-3-Fzaakwxtz (0.22-1.00) gm/dL Beta Globulins (0.53-1.03) gm/dL Gamma Globulins (0.50-1.39) gm/dL Urine Color (Yellw/Straw) Urine Clarity (Clear) Urine pH (5.0-8.5) Ur Specific [place] (1.002-1.035) Urine Protein (Neg-Trace) mg/dL Urine Glucose (UA) (Negative) mg/dL Urine Ketones (Negative) mg/dL Urine Occult Blood (Negative) Urine Nitrate (Negative) Urine Bilirubin (Negative) Urine Urobilinogen (Less than 2) mg/dL Ur Leukocyte Esterase (Negative) Urine RBC (0-3) /hpf Urine WBC (0-5) /hpf Urine WBC Clumps (None) Ur Squamous Epith Cells (0-5) /hpf Amorphous Sediment (None) /hpf Urine Bacteria (None) /hpf Hyaline Casts (0-3) /lpf Urine Mucus (Occasional) /lpf Micro UA Comment Ur Microscopic Review Urine Culture Comments Ur Random Creatinine U Random Total Protein (0-11.8) mg/dL Ur Random Sodium meq/L Protein/Creatinin Ratio (0.00-0.14) Nasal Screen MRSA (PCR) (Negative) RUI Screen (Neg) Complement C3 (90-180) mg/dL Complement C4 (10-40) mg/dL Hepatitis A IgM Ab (Nonreactive) Hep Bs Antigen (Nonreactive) Hep B Core IgM Ab (Nonreactive) Hep C IgG Ab (Nonreactive) HIV 1&2 Ab/P24 Ag 4thGn (Nonreactive) 08/09/18 08/09/18 08/09/18 Range/Units 04:40 04:55 05:02 WBC (4.0-11.0) th/mm3 RBC (4.50-5.90) mil/mm3 Hgb (13.0-17.0) gm/dL Hct (39.0-51.0) % MCV (80.0-100.0) fL MCH (27.0-34.0) pg MCHC (32.0-36.0) % RDW (11.6-17.2) % Plt Count (150-450) th/mm3 MPV (7.0-11.0) fL Neut % (Auto) (16.0-70.0) % Lymph % (Auto) (9.0-44.0) % [place] % (Auto) (0.0-8.0) % Eos % (Auto) (0.0-4.0) % Baso % (Auto) (0.0-2.0) % Neut # (Auto) (1.8-7.7) th/mm3 Lymph # (Auto) (1.0-4.8) th/mm3 [place] # (Auto) (0.0-0.9) th/mm3 Eos # (Auto) (0.0-0.4) th/mm3 Baso # (Auto) (0.0-0.2) th/mm3 WBC Differential Differential Comment PT 11.0 (9.8-11.6) sec INR 1.1 Ratio APTT (24.3-30.1) sec Puncture Site Right femoral Patient Temperature 98.6 O2 Saturation 95 (90-100) % ABG pH 7.22 L* (7.380-7.420) ABG pCO2 56 H* (38-42) mmHg ABG pO2 107 (61-120) mmHg ABG HCO3 22 (22-26) mmol/L ABG O2 Content 12.9 (12.0-20.0) Vol % ABG Base Excess -4.4 L (-2-2) mmol/L ABG Methemoglobin 0.6 (0-2) % Hemoglobin 9.5 L (12.0-16.0) G/DL Carboxyhemoglobin 0.9 (0-4) % O2 Delivery Device Ventilator Vent Setting Inspired O2 100 % Critical Value Yes Sodium (136-145) meq/L Potassium (3.5-5.1) meq/L Chloride (98-107) meq/L Carbon Dioxide (21.0-32.0) meq/L Anion Gap (5-15) meq/L BUN (7-18) mg/dL Creatinine (0.60-1.30) mg/dL Estimated GFR (>89) mL/min Random Glucose (74-106) mg/dL Hemoglobin A1c (4.3-6.0) % Calcium (8.5-10.1) mg/dL Phosphorus (2.5-4.9) mg/dL Magnesium (1.5-2.5) mg/dL Iron (65-175) mcg/dL TIBC (250-450) mcg/dL % Saturation (20-50) % Total Bilirubin (0.2-1.0) mg/dL AST (15-37) U/L ALT (12-78) U/L Alkaline Phosphatase (45-117) U/L Troponin I (0.02-0.05) ng/mL B-Natriuretic Peptide (0-100) pg/mL Total Protein (6.4-8.2) g/dL Total Protein (PEP) (6.4-8.2) gm/dL Albumin (3.4-5.0) g/dL Albumin (PEP) (3.50-5.00) gm/dL Albumin/Globulin Ratio (1.39-2.23) Xdadi-3-Nbayigbeq (0.11-0.29) gm/dL Kateu-1-Pvrjjrgey (0.22-1.00) gm/dL Beta Globulins (0.53-1.03) gm/dL Gamma Globulins (0.50-1.39) gm/dL Urine Color Yellow (Yellw/Straw) Urine Clarity Hazy H (Clear) Urine pH 5.0 (5.0-8.5) Ur Specific [place] 1.011 (1.002-1.035) Urine Protein 500 or greater (Neg-Trace) mg/dL Urine Glucose (UA) Negative (Negative) mg/dL Urine Ketones Negative (Negative) mg/dL Urine Occult Blood Moderate H (Negative) Urine Nitrate Negative (Negative) Urine Bilirubin Negative (Negative) Urine Urobilinogen Less than 2 (Less than 2) mg/dL Ur Leukocyte Esterase Negative (Negative) Urine RBC 10 H (0-3) /hpf Urine WBC 10 H (0-5) /hpf Urine WBC Clumps (None) Ur Squamous Epith Cells (0-5) /hpf Amorphous Sediment Rare H (None) /hpf Urine Bacteria Occasional H (None) /hpf Hyaline Casts 8 (0-3) /lpf Urine Mucus Few H (Occasional) /lpf Micro UA Comment Cath-culture ind Ur Microscopic Review Not Reportable Urine Culture Comments Cath-cult indicated Ur Random Creatinine U Random Total Protein (0-11.8) mg/dL Ur Random Sodium meq/L Protein/Creatinin Ratio (0.00-0.14) Nasal Screen MRSA (PCR) (Negative) RUI Screen (Neg) Complement C3 (90-180) mg/dL Complement C4 (10-40) mg/dL Hepatitis A IgM Ab (Nonreactive) Hep Bs Antigen (Nonreactive) Hep B Core IgM Ab (Nonreactive) Hep C IgG Ab (Nonreactive) HIV 1&2 Ab/P24 Ag 4thGn (Nonreactive) 08/09/18 08/09/18 08/09/18 Range/Units 06:20 09:40 12:32 WBC (4.0-11.0) th/mm3 RBC (4.50-5.90) mil/mm3 Hgb (13.0-17.0) gm/dL Hct (39.0-51.0) % MCV (80.0-100.0) fL MCH (27.0-34.0) pg MCHC (32.0-36.0) % RDW (11.6-17.2) % Plt Count (150-450) th/mm3 MPV (7.0-11.0) fL Neut % (Auto) (16.0-70.0) % Lymph % (Auto) (9.0-44.0) % [place] % (Auto) (0.0-8.0) % Eos % (Auto) (0.0-4.0) % Baso % (Auto) (0.0-2.0) % Neut # (Auto) (1.8-7.7) th/mm3 Lymph # (Auto) (1.0-4.8) th/mm3 [place] # (Auto) (0.0-0.9) th/mm3 Eos # (Auto) (0.0-0.4) th/mm3 Baso # (Auto) (0.0-0.2) th/mm3 WBC Differential Differential Comment PT (9.8-11.6) sec INR Ratio APTT (24.3-30.1) sec Puncture Site Patient Temperature O2 Saturation (90-100) % ABG pH (7.380-7.420) ABG pCO2 (38-42) mmHg ABG pO2 (61-120) mmHg ABG HCO3 (22-26) mmol/L ABG O2 Content (12.0-20.0) Vol % ABG Base Excess (-2-2) mmol/L ABG Methemoglobin (0-2) % Hemoglobin (12.0-16.0) G/DL Carboxyhemoglobin (0-4) % O2 Delivery Device Vent Setting Inspired O2 % Critical Value Sodium (136-145) meq/L Potassium (3.5-5.1) meq/L Chloride (98-107) meq/L Carbon Dioxide (21.0-32.0) meq/L Anion Gap (5-15) meq/L BUN (7-18) mg/dL Creatinine (0.60-1.30) mg/dL Estimated GFR (>89) mL/min Random Glucose (74-106) mg/dL Hemoglobin A1c (4.3-6.0) % Calcium (8.5-10.1) mg/dL Phosphorus (2.5-4.9) mg/dL Magnesium (1.5-2.5) mg/dL Iron (65-175) mcg/dL TIBC (250-450) mcg/dL % Saturation (20-50) % Total Bilirubin (0.2-1.0) mg/dL AST (15-37) U/L ALT (12-78) U/L Alkaline Phosphatase (45-117) U/L Troponin I Less than 0.02 L 0.14 H (0.02-0.05) ng/mL B-Natriuretic Peptide (0-100) pg/mL Total Protein (6.4-8.2) g/dL Total Protein (PEP) (6.4-8.2) gm/dL Albumin (3.4-5.0) g/dL Albumin (PEP) (3.50-5.00) gm/dL Albumin/Globulin Ratio (1.39-2.23) Tyvuh-2-Zjsbkvnel (0.11-0.29) gm/dL Bwfcf-4-Ypeawctxo (0.22-1.00) gm/dL Beta Globulins (0.53-1.03) gm/dL Gamma Globulins (0.50-1.39) gm/dL Urine Color (Yellw/Straw) Urine Clarity (Clear) Urine pH (5.0-8.5) Ur Specific [place] (1.002-1.035) Urine Protein (Neg-Trace) mg/dL Urine Glucose (UA) (Negative) mg/dL Urine Ketones (Negative) mg/dL Urine Occult Blood (Negative) Urine Nitrate (Negative) Urine Bilirubin (Negative) Urine Urobilinogen (Less than 2) mg/dL Ur Leukocyte Esterase (Negative) Urine RBC (0-3) /hpf Urine WBC (0-5) /hpf Urine WBC Clumps (None) Ur Squamous Epith Cells (0-5) /hpf Amorphous Sediment (None) /hpf Urine Bacteria (None) /hpf Hyaline Casts (0-3) /lpf Urine Mucus (Occasional) /lpf Micro UA Comment Ur Microscopic Review Urine Culture Comments Ur Random Creatinine U Random Total Protein (0-11.8) mg/dL Ur Random Sodium meq/L Protein/Creatinin Ratio (0.00-0.14) Nasal Screen MRSA (PCR) Not detected (Negative) RUI Screen (Neg) Complement C3 (90-180) mg/dL Complement C4 (10-40) mg/dL Hepatitis A IgM Ab (Nonreactive) Hep Bs Antigen (Nonreactive) Hep B Core IgM Ab (Nonreactive) Hep C IgG Ab (Nonreactive) HIV 1&2 Ab/P24 Ag 4thGn (Nonreactive) 08/10/18 08/10/18 08/10/18 Range/Units 03:30 03:30 03:30 WBC 7.6 D (4.0-11.0) th/mm3 RBC 2.64 L (4.50-5.90) mil/mm3 Hgb 8.1 L (13.0-17.0) gm/dL Hct 23.3 L (39.0-51.0) % MCV 88.2 (80.0-100.0) fL MCH 30.9 (27.0-34.0) pg MCHC 35.0 (32.0-36.0) % RDW 13.5 (11.6-17.2) % Plt Count 253 D (150-450) th/mm3 MPV 8.8 (7.0-11.0) fL Neut % (Auto) 74.8 H (16.0-70.0) % Lymph % (Auto) 15.2 (9.0-44.0) % [place] % (Auto) 6.7 (0.0-8.0) % Eos % (Auto) 2.5 (0.0-4.0) % Baso % (Auto) 0.8 (0.0-2.0) % Neut # (Auto) 5.7 (1.8-7.7) th/mm3 Lymph # (Auto) 1.2 (1.0-4.8) th/mm3 [place] # (Auto) 0.5 (0.0-0.9) th/mm3 Eos # (Auto) 0.2 (0.0-0.4) th/mm3 Baso # (Auto) 0.1 (0.0-0.2) th/mm3 WBC Differential . Differential Comment Auto diff final PT 10.3 (9.8-11.6) sec INR 1.0 Ratio APTT 25.9 (24.3-30.1) sec Puncture Site Patient Temperature O2 Saturation (90-100) % ABG pH (7.380-7.420) ABG pCO2 (38-42) mmHg ABG pO2 (61-120) mmHg ABG HCO3 (22-26) mmol/L ABG O2 Content (12.0-20.0) Vol % ABG Base Excess (-2-2) mmol/L ABG Methemoglobin (0-2) % Hemoglobin (12.0-16.0) G/DL Carboxyhemoglobin (0-4) % O2 Delivery Device Vent Setting Inspired O2 % Critical Value Sodium 139 (136-145) meq/L Potassium 4.5 (3.5-5.1) meq/L Chloride 107 (98-107) meq/L Carbon Dioxide 23.6 (21.0-32.0) meq/L Anion Gap 8 (5-15) meq/L BUN 49 H (7-18) mg/dL Creatinine 2.70 H (0.60-1.30) mg/dL Estimated GFR 24 L (>89) mL/min Random Glucose 93 (74-106) mg/dL Hemoglobin A1c (4.3-6.0) % Calcium 7.7 L (8.5-10.1) mg/dL Phosphorus 6.9 H (2.5-4.9) mg/dL Magnesium 2.2 (1.5-2.5) mg/dL Iron (65-175) mcg/dL TIBC (250-450) mcg/dL % Saturation (20-50) % Total Bilirubin 0.3 (0.2-1.0) mg/dL AST 17 (15-37) U/L ALT 20 (12-78) U/L Alkaline Phosphatase 65 (45-117) U/L Troponin I (0.02-0.05) ng/mL B-Natriuretic Peptide (0-100) pg/mL Total Protein 5.2 L D (6.4-8.2) g/dL Total Protein (PEP) (6.4-8.2) gm/dL Albumin 1.6 L (3.4-5.0) g/dL Albumin (PEP) (3.50-5.00) gm/dL Albumin/Globulin Ratio (1.39-2.23) Zswih-5-Ctvmbpnsy (0.11-0.29) gm/dL Fawkm-3-Fbihclfxz (0.22-1.00) gm/dL Beta Globulins (0.53-1.03) gm/dL Gamma Globulins (0.50-1.39) gm/dL Urine Color (Yellw/Straw) Urine Clarity (Clear) Urine pH (5.0-8.5) Ur Specific [place] (1.002-1.035) Urine Protein (Neg-Trace) mg/dL Urine Glucose (UA) (Negative) mg/dL Urine Ketones (Negative) mg/dL Urine Occult Blood (Negative) Urine Nitrate (Negative) Urine Bilirubin (Negative) Urine Urobilinogen (Less than 2) mg/dL Ur Leukocyte Esterase (Negative) Urine RBC (0-3) /hpf Urine WBC (0-5) /hpf Urine WBC Clumps (None) Ur Squamous Epith Cells (0-5) /hpf Amorphous Sediment (None) /hpf Urine Bacteria (None) /hpf Hyaline Casts (0-3) /lpf Urine Mucus (Occasional) /lpf Micro UA Comment Ur Microscopic Review Urine Culture Comments Ur Random Creatinine U Random Total Protein (0-11.8) mg/dL Ur Random Sodium meq/L Protein/Creatinin Ratio (0.00-0.14) Nasal Screen MRSA (PCR) (Negative) RUI Screen (Neg) Complement C3 (90-180) mg/dL Complement C4 (10-40) mg/dL Hepatitis A IgM Ab (Nonreactive) Hep Bs Antigen (Nonreactive) Hep B Core IgM Ab (Nonreactive) Hep C IgG Ab (Nonreactive) HIV 1&2 Ab/P24 Ag 4thGn (Nonreactive) 08/10/18 08/10/18 08/10/18 Range/Units 12:30 12:30 12:30 WBC (4.0-11.0) th/mm3 RBC (4.50-5.90) mil/mm3 Hgb (13.0-17.0) gm/dL Hct (39.0-51.0) % MCV (80.0-100.0) fL MCH (27.0-34.0) pg MCHC (32.0-36.0) % RDW (11.6-17.2) % Plt Count (150-450) th/mm3 MPV (7.0-11.0) fL Neut % (Auto) (16.0-70.0) % Lymph % (Auto) (9.0-44.0) % [place] % (Auto) (0.0-8.0) % Eos % (Auto) (0.0-4.0) % Baso % (Auto) (0.0-2.0) % Neut # (Auto) (1.8-7.7) th/mm3 Lymph # (Auto) (1.0-4.8) th/mm3 [place] # (Auto) (0.0-0.9) th/mm3 Eos # (Auto) (0.0-0.4) th/mm3 Baso # (Auto) (0.0-0.2) th/mm3 WBC Differential Differential Comment PT (9.8-11.6) sec INR Ratio APTT (24.3-30.1) sec Puncture Site Patient Temperature O2 Saturation (90-100) % ABG pH (7.380-7.420) ABG pCO2 (38-42) mmHg ABG pO2 (61-120) mmHg ABG HCO3 (22-26) mmol/L ABG O2 Content (12.0-20.0) Vol % ABG Base Excess (-2-2) mmol/L ABG Methemoglobin (0-2) % Hemoglobin (12.0-16.0) G/DL Carboxyhemoglobin (0-4) % O2 Delivery Device Vent Setting Inspired O2 % Critical Value Sodium (136-145) meq/L Potassium (3.5-5.1) meq/L Chloride (98-107) meq/L Carbon Dioxide (21.0-32.0) meq/L Anion Gap (5-15) meq/L BUN (7-18) mg/dL Creatinine (0.60-1.30) mg/dL Estimated GFR (>89) mL/min Random Glucose (74-106) mg/dL Hemoglobin A1c (4.3-6.0) % Calcium (8.5-10.1) mg/dL Phosphorus (2.5-4.9) mg/dL Magnesium (1.5-2.5) mg/dL Iron (65-175) mcg/dL TIBC (250-450) mcg/dL % Saturation (20-50) % Total Bilirubin (0.2-1.0) mg/dL AST (15-37) U/L ALT (12-78) U/L Alkaline Phosphatase (45-117) U/L Troponin I (0.02-0.05) ng/mL B-Natriuretic Peptide (0-100) pg/mL Total Protein (6.4-8.2) g/dL Total Protein (PEP) (6.4-8.2) gm/dL Albumin (3.4-5.0) g/dL Albumin (PEP) (3.50-5.00) gm/dL Albumin/Globulin Ratio (1.39-2.23) Bztta-4-Qsxtkappy (0.11-0.29) gm/dL Vqrqz-0-Fqcdnoqxi (0.22-1.00) gm/dL Beta Globulins (0.53-1.03) gm/dL Gamma Globulins (0.50-1.39) gm/dL Urine Color (Yellw/Straw) Urine Clarity (Clear) Urine pH (5.0-8.5) Ur Specific [place] (1.002-1.035) Urine Protein (Neg-Trace) mg/dL Urine Glucose (UA) (Negative) mg/dL Urine Ketones (Negative) mg/dL Urine Occult Blood (Negative) Urine Nitrate (Negative) Urine Bilirubin (Negative) Urine Urobilinogen (Less than 2) mg/dL Ur Leukocyte Esterase (Negative) Urine RBC (0-3) /hpf Urine WBC (0-5) /hpf Urine WBC Clumps (None) Ur Squamous Epith Cells (0-5) /hpf Amorphous Sediment (None) /hpf Urine Bacteria (None) /hpf Hyaline Casts (0-3) /lpf Urine Mucus (Occasional) /lpf Micro UA Comment Ur Microscopic Review Urine Culture Comments Ur Random Creatinine Cancelled 72 U Random Total Protein 60.2 H (0-11.8) mg/dL Ur Random Sodium 46 Cancelled meq/L Protein/Creatinin Ratio 0.84 H (0.00-0.14) Nasal Screen MRSA (PCR) (Negative) RUI Screen (Neg) Complement C3 (90-180) mg/dL Complement C4 (10-40) mg/dL Hepatitis A IgM Ab (Nonreactive) Hep Bs Antigen (Nonreactive) Hep B Core IgM Ab (Nonreactive) Hep C IgG Ab (Nonreactive) HIV 1&2 Ab/P24 Ag 4thGn (Nonreactive) 08/10/18 08/10/18 08/10/18 Range/Units 12:30 12:45 12:45 WBC (4.0-11.0) th/mm3 RBC (4.50-5.90) mil/mm3 Hgb 8.8 L (13.0-17.0) gm/dL Hct 26.6 L (39.0-51.0) % MCV (80.0-100.0) fL MCH (27.0-34.0) pg MCHC (32.0-36.0) % RDW (11.6-17.2) % Plt Count (150-450) th/mm3 MPV (7.0-11.0) fL Neut % (Auto) (16.0-70.0) % Lymph % (Auto) (9.0-44.0) % [place] % (Auto) (0.0-8.0) % Eos % (Auto) (0.0-4.0) % Baso % (Auto) (0.0-2.0) % Neut # (Auto) (1.8-7.7) th/mm3 Lymph # (Auto) (1.0-4.8) th/mm3 [place] # (Auto) (0.0-0.9) th/mm3 Eos # (Auto) (0.0-0.4) th/mm3 Baso # (Auto) (0.0-0.2) th/mm3 WBC Differential Differential Comment PT (9.8-11.6) sec INR Ratio APTT (24.3-30.1) sec Puncture Site Patient Temperature O2 Saturation (90-100) % ABG pH (7.380-7.420) ABG pCO2 (38-42) mmHg ABG pO2 (61-120) mmHg ABG HCO3 (22-26) mmol/L ABG O2 Content (12.0-20.0) Vol % ABG Base Excess (-2-2) mmol/L ABG Methemoglobin (0-2) % Hemoglobin (12.0-16.0) G/DL Carboxyhemoglobin (0-4) % O2 Delivery Device Vent Setting Inspired O2 % Critical Value Sodium (136-145) meq/L Potassium (3.5-5.1) meq/L Chloride (98-107) meq/L Carbon Dioxide (21.0-32.0) meq/L Anion Gap (5-15) meq/L BUN (7-18) mg/dL Creatinine (0.60-1.30) mg/dL Estimated GFR (>89) mL/min Random Glucose (74-106) mg/dL Hemoglobin A1c (4.3-6.0) % Calcium (8.5-10.1) mg/dL Phosphorus (2.5-4.9) mg/dL Magnesium (1.5-2.5) mg/dL Iron (65-175) mcg/dL TIBC (250-450) mcg/dL % Saturation (20-50) % Total Bilirubin (0.2-1.0) mg/dL AST (15-37) U/L ALT (12-78) U/L Alkaline Phosphatase (45-117) U/L Troponin I (0.02-0.05) ng/mL B-Natriuretic Peptide (0-100) pg/mL Total Protein (6.4-8.2) g/dL Total Protein (PEP) (6.4-8.2) gm/dL Albumin (3.4-5.0) g/dL Albumin (PEP) (3.50-5.00) gm/dL Albumin/Globulin Ratio (1.39-2.23) Omnea-7-Uaqbvtujn (0.11-0.29) gm/dL Juqlz-8-Cobmpmijt (0.22-1.00) gm/dL Beta Globulins (0.53-1.03) gm/dL Gamma Globulins (0.50-1.39) gm/dL Urine Color Yellow (Yellw/Straw) Urine Clarity Hazy H (Clear) Urine pH 5.0 (5.0-8.5) Ur Specific [place] 1.009 (1.002-1.035) Urine Protein 100 H (Neg-Trace) mg/dL Urine Glucose (UA) Negative (Negative) mg/dL Urine Ketones Negative (Negative) mg/dL Urine Occult Blood Small H (Negative) Urine Nitrate Negative (Negative) Urine Bilirubin Negative (Negative) Urine Urobilinogen Less than 2 (Less than 2) mg/dL Ur Leukocyte Esterase Small H (Negative) Urine RBC 7 H (0-3) /hpf Urine WBC 28 H (0-5) /hpf Urine WBC Clumps Occasional H (None) Ur Squamous Epith Cells 3 (0-5) /hpf Amorphous Sediment Few H (None) /hpf Urine Bacteria Few H (None) /hpf Hyaline Casts 34 (0-3) /lpf Urine Mucus Few H (Occasional) /lpf Micro UA Comment Culture indicated Ur Microscopic Review Not Reportable Urine Culture Comments Culture indicated Ur Random Creatinine U Random Total Protein (0-11.8) mg/dL Ur Random Sodium meq/L Protein/Creatinin Ratio (0.00-0.14) Nasal Screen MRSA (PCR) (Negative) RUI Screen Neg (Neg) Complement C3 (90-180) mg/dL Complement C4 (10-40) mg/dL Hepatitis A IgM Ab (Nonreactive) Hep Bs Antigen (Nonreactive) Hep B Core IgM Ab (Nonreactive) Hep C IgG Ab (Nonreactive) HIV 1&2 Ab/P24 Ag 4thGn (Nonreactive) 08/10/18 08/10/18 08/10/18 Range/Units 12:45 12:45 12:45 WBC (4.0-11.0) th/mm3 RBC (4.50-5.90) mil/mm3 Hgb (13.0-17.0) gm/dL Hct (39.0-51.0) % MCV (80.0-100.0) fL MCH (27.0-34.0) pg MCHC (32.0-36.0) % RDW (11.6-17.2) % Plt Count (150-450) th/mm3 MPV (7.0-11.0) fL Neut % (Auto) (16.0-70.0) % Lymph % (Auto) (9.0-44.0) % [place] % (Auto) (0.0-8.0) % Eos % (Auto) (0.0-4.0) % Baso % (Auto) (0.0-2.0) % Neut # (Auto) (1.8-7.7) th/mm3 Lymph # (Auto) (1.0-4.8) th/mm3 [place] # (Auto) (0.0-0.9) th/mm3 Eos # (Auto) (0.0-0.4) th/mm3 Baso # (Auto) (0.0-0.2) th/mm3 WBC Differential Differential Comment PT (9.8-11.6) sec INR Ratio APTT (24.3-30.1) sec Puncture Site Patient Temperature O2 Saturation (90-100) % ABG pH (7.380-7.420) ABG pCO2 (38-42) mmHg ABG pO2 (61-120) mmHg ABG HCO3 (22-26) mmol/L ABG O2 Content (12.0-20.0) Vol % ABG Base Excess (-2-2) mmol/L ABG Methemoglobin (0-2) % Hemoglobin (12.0-16.0) G/DL Carboxyhemoglobin (0-4) % O2 Delivery Device Vent Setting Inspired O2 % Critical Value Sodium (136-145) meq/L Potassium (3.5-5.1) meq/L Chloride (98-107) meq/L Carbon Dioxide (21.0-32.0) meq/L Anion Gap (5-15) meq/L BUN (7-18) mg/dL Creatinine (0.60-1.30) mg/dL Estimated GFR (>89) mL/min Random Glucose (74-106) mg/dL Hemoglobin A1c 5.2 (4.3-6.0) % Calcium (8.5-10.1) mg/dL Phosphorus (2.5-4.9) mg/dL Magnesium (1.5-2.5) mg/dL Iron 23 L (65-175) mcg/dL TIBC 217 L (250-450) mcg/dL % Saturation 10.6 L (20-50) % Total Bilirubin (0.2-1.0) mg/dL AST (15-37) U/L ALT (12-78) U/L Alkaline Phosphatase (45-117) U/L Troponin I (0.02-0.05) ng/mL B-Natriuretic Peptide (0-100) pg/mL Total Protein (6.4-8.2) g/dL Total Protein (PEP) (6.4-8.2) gm/dL Albumin (3.4-5.0) g/dL Albumin (PEP) (3.50-5.00) gm/dL Albumin/Globulin Ratio (1.39-2.23) Tbhhx-3-Vgxtzflkm (0.11-0.29) gm/dL Ngwzv-9-Zvblwraig (0.22-1.00) gm/dL Beta Globulins (0.53-1.03) gm/dL Gamma Globulins (0.50-1.39) gm/dL Urine Color (Yellw/Straw) Urine Clarity (Clear) Urine pH (5.0-8.5) Ur Specific [place] (1.002-1.035) Urine Protein (Neg-Trace) mg/dL Urine Glucose (UA) (Negative) mg/dL Urine Ketones (Negative) mg/dL Urine Occult Blood (Negative) Urine Nitrate (Negative) Urine Bilirubin (Negative) Urine Urobilinogen (Less than 2) mg/dL Ur Leukocyte Esterase (Negative) Urine RBC (0-3) /hpf Urine WBC (0-5) /hpf Urine WBC Clumps (None) Ur Squamous Epith Cells (0-5) /hpf Amorphous Sediment (None) /hpf Urine Bacteria (None) /hpf Hyaline Casts (0-3) /lpf Urine Mucus (Occasional) /lpf Micro UA Comment Ur Microscopic Review Urine Culture Comments Ur Random Creatinine U Random Total Protein (0-11.8) mg/dL Ur Random Sodium meq/L Protein/Creatinin Ratio (0.00-0.14) Nasal Screen MRSA (PCR) (Negative) RUI Screen (Neg) Complement C3 125 (90-180) mg/dL Complement C4 6 L (10-40) mg/dL Hepatitis A IgM Ab (Nonreactive) Hep Bs Antigen (Nonreactive) Hep B Core IgM Ab (Nonreactive) Hep C IgG Ab (Nonreactive) HIV 1&2 Ab/P24 Ag 4thGn Nonreactive (Nonreactive) 08/10/18 08/11/18 08/11/18 Range/Units 12:45 07:26 07:26 WBC 7.4 (4.0-11.0) th/mm3 RBC 3.22 L (4.50-5.90) mil/mm3 Hgb 9.7 L (13.0-17.0) gm/dL Hct 29.1 L (39.0-51.0) % MCV 90.3 (80.0-100.0) fL MCH 30.1 (27.0-34.0) pg MCHC 33.4 (32.0-36.0) % RDW 13.4 (11.6-17.2) % Plt Count 322 (150-450) th/mm3 MPV 9.2 (7.0-11.0) fL Neut % (Auto) (16.0-70.0) % Lymph % (Auto) (9.0-44.0) % [place] % (Auto) (0.0-8.0) % Eos % (Auto) (0.0-4.0) % Baso % (Auto) (0.0-2.0) % Neut # (Auto) (1.8-7.7) th/mm3 Lymph # (Auto) (1.0-4.8) th/mm3 [place] # (Auto) (0.0-0.9) th/mm3 Eos # (Auto) (0.0-0.4) th/mm3 Baso # (Auto) (0.0-0.2) th/mm3 WBC Differential Differential Comment PT (9.8-11.6) sec INR Ratio APTT (24.3-30.1) sec Puncture Site Patient Temperature O2 Saturation (90-100) % ABG pH (7.380-7.420) ABG pCO2 (38-42) mmHg ABG pO2 (61-120) mmHg ABG HCO3 (22-26) mmol/L ABG O2 Content (12.0-20.0) Vol % ABG Base Excess (-2-2) mmol/L ABG Methemoglobin (0-2) % Hemoglobin (12.0-16.0) G/DL Carboxyhemoglobin (0-4) % O2 Delivery Device Vent Setting Inspired O2 % Critical Value Sodium 141 (136-145) meq/L Potassium 4.1 (3.5-5.1) meq/L Chloride 107 (98-107) meq/L Carbon Dioxide 24.4 (21.0-32.0) meq/L Anion Gap 10 (5-15) meq/L BUN 50 H (7-18) mg/dL Creatinine 2.41 H (0.60-1.30) mg/dL Estimated GFR 28 L (>89) mL/min Random Glucose 104 (74-106) mg/dL Hemoglobin A1c (4.3-6.0) % Calcium 7.9 L (8.5-10.1) mg/dL Phosphorus 6.0 H (2.5-4.9) mg/dL Magnesium 2.4 (1.5-2.5) mg/dL Iron (65-175) mcg/dL TIBC (250-450) mcg/dL % Saturation (20-50) % Total Bilirubin 0.2 (0.2-1.0) mg/dL AST 23 (15-37) U/L ALT 22 (12-78) U/L Alkaline Phosphatase 85 (45-117) U/L Troponin I (0.02-0.05) ng/mL B-Natriuretic Peptide (0-100) pg/mL Total Protein 5.8 L D (6.4-8.2) g/dL Total Protein (PEP) 5.8 L (6.4-8.2) gm/dL Albumin 1.8 L (3.4-5.0) g/dL Albumin (PEP) 2.09 L (3.50-5.00) gm/dL Albumin/Globulin Ratio 0.56 L (1.39-2.23) Ugumn-9-Wzuudywom 0.40 H (0.11-0.29) gm/dL Zvspo-7-Zcpejwjnr 1.27 H (0.22-1.00) gm/dL Beta Globulins 0.93 (0.53-1.03) gm/dL Gamma Globulins 1.11 (0.50-1.39) gm/dL Urine Color (Yellw/Straw) Urine Clarity (Clear) Urine pH (5.0-8.5) Ur Specific [place] (1.002-1.035) Urine Protein (Neg-Trace) mg/dL Urine Glucose (UA) (Negative) mg/dL Urine Ketones (Negative) mg/dL Urine Occult Blood (Negative) Urine Nitrate (Negative) Urine Bilirubin (Negative) Urine Urobilinogen (Less than 2) mg/dL Ur Leukocyte Esterase (Negative) Urine RBC (0-3) /hpf Urine WBC (0-5) /hpf Urine WBC Clumps (None) Ur Squamous Epith Cells (0-5) /hpf Amorphous Sediment (None) /hpf Urine Bacteria (None) /hpf Hyaline Casts (0-3) /lpf Urine Mucus (Occasional) /lpf Micro UA Comment Ur Microscopic Review Urine Culture Comments Ur Random Creatinine U Random Total Protein (0-11.8) mg/dL Ur Random Sodium meq/L Protein/Creatinin Ratio (0.00-0.14) Nasal Screen MRSA (PCR) (Negative) RUI Screen (Neg) Complement C3 (90-180) mg/dL Complement C4 (10-40) mg/dL Hepatitis A IgM Ab Nonreactive (Nonreactive) Hep Bs Antigen Nonreactive (Nonreactive) Hep B Core IgM Ab Nonreactive (Nonreactive) Hep C IgG Ab Reactive H (Nonreactive) HIV 1&2 Ab/P24 Ag 4thGn (Nonreactive) Imaging Data Radiologist's impression: Chest X-Ray 08/09/18 04:18 CONCLUSION: 1. Bilateral airspace disease. 2. Endotracheal tube 6.5 cm above the navneet. 3. Small right pleural effusion. Abdomen/Bladder Ultrasound 08/10/18 00:00 CONCLUSION: 1. Echogenic kidneys consistent with medical renal disease. 2. No sonographic evidence for obstructive uropathy. 3. Trace ascites. 4. Small left pleural effusion. Chest X-Ray 08/10/18 10:00 CONCLUSION: Interval improvement in apparent pulmonary edema. ECG Data Attestation: I personally reviewed and interpreted this ECG as follows: Interpretation: Twelve-lead EKG was reviewed by me. Normal sinus rhythm, PVCs, PT waves versus LVH strain, normal axis, tachycardia. Heart rate of 131 bpm. Discharge Plan Discharge Disposition Patient Disposition: 30 Still Patient Physicians Team ED Provider: Maricarmen Rodirguez Primary Care Provider: UNKNOWN, Attending Provider: Sylvester Brooks Other Providers: Chaitanya Isaacs ; Ruddy Sarabia V ; Boyd Chadwick Status ED Status: Left Department Discharge Information Discharge Date/Time: 08/09/18 06:19
[2018-08-09 05:02] LABS: Alanine Aminotransferase 24 U/L (12-78); Anion Gap 8 meq/L (5-15); Aspartate Aminotransferase 27 U/L (15-37); Blood Urea Nitrogen 41 mg/dL (7-18); Calcium 7.7 mg/dL (8.5-10.1); Carbon Dioxide 23.5 meq/L (21.0-32.0); Chloride 108 meq/L (98-107); Glomerular Filtration Rate 33 mL/min (>89); Glucose,Random 183 mg/dL (74-106); Potassium 4.5 meq/L (3.5-5.1); Sodium 139 meq/L (136-145)
[2018-08-09 05:02] LABS: ABG Base Excess -4.4 mmol/L (-2-2); ABG PCO2 56 mmHg (38-42); ABG PO2 107 mmHg (61-120)
[2018-08-09 05:06] LABS: Alkaline Phosphatase 83 U/L (45-117); Troponin I 0.03 ng/mL (0.02-0.05)
[2018-08-09 05:10] LABS: INR 1.1 Ratio
[2018-08-09] MEDS: Propofol 1000 mg/100 ml Inj 1,000 MG/100 ML BOTTLE IV.CONT PRN ×5 (05:12→23:34)
[2018-08-09 05:14] LABS: Amorphous Sediment,Urine Rare /hpf; Bacteria,Urine Occasional /hpf; Bilirubin,Urine Negative (Negative); Clarity,Urine Hazy (Clear); Color,Urine Yellow (Yellw/Straw); Glucose,Urine (UA) Negative (Negative); Hyaline Casts,Urine 8 /lpf (0-3); Leukocyte Esterase,Urine Negative (Negative); Mucus,Urine Few /lpf (Occasional); Nitrite,Urine Negative (Negative); Specific Gravity,Urine 1.011 (1.002-1.035)
[2018-08-09] MEDS ORDERED: Bisacodyl 10 MG Supp RECTAL PRN (05:24)
[2018-08-09] MEDS ORDERED: Morphine Inj 4 MG/ML Vial IV.PUSH PRN (05:24)
--- NOTE | 2018-08-09 05:34 | P.HPCC ---
History of Present Illness Primary Care Physician: UNKNOWN History of Present Illness: 57-year-old male with history of diastolic heart failure and preserved ejection fraction of 55% on last echo in October 2017 came to the emergency room brought in by EMS for acute respiratory distress, intubated at the scene. As per the desktop operator patient's girlfriend called 911 and when they arrived they noticed that the patient was tripoding gasping for air. His blood pressure initially upon their arrival was 236 systolic. Patient was given nitro sublingual spray and Lasix. They put a CPAP on him but patient did not tolerated well. At that point the decision was made to intubate him. Patient was given IV etomidate and Versed followed by intubation. Per patient's family at the bedside he had a cholecystectomy done a week ago and since then his blood pressure was poorly controlled as well as worsening of her peripheral edema. The patient has a history of allergic reaction to Lasix with a generalized body rash. Inpatient Certification: I certify that the inpatient services were ordered in accordance with Medicare regulations governing the order. This includes certification that hospital inpatient services are reasonable and necessary and in the case of services not specified as inpatient-only under 42 CFR 419.22(n), that they are appropriately provided as inpatient services in accordance to with the 2-midnight benchmark under 43 CFR 412.3(e) Estimated Total Length of Stay (Days): 5 Plans for Post Hospital Care: Not yet determined Review of Systems unobtainable due to endotracheal tube PMFSH - History History Provided By: Reexaminer / EMT - Medical History Medical History: Medical History (Last Updated 08/09/18 @ 06:01 by Sylvester Brooks MD) Chronic kidney disease Congestive heart failure due to high blood pressure Diastolic dysfunction with heart failure - Surgical History Surgical History: Surgical History (Last Updated 08/09/18 @ 06:01 by Sylvester Brooks MD) S/P cholecystectomy - Tobacco History Smoking Status: Unknown if ever smoked - Alcohol History How Often Do You Have a Drink Containing Alcohol: Unable to Obtain - Substance Use History Substance History: Unable to Obtain - Travel History Recent Travel in the [place] Within the Last 8 Weeks: No Recent Travel Out of the Country Within the Last 8 Weeks: No - Immunization History Tetanus Immunization: Unable to Assess Medications and Allergies Active Medications: Active Medications Midazolam HCl (Versed Inj) 50 mg in 50 mls @ 2 mls/hr IV.CONT TITRATE PRN; Protocol PRN Reason: Per Protocol Last Admin: 08/09/18 04:32 Dose: 2 mg/hr, 2 mls/hr Nitroglycerin/Dextrose (Nitroglycerin Drip Premix) 50 mg in 250 mls @ 0 mls/hr IV.CONT TITRATE PRN; Protocol PRN Reason: Per Protocol Last Titration: 08/09/18 05:02 Dose: 15 mcg/min, 4.5 mls/hr Propofol (Diprivan 1000 Mg/100 Ml Inj) 1,000 mg in 100 mls @ 2.517 mls/hr IV.CONT TITRATE PRN; Protocol PRN Reason: Per Protocol Last Admin: 08/09/18 05:33 Dose: 20 mcg/kg/min, 10.07 mls/hr Allergies Allergy/AdvReac Type Severity Reaction Status Date / Time furosemide Allergy Severe Rash Verified 10/30/17 07:10 No Known Allergies Allergy Unknown Uncoded 10/27/17 05:06 Home Medications Medication Instructions Recorded Confirmed Type carvedilol 25 mg PO BID 08/09/18 08/09/18 History doxazosin [Cardura] 4 mg PO DAILY 08/09/18 08/09/18 History omeprazole 40 mg PO DAILY 08/09/18 08/09/18 History spironolactone [Aldactone] 50 mg PO DAILY 08/09/18 08/09/18 History Results - Labs CBC & Chem 7: 08/09/18 04:30 08/09/18 04:30 Labs: Short CBC 08/09/18 Range/Units 04:30 WBC 16.6 H (4.0-11.0) th/mm3 Hgb 10.0 L (13.0-17.0) gm/dL Hct 30.9 L (39.0-51.0) % Plt Count 438 (150-450) th/mm3 BMP 08/09/18 04:30 Sodium 139 Potassium 4.5 Chloride 108 H Carbon Dioxide 23.5 BUN 41 H Creatinine 2.06 H Calcium 7.7 L Cardiac Enzymes 08/09/18 Range/Units 04:30 Troponin I 0.03 (0.02-0.05) ng/mL Liver Function 08/09/18 Range/Units 04:30 Total Bilirubin 0.4 (0.2-1.0) mg/dL AST 27 (15-37) U/L ALT 24 (12-78) U/L Alkaline Phosphatase 83 (45-117) U/L Albumin 2.0 L (3.4-5.0) g/dL Urine 08/09/18 Range/Units 05:02 Urine Color Yellow (Yellw/Straw) Urine Clarity Hazy H (Clear) Urine pH 5.0 (5.0-8.5) Ur Specific [place] 1.011 (1.002-1.035) Urine Protein 500 or greater (Neg-Trace) mg/dL Urine Glucose (UA) Negative (Negative) mg/dL - Imaging Impressions Chest X-Ray 08/09/18 04:18 CONCLUSION: 1. Bilateral airspace disease. 2. Endotracheal tube 6.5 cm above the navneet. 3. Small right pleural effusion. Exam Vital signs: Vital Signs 08/09/18 04:12 08/09/18 04:16 08/09/18 04:24 Temperature 98.4 F Pulse Rate 132 H 127 H Respiratory Rate 14 13 Blood Pressure 195/100 H Pulse Oximetry 89 L 95 08/09/18 04:49 08/09/18 05:10 Temperature Pulse Rate 134 H 128 H Respiratory Rate 14 16 Blood Pressure 214/124 H 206/121 H Pulse Oximetry 98 98 Intake & Output 08/08/18 08/08/18 08/09/18 06:59 18:59 06:59 Weight 83.915 kg - Constitutional moderate distress - Routine HEENT Exam Head: Present: normocephalic, atraumatic Eye: Present: PERRL, normal accommodation ENT: Present: mucous membranes moist - Routine Neck Exam Absent: JVD, carotid bruit - Routine Respiratory Exam Present: patient mechanically ventilated, rhonchi, crackles. Absent: stridor, wheezes - Routine Cardiovascular Exam Present: RRR, S1, S2. Absent: gallop, rubs - Routine Abdominal Exam Present: soft, normoactive bowel sounds. Absent: tenderness - Routine Extremities Exam Present: edema. Absent: cyanosis, clubbing - Routine Skin Exam Present: intact. Absent: cyanosis, erythema - Routine Neurological Exam Present: altered mental status, moving all extremities Septic Shock Reassessment Septic shock perfusion: reassessment completed Caprini VTE Risk Assessment Caprini VTE Risk Assessment: Moderate/High Risk (score >= 2) Caprini Risk Assessment Model: Point Value = 1 Point Value = 2 Point Value = 3 Point Value = 5 Age 41-60 Minor surgery BMI > 25 kg/m2 Swollen legs Varicose veins or History of unexplained or recurrent spontaneous Oral contraceptives or hormone replacement Sepsis (< 1 month) Serious lung disease, including pneumonia (< 1 month) Abnormal pulmonary function Acute myocardial infarction Congestive heart failure (< 1 month) History of inflammatory bowel disease Medical patient at bed rest Age 61-74 Arthroscopic surgery Major open surgery (> 45 min) Laparoscopic surgery (> 45 min) Malignancy Confined to bed (> 72 hours) Immobilizing plaster cast Central venous access Age >= 75 History of VTE Family history of VTE Factor V Leiden Prothrombin [id number] Lupus anticoagulant Anticardiolipin antibodies Elevated serum homocysteine Heparin-induced thrombocytopenia Other congenital or acquired thrombophilia Stroke (< 1 month) Elective arthroplasty Hip, pelvis, or leg fracture Acute spinal cord injury (< 1 month) Prophylaxis Regimen: Total Risk Factor Score Risk Level Prophylaxis Regimen 0-1 Low Early ambulation 2 Moderate Order ONE of the following: *Sequential Compression Device (SCD) *Heparin 5000 units SQ BID 3-4 Higher Order ONE of the following medications: *Heparin 5000 units SQ TID *Enoxaparin/Lovenox 40 mg SQ daily (WT < 150 kg, CrCl > 30 mL/min) *Enoxaparin/Lovenox 30 mg SQ daily (WT < 150 kg, CrCl > 10-29 mL/min) *Enoxaparin/Lovenox 30 mg SQ BID (WT < 150 kg, CrCl > 30 mL/min) AND/OR *Sequential Compression Device (SCD) 5 or more Highest Order ONE of the following medications: *Heparin 5000 units SQ TID (Preferred with Epidurals) *Enoxaparin/Lovenox 40 mg SQ daily (WT < 150 kg, CrCl > 30 mL/min) *Enoxaparin/Lovenox 30 mg SQ daily (WT < 150 kg, CrCl > 10-29 mL/min) *Enoxaparin/Lovenox 30 mg SQ BID (WT < 150 kg, CrCl > 30 mL/min) AND *Sequential Compression Device (SCD) Assessment and Plan - Assessment and Plan Plan: Respiratory failure -Pulmonary edema -Vent bundle -DuoNeb's as needed -Aggressive diuresis -SBT daily Acute on chronic congestive heart failure Diastolic heart failure -Preserved EF 55% on echo in October 2017 -Repeat 2D echo -Series of troponins and EKGs to rule out ACS -Blood pressure control -Aggressive diuresis with Bumex -Cardiology evaluation Hypertension -Continue home meds Cardura and carvedilol -Spironolactone -Bumex -Cleviprex rather than Cardene (due to volume infusion the patient with severe fluid overload ) drip as needed to keep SBP less than 140 Chronic kidney disease -Strict I's and O's -Diuresis -Monitor creatinine and electrolytes levels -Nephrology consultation if worsening DVT GI prophylaxis -Teds SCDs -Subcu heparin -Pepcid 35 minutes of critical care
[2018-08-09] MEDS ORDERED: diphenhydrAMINE HCl 12.5 MG/5 ML Elixir UDC NG/OG PRN (06:11)
[2018-08-09] MEDS: Heparin - SQ 10,000 UNITS/ML Vial SQ SCH ×3 (06:26→21:07)
[2018-08-09] MEDS: Spironolactone 50 MG Tablet PO SCH (08:19)
[2018-08-09] MEDS: Chlorhexidine 0.12% Oral Kit 15 ML UDC OROPHARYNG SCH ×2 (08:20→20:17)
[2018-08-09] MEDS: Senna/Docusate Sodium 8.6/50 MG Tablet PO SCH ×2 (08:20→20:18)
[2018-08-09] MEDS: Carvedilol 12.5 MG Tablet PO SCH ×2 (08:20→20:17)
[2018-08-09] MEDS ORDERED: Famotidine PF Inj 20 MG/2 ML Vial IV.PUSH SCH (09:00)
[2018-08-09] MEDS: Doxazosin 4 MG Tablet PO SCH (10:29)
[2018-08-09] MEDS: Oral Hygiene Kit OROPHARYNG SCH ×3 (12:28→23:33)
--- NOTE | 2018-08-09 15:32 | ECHRPT ---
Indication: HEART FAILURE CONCLUSIONS The left ventricular systolic function is normal with an estimated ejection fraction in the range of 55-60%. Normal left ventricular size and wall thickness. No regional wall motion abnormalities are present. There is mild tricuspid valve regurgitation. The estimated pulmonary arterial pressure is 43.2 mmHg. BP: / HR: Rhythm: Sinus MEASUREMENTS (Male / Female) Normal Values Technical Quality:Good 2D ECHO LV Diastolic Diameter PLAX 4.9 cm 4.2 - 5.9 / 3.9 - 5.3 cm LV Systolic Diameter PLAX 3.7 cm IVS Diastolic Thickness 1.2 cm 0.6 - 1.0 / 0.6 - 0.9 cm LVPW Diastolic Thickness 1.2 cm 0.6 - 1.0 / 0.6 - 0.9 cm LV Relative Wall Thickness 0.5 RV Internal Dim ED PLAX 2.3 cm LVOT Diameter 1.8 cm LA Systolic Diameter LX 2.8 cm 3.0 - 4.0 / 2.7 - 3.8 cm LV Ejection Fraction MOD 4C 54.9 % LV Ejection Fraction 4C AL 56.6 % M-MODE Aortic Root Diameter MM 2.7 cm LA Systolic Diameter MM 3.4 cm LA Ao Ratio MM 1.3 AV Cusp Separation MM 2.1 cm DOPPLER AV Peak Velocity 102.0 cm/s AV Peak Gradient 4.2 mmHg LVOT Peak Velocity 84.4 cm/s LVOT Peak Gradient 2.8 mmHg AV Area Cont Eq pk 2.1 cm MV Area PHT 3.6 cm Mitral E Point Velocity 57.3 cm/s Mitral A Point Velocity 46.9 cm/s Mitral E to A Ratio 1.2 TR Peak Velocity 288.0 cm/s TR Peak Gradient 33.2 mmHg Right Atrial Pressure 10.0 mmHg Pulmonary Artery Systolic Pressu 43.2 mmHg Right Ventricular Systolic Press 43.2 mmHg PV Peak Velocity 69.2 cm/s PV Peak Gradient 1.9 mmHg FINDINGS LEFT VENTRICLE The left ventricular systolic function is normal with an estimated ejection fraction in the range of 55-60%. Normal left ventricular size. Wall thickness is normal. No regional wall motion abnormalities are present. RIGHT VENTRICLE Normal right ventricular size and systolic function. LEFT ATRIUM The left atrial size is normal. RIGHT ATRIUM The right atrial size is normal. ATRIAL SEPTUM Normal atrial septal thickness without atrial level shunting by limited color doppler interrogation. AORTA The aortic root and proximal ascending aorta are normal in size on limited imaging. MITRAL VALVE Structurally normal mitral valve. No mitral valve stenosis or regurgitation. AORTIC VALVE Trileaflet aortic valve. Aortic valve sclerosis is present. TRICUSPID VALVE Structurally normal tricuspid valve. There is mild tricuspid valve regurgitation. The estimated pulmonary arterial pressure is 43.2 mmHg. PULMONARY VALVE Trivial pulmonary valve regurgitation. VESSELS The inferior vena cava is normal in size. PERICARDIUM No pericardial effusion. Darrel Sarabia MD (Electronically Signed) Final Date:09 August 2018 15:31
--- NOTE | 2018-08-09 19:34 | ECG ---
Date Performed: 08/09/2018 Time Performed: 11:50:03 PTAGE: 57 years EKG: Sinus rhythm NORMAL ECG PREVIOUS TRACING : 08/09/2018 06.49 Since the previous tracing, no significant change noted DOCTOR: Chaitanya Isaacs Interpretating Date/Time 08/09/2018 19:33:10
--- NOTE | 2018-08-09 19:45 | ECG ---
Date Performed: 08/09/2018 Time Performed: 06:49:20 PTAGE: 57 years EKG: Sinus tachycardia. Normal ECG except for rate Since the PREVIOUS TRACING , no significant change noted DOCTOR: Chaitanya Isaacs Interpretating Date/Time 08/09/2018 19:44:36
--- NOTE | 2018-08-09 19:58 | ECG ---
Date Performed: 08/09/2018 Time Performed: 04:20:57 PTAGE: 57 years EKG: SINUS TACHYCARDIA WITH SHORT PA INTERVAL WITH OCCASIONAL VENTRICULAR PREMATURE COMPLEXES NO NSPECIFIC T-WAVE ABNORMALITY ABNORMAL RHYTHM ECG PREVIOUS TRACING : 10/27/2017 10.17 Compared to previous tracing, rate faster DOCTOR: Chaitanya Isaacs Interpretating Date/Time 08/09/2018 19:58:13
--- NOTE | 2018-08-09 20:00 | MB ---
cc: Chaitanya Isaacs MD DATE: 08/09/2018 HISTORY OF PRESENT ILLNESS: Mr. Yañez is a 57-year-old white male, a patient of Dr. Cook, with history of diastolic heart failure, chronic kidney disease, and left ventricular diastolic dysfunction. He had a cardiac catheterization in October of this year by Dr. Garcia which showed mild coronary artery disease and left ventricular diastolic dysfunction. The patient developed acute respiratory distress, was intubated and brought to the hospital. He was severely hypertensive on arrival. He recently underwent cholecystectomy and has poorly controlled blood pressure and worsening lower extremity edema. PAST MEDICAL HISTORY: Positive for chronic kidney disease, diastolic congestive heart failure, left ventricular diastolic dysfunction, recent cholecystectomy. MEDICATIONS AT HOME: Include: 1. Spironolactone. 2. Omeprazole. 3. Doxazosin. 4. Carvedilol. ALLERGIES: FUROSEMIDE, AMLODIPINE, LISINOPRIL, AND NIFEDIPINE. SOCIAL HISTORY: The patient does not smoke. The patient does not drink alcohol. FAMILY HISTORY: Negative for heart disease. REVIEW OF SYSTEMS: Otherwise negative. PHYSICAL EXAMINATION: VITAL SIGNS: Blood pressure 114/76, pulse 75 and regular. HEENT: Patient is intubated and sedated. 2+ carotid strokes bruits. LUNGS: Clear. HEART: Regular with no murmur or gallop. ABDOMEN: Soft. No bruits. EXTREMITIES: 1+ edema with 2+ pulses. NEUROLOGIC: Grossly nonfocal. The patient is sedated, but wakes up with stimuli. EKG was reviewed and showed a normal sinus rhythm, normal intervals, no ST changes. LABORATORY DATA: Hemoglobin 10.0, potassium 4.5, creatinine 2.1. Troponin 0.03 and less than 0.02. BNP 2262, AST 27, ALT 24. DIAGNOSES: 1. Acute congestive heart failure, diastolic dysfunction. 2. Severe hypertension. 3. Hypertensive heart disease. 4. Respiratory failure. 5. Chronic kidney disease. 6. Recent cholecystectomy. ASSESSMENT AND PLAN: Mr. Yañez suffers from left ventricular diastolic dysfunction, likely secondary to hypertensive heart disease. His blood pressure has been recently poorly controlled. I recommend to titrate medications for blood pressure control. I also recommend nephrology evaluation. He will be weaned from the ventilator and extubated as tolerated. I will follow him for cardiology during his hospitalization. He will see Dr. Cook, his primary fabric finisher, in his office after discharge. MD SHIRA Mueller/emelyn/corazon , 01:19 PM , 01:29 PM CALEB
[2018-08-09] MEDS: Famotidine PF Inj 20 MG/2 ML Vial IV.PUSH SCH (20:18)
[2018-08-10] MEDS ORDERED: Chlorhexidine Gluconate 2% 1 Pack (2 Cloths) TOPICAL PRN (04:00)
[2018-08-10 04:20] LABS: Baso # (Auto) 0.1 th/mm3 (0.0-0.2); Baso % (Auto) 0.8 % (0.0-2.0); Eos # (Auto) 0.2 th/mm3 (0.0-0.4); Eos % (Auto) 2.5 % (0.0-4.0); Hematocrit 23.3 % (39.0-51.0); Hemoglobin 8.1 gm/dL (13.0-17.0); Lymph # (Auto) 1.2 th/mm3 (1.0-4.8); Lymph % (Auto) 15.2 % (9.0-44.0); Mean Corpuscular Hemoglobin 30.9 pg (27.0-34.0); Mean Corpuscular Volume 88.2 fL (80.0-100.0); Mean Platelet Volume 8.8 fL (7.0-11.0); Mono # (Auto) 0.5 th/mm3 (0.0-0.9); Mono % (Auto) 6.7 % (0.0-8.0); Neut # (Auto) 5.7 th/mm3 (1.8-7.7); Neut % (Auto) 74.8 % (16.0-70.0); Platelet Count 253 th/mm3 (150-450); Red Blood Count 2.64 mil/mm3 (4.50-5.90); Red Cell Distribution Width 13.5 % (11.6-17.2); White Blood Count 7.6 th/mm3 (4.0-11.0)
[2018-08-10 04:33] LABS: Activated Partial Thrombo Time 25.9 sec (24.3-30.1); Prothrombin Time 10.3 sec (9.8-11.6)
[2018-08-10 04:47] LABS: Alanine Aminotransferase 20 U/L (12-78); Albumin 1.6 g/dL (3.4-5.0); Anion Gap 8 meq/L (5-15); Aspartate Aminotransferase 17 U/L (15-37); Blood Urea Nitrogen 49 mg/dL (7-18); Calcium 7.7 mg/dL (8.5-10.1); Carbon Dioxide 23.6 meq/L (21.0-32.0); Chloride 107 meq/L (98-107); Glomerular Filtration Rate 24 mL/min (>89); Glucose,Random 93 mg/dL (74-106); Magnesium 2.2 mg/dL (1.5-2.5); Phosphorus 6.9 mg/dL (2.5-4.9); Potassium 4.5 meq/L (3.5-5.1); Sodium 139 meq/L (136-145)
[2018-08-10 04:49] LABS: Alkaline Phosphatase 65 U/L (45-117); Total Protein 5.2 g/dL (6.4-8.2)
[2018-08-10] MEDS: Chlorhexidine Gluconate 2% 1 Pack (2 Cloths) TOPICAL SCH (05:13)
[2018-08-10] MEDS: Oral Hygiene Kit OROPHARYNG SCH ×4 (05:14→23:23)
[2018-08-10] MEDS: Heparin - SQ 10,000 UNITS/ML Vial SQ SCH ×3 (05:14→21:06)
[2018-08-10] MEDS: Propofol 1000 mg/100 ml Inj 1,000 MG/100 ML BOTTLE IV.CONT PRN ×5 (05:15→21:05)
[2018-08-10] MEDS: Famotidine PF Inj 20 MG/2 ML Vial IV.PUSH SCH ×2 (08:59→20:51)
[2018-08-10] MEDS: Chlorhexidine 0.12% Oral Kit 15 ML UDC OROPHARYNG SCH ×2 (08:59→20:51)
[2018-08-10] MEDS: Doxazosin 4 MG Tablet PO SCH (08:59)
[2018-08-10] MEDS: Senna/Docusate Sodium 8.6/50 MG Tablet PO SCH ×2 (08:59→20:52)
[2018-08-10] MEDS: Carvedilol 12.5 MG Tablet PO SCH ×2 (08:59→20:51)
[2018-08-10] MEDS: Spironolactone 50 MG Tablet PO SCH (09:00)
--- NOTE | 2018-08-10 09:46 | P.PNCC ---
Subjective Subjective Remarks/Hospital Course: 08/09: 57-year-old male with history of diastolic heart failure and preserved ejection fraction of 55% on last echo in October 2017 came to the emergency room brought in by EMS for acute respiratory distress, intubated at the scene. As per the hedis specialist patient's girlfriend called 911 and when they arrived they noticed that the patient was tripoding gasping for air. His blood pressure initially upon their arrival was 236 systolic. Patient was given nitro sublingual spray and Lasix. They put a CPAP on him but patient did not tolerated well. At that point the decision was made to intubate him. Patient was given IV etomidate and Versed followed by intubation. Per patient's family at the bedside he had a cholecystectomy done a week ago and since then his blood pressure was poorly controlled as well as worsening of her peripheral edema. The patient has a history of allergic reaction to Lasix with a generalized body rash. 08/10: Remains sedated, orally intubated on mechanical ventilation. Not much urine output with Bumex. Creatinine increasing. Objective Vital Signs / I&O: Vital Signs 08/09/18 09:45 08/09/18 10:00 08/09/18 10:15 Temperature Pulse Rate 80 79 77 Respiratory Rate 16 16 16 Blood Pressure 109/68 100/66 120/72 Pulse Oximetry 98 98 99 08/09/18 10:30 08/09/18 10:45 08/09/18 10:59 Temperature Pulse Rate 77 78 75 Respiratory Rate 16 16 16 Blood Pressure 118/72 108/63 Pulse Oximetry 99 99 98 08/09/18 11:00 08/09/18 11:15 08/09/18 11:21 Temperature Pulse Rate 75 76 Respiratory Rate 17 16 16 Blood Pressure 114/76 105/71 Pulse Oximetry 98 98 98 08/09/18 11:30 08/09/18 11:45 08/09/18 12:00 Temperature 98.3 F Pulse Rate 77 78 76 Respiratory Rate 16 16 16 Blood Pressure 100/65 87/65 L 90/58 L Pulse Oximetry 98 98 98 08/09/18 12:15 08/09/18 12:30 08/09/18 12:45 Temperature Pulse Rate 75 74 74 Respiratory Rate 16 16 16 Blood Pressure 91/58 L 90/57 L 88/57 L Pulse Oximetry 98 98 98 08/09/18 13:00 08/09/18 13:01 08/09/18 13:15 Temperature Pulse Rate 73 70 69 Respiratory Rate 16 16 17 Blood Pressure 88/55 L 107/61 131/68 Pulse Oximetry 98 100 100 08/09/18 13:30 08/09/18 13:45 08/09/18 14:00 Temperature Pulse Rate 70 69 72 Respiratory Rate 16 16 16 Blood Pressure 129/76 128/74 113/68 Pulse Oximetry 100 100 99 08/09/18 14:15 08/09/18 14:30 08/09/18 14:45 Temperature Pulse Rate 70 72 71 Respiratory Rate 16 16 16 Blood Pressure 111/67 111/69 112/69 Pulse Oximetry 99 98 99 08/09/18 15:00 08/09/18 15:15 08/09/18 15:30 Temperature Pulse Rate 72 72 73 Respiratory Rate 16 16 16 Blood Pressure 116/70 107/66 113/71 Pulse Oximetry 98 98 98 08/09/18 15:45 08/09/18 16:00 08/09/18 16:15 Temperature Pulse Rate 70 72 72 Respiratory Rate 16 16 16 Blood Pressure 122/77 119/76 113/71 Pulse Oximetry 99 98 99 08/09/18 16:30 08/09/18 16:45 08/09/18 17:00 Temperature Pulse Rate 72 72 71 Respiratory Rate 16 16 16 Blood Pressure 108/71 108/69 109/69 Pulse Oximetry 98 99 98 08/09/18 17:15 08/09/18 17:30 08/09/18 17:45 Temperature Pulse Rate 71 72 71 Respiratory Rate 16 16 16 Blood Pressure 113/70 113/71 128/78 Pulse Oximetry 98 97 98 08/09/18 18:00 08/09/18 19:00 08/09/18 19:54 Temperature 97.9 F Pulse Rate 72 71 Respiratory Rate 16 16 16 Blood Pressure 123/77 131/88 Pulse Oximetry 98 100 98 08/09/18 20:00 08/09/18 22:00 08/09/18 23:39 Temperature 97.9 F Pulse Rate 75 77 Respiratory Rate 16 16 Blood Pressure 140/82 Pulse Oximetry 99 97 08/10/18 00:00 08/10/18 02:00 08/10/18 03:36 Temperature 98 F Pulse Rate 74 71 Respiratory Rate 16 16 Blood Pressure 110/70 Pulse Oximetry 100 99 08/10/18 04:00 08/10/18 06:00 Temperature 98.1 F Pulse Rate 70 72 Respiratory Rate 16 Blood Pressure 130/78 Pulse Oximetry 99 Intake & Output 08/09/18 08/10/18 08/10/18 18:59 06:59 18:59 Intake Total 459 / 459 270 / 270 Output Total 500 / 500 400 / 400 Balance -41 / -41 -130 / -130 Intake: IV 350 / 350 150 / 150 Versed Inj 50 mg In 50 ml @ 2 50 / 50 50 / 50 MG/HR 2 mls/hr IV.CONT TITRATE PRN Rx#:[id number] Diprivan 1000 mg/100 ml Inj 1, 300 / 300 100 / 100 000 mg In 100 ml @ 5 MCG/KG/MIN 2.517 mls/hr IV.CONT TITRATE PRN Rx#:[id number] Oral 0 / 0 0 / 0 Tube Feeding 109 / 109 120 / 120 Output: Urine Amount (Catheter) 500 / 500 400 / 400 Indwelling Urethral Catheter 500 / 500 400 / 400 Other: Date of Last Bowel Movement 08/08/18 08/10/18 # Bowel Movements 0 1 Result Diagrams: 08/10/18 03:30 08/10/18 03:30 Objective Remarks: HEENT/ Neuro: Sedated, orally intubated, No Pallor, no icterus, tongue/ mucosa moist Neck: No JVD Chest/Pulm: on mech vent, good air entry bilaterally, scattered rhonchi, no wheezing or crackles CVS: S1-S2 regular, no murmur GI/abdomen: soft, nontender, bowel sounds sluggish Extremities: warm bilaterally, trace edema Assessment and Plan - Assessment and Plan Plan: Acute Respiratory failure -Pulmonary edema -Vent bundle -DuoNeb's as needed -Aggressive diuresis -SBT daily Acute on chronic congestive heart failure Diastolic heart failure -Preserved EF 55% on echo in October 2017 -Repeat 2D echo -Troponins negative. -Blood pressure control -Aggressive diuresis with Bumex -Cardiology evaluation Hypertension -Continue home meds Cardura and carvedilol -Spironolactone -Bumex -Cleviprex rather than Cardene (due to volume infusion the patient with severe fluid overload ) drip as needed to keep SBP less than 140 Chronic kidney disease -Strict I's and O's -Diuresis -Monitor creatinine and electrolytes levels -Nephrology consultated for worsening creatinine DVT GI prophylaxis -Teds SCDs -Subcu heparin -Pepcid 35 minutes of critical care
--- NOTE | 2018-08-10 10:54 | XR ---
EXAM DATE: 08/10/2018 10:00 AM EDT AGE/SEX: 57 years / Male INDICATIONS: Respiratory distress. CLINICAL DATA: This is the patient's subsequent encounter. Patient reports that signs and symptoms h ave been present for 2 days and indicates a pain score of Nonresponsive. MEDICAL/SURGICAL HISTORY: Non-responsive. Non-responsive. COMPARISON: [facility], CHEST 1V SINGLE AP, 08/09/2018. . FINDINGS: 2 AP erect views of the chest were obtained and again demonstrate an endotracheal tube in place with the tip at the level thoracic inlet. There is been placement of a nasogastric tube which is seen cour sing through the esophagus into the stomach. There is been interval improvement in the bilateral alve olar opacities with milder residual remaining. The heart size is within normal limits. Hazy opacity r emains at the lung bases. The bony thorax remains intact in appearance with overlying electrocardiogr am leads and oxygen tubing. CONCLUSION: Interval improvement in apparent pulmonary edema. Electronically signed by: Carlos Andrew MD 08/10/2018 10:52 AM EDT
--- NOTE | 2018-08-10 11:42 | P.DIET ---
Nutritional Evaluation Type of nutrition evaluation: initial Nutrition consult regarding: Tube Feeding Objective - Diagnosis Respiratory Failure, Pulmonary Edema - Objective Lesage body weight: 73 kg Body Weight Used for Calculations: IBW Energy Needs - Lower Range (kCal/kg): 25 Energy Needs - Upper Range (kCal/kg): 30 Lower Limit kCal/kg (kCals): 1,825 Upper Limit kCal/kg (kCals): 2,190 Lower Limit Protein Factor (Grams per Kg): 0.8 Upper Limit Protein Factor (Grams per Kg): 1.2 Lower Protein Needs (Protein): 68 Upper Protein Needs (Protein): 88 Dietitian Reviewed in Medical Record: Curent medications, Intake & Output, Labs , Medical history, Tube feeding Diet Order: TF only Objective Comments: PMH includes CKD, CHF, L ventricular diastolic dysfunction Labs include: Cr 2.7, estGFR 24, Phosphorus 6.9 Meds include: Bumex, propofol UOP: 900mls Assessment Assessment: Pt at nutritional risk r/t current clinical status and need for a TF for nutrition support. Pt intubated/sedated on propofol. Nutritional needs as assessed above. Noted pt's worsening kidney function, furniture polisher consult pending. Current TF Jevity 1.5 with goal rate 55ml/hr will provide 1980kcals, 84gms protein, 1003mls free water. This will give pt 1gm protein/KgBW. Propofol at current rate of 20.14 provides an additional 532kcals/24 hrs. Will monitor TF tolerance and provide additional recs relative to clinical course. Recommendations: TF Jevity 1.5 with goal rate 55ml/hr Provide additional recs relative to clinical course.
--- NOTE | 2018-08-10 11:52 | P.PNCA ---
Subjective Interval history: Patient intubated and sedated at this time. Appears to be in no acute distress. at bedside. Medications and Allergies Allergies Allergy/AdvReac Type Severity Reaction Status Date / Time furosemide Allergy Severe Rash Verified 10/30/17 07:10 amlodipine [From Norvasc] Allergy Swelling Verified 08/09/18 07:41 lisinopril Allergy Cough Verified 08/09/18 07:41 losartan Allergy Rash, Verified 08/09/18 07:41 Localized nifedipine [From Procardia] Allergy Swelling Verified 08/09/18 07:41 Home Medications Medication Instructions Recorded Confirmed Type carvedilol 25 mg PO BID 08/09/18 08/09/18 History doxazosin [Cardura] 4 mg PO DAILY 08/09/18 08/09/18 History omeprazole 40 mg PO DAILY 08/09/18 08/09/18 History spironolactone [Aldactone] 50 mg PO DAILY 08/09/18 08/09/18 History Active Medications: Active Medications Acetaminophen (Tylenol) 650 mg PO Q6H PRN PRN Reason: PAIN 1-10 AND/OR FEVER >101F Al Hydroxide/Mg Hydroxide (Milk Of [employer]) 30 ml PO Q12H PRN PRN Reason: Mild Constipation Albuterol (Duoneb Neb (Prn)) 1 ampul NEB Q2HR NEB PRN PRN Reason: WHEEZING Bisacodyl (Dulcolax Supp) 10 mg RECTAL DAILY PRN PRN Reason: SEVERE CONSITIPATION Bumetanide (Bumex Inj) 1 mg IV.PUSH Q6HR [facility] Last Admin: 08/10/18 10:07 Dose: 1 mg Carvedilol (Coreg) 25 mg PO BID [facility] Last Admin: 08/10/18 08:59 Dose: 25 mg Chlorhexidine Gluconate (Peridex 0.12% Oral Kit) 15 ml OROPHARYNG BID@0800, 2000 [facility] Last Admin: 08/10/18 08:59 Dose: 15 ml Chlorhexidine Gluconate (Chlorhexidine 2% Cloth) 3 pack TOPICAL DAILY@0400 [facility] Stop: 08/15/18 03:59 Last Admin: 08/10/18 05:13 Dose: 3 pack Chlorhexidine Gluconate (Chlorhexidine 2% Cloth) 3 pack TOPICAL DAILY@0400 PRN PRN Reason: Extra cloth needed Stop: 08/15/18 03:59 Diphenhydramine HCl (Benadryl Liq) 25 mg NG/OG Q4H PRN PRN Reason: RASH Doxazosin Mesylate (Cardura) 4 mg PO DAILY [facility] Last Admin: 08/10/18 08:59 Dose: 4 mg Famotidine (Pepcid Pf Inj) 10 mg IV.PUSH Q12HR [facility] Last Admin: 08/10/18 08:59 Dose: 10 mg Heparin Sodium (Porcine) (Heparin Inj) 5,000 units SQ Q8H [facility] Last Admin: 08/10/18 05:14 Dose: 5,000 units Midazolam HCl (Versed Inj) 50 mg in 50 mls @ 2 mls/hr IV.CONT TITRATE PRN; Protocol PRN Reason: Per Protocol Last Admin: 08/09/18 21:56 Dose: 5 mg/hr, 5 mls/hr Nitroglycerin/Dextrose (Nitroglycerin Drip Premix) 50 mg in 250 mls @ 0 mls/hr IV.CONT TITRATE PRN; Protocol PRN Reason: Per Protocol Last Titration: 08/09/18 14:00 Dose: 0 mcg/min, 0 mls/hr Propofol (Diprivan 1000 Mg/100 Ml Inj) 1,000 mg in 100 mls @ 2.517 mls/hr IV.CONT TITRATE PRN; Protocol PRN Reason: Per Protocol Last Admin: 08/10/18 10:01 Dose: 40 mcg/kg/min, 20.14 mls/hr Clevidipine (Cleviprex Inj) 25 mg in 50 mls @ 2 mls/hr IV.CONT TITRATE PRN; Protocol PRN Reason: Per protocol Lactulose (Lactulose Liq) 30 ml PO DAILY PRN PRN Reason: SEVERE CONSITIPATION Midazolam HCl (Versed Inj) 2 mg IV.PUSH Q1H PRN PRN Reason: SEDATION Miscellaneous Medication () 1 each OROPHARYNG 0000,0400,1200,1600 [facility] Last Admin: 08/10/18 05:14 Dose: 1 each Morphine Sulfate (Morphine Inj) 2 mg IV.PUSH Q2H PRN PRN Reason: PAIN SCALE 6 TO 10 Ondansetron HCl (Zofran Inj) 4 mg IV.PUSH Q6H PRN PRN Reason: NAUSEA OR VOMITING Senna/Docusate Sodium (Erika-Colace) 1 tab PO BID [facility] Last Admin: 08/10/18 08:59 Dose: 1 tab Sennosides (Senokot) 17.2 mg PO Q12H PRN PRN Reason: Moderate Constipation Sodium Chloride (Ns Flush) 2 ml IV.FLUSH BID [facility] Last Admin: 08/10/18 08:59 Dose: 2 ml Sodium Chloride (Ns Flush) 2 ml IV.FLUSH PRN PRN PRN Reason: FLUSH AFTER USING IV ACCESS Spironolactone (Aldactone) 50 mg PO DAILY [facility] Last Admin: 08/10/18 09:00 Dose: Not Given Physical Exam Vital signs: Vital Signs 08/09/18 11:45 08/09/18 12:00 08/09/18 12:15 Temperature 98.3 F Pulse Rate 78 76 75 Respiratory Rate 16 16 16 Blood Pressure 87/65 L 90/58 L 91/58 L Pulse Oximetry 98 98 98 08/09/18 12:30 08/09/18 12:45 08/09/18 13:00 Temperature Pulse Rate 74 74 73 Respiratory Rate 16 16 16 Blood Pressure 90/57 L 88/57 L 88/55 L Pulse Oximetry 98 98 98 08/09/18 13:01 08/09/18 13:15 08/09/18 13:30 Temperature Pulse Rate 70 69 70 Respiratory Rate 16 17 16 Blood Pressure 107/61 131/68 129/76 Pulse Oximetry 100 100 100 08/09/18 13:45 08/09/18 14:00 08/09/18 14:15 Temperature Pulse Rate 69 72 70 Respiratory Rate 16 16 16 Blood Pressure 128/74 113/68 111/67 Pulse Oximetry 100 99 99 08/09/18 14:30 08/09/18 14:45 08/09/18 15:00 Temperature Pulse Rate 72 71 72 Respiratory Rate 16 16 16 Blood Pressure 111/69 112/69 116/70 Pulse Oximetry 98 99 98 08/09/18 15:15 08/09/18 15:30 08/09/18 15:45 Temperature Pulse Rate 72 73 70 Respiratory Rate 16 16 16 Blood Pressure 107/66 113/71 122/77 Pulse Oximetry 98 98 99 08/09/18 16:00 08/09/18 16:15 08/09/18 16:30 Temperature Pulse Rate 72 72 72 Respiratory Rate 16 16 16 Blood Pressure 119/76 113/71 108/71 Pulse Oximetry 98 99 98 08/09/18 16:45 08/09/18 17:00 08/09/18 17:15 Temperature Pulse Rate 72 71 71 Respiratory Rate 16 16 16 Blood Pressure 108/69 109/69 113/70 Pulse Oximetry 99 98 98 08/09/18 17:30 08/09/18 17:45 08/09/18 18:00 Temperature Pulse Rate 72 71 72 Respiratory Rate 16 16 16 Blood Pressure 113/71 128/78 123/77 Pulse Oximetry 97 98 98 08/09/18 19:00 08/09/18 19:54 08/09/18 20:00 Temperature 97.9 F 97.9 F Pulse Rate 71 75 Respiratory Rate 16 16 16 Blood Pressure 131/88 140/82 Pulse Oximetry 100 98 99 08/09/18 22:00 08/09/18 23:39 08/10/18 00:00 Temperature 98 F Pulse Rate 77 74 Respiratory Rate 16 16 Blood Pressure 110/70 Pulse Oximetry 97 100 08/10/18 02:00 08/10/18 03:36 08/10/18 04:00 Temperature 98.1 F Pulse Rate 71 70 Respiratory Rate 16 16 Blood Pressure 130/78 Pulse Oximetry 99 99 08/10/18 04:15 08/10/18 04:30 08/10/18 04:45 Temperature Pulse Rate 70 70 69 Respiratory Rate 16 16 16 Blood Pressure 124/75 130/79 139/85 Pulse Oximetry 99 99 99 08/10/18 05:00 08/10/18 05:15 08/10/18 05:30 Temperature Pulse Rate 68 69 70 Respiratory Rate 16 16 16 Blood Pressure 136/82 126/76 145/84 H Pulse Oximetry 99 99 99 08/10/18 05:45 08/10/18 06:00 08/10/18 06:15 Temperature Pulse Rate 68 69 71 Respiratory Rate 16 24 16 Blood Pressure 148/83 H 142/81 H 144/90 H Pulse Oximetry 99 100 100 08/10/18 06:30 08/10/18 06:45 08/10/18 07:00 Temperature Pulse Rate 72 74 74 Respiratory Rate 16 16 16 Blood Pressure 150/95 H 156/95 H 136/82 Pulse Oximetry 99 100 98 08/10/18 07:15 08/10/18 07:30 08/10/18 07:45 Temperature Pulse Rate 74 73 75 Respiratory Rate 16 16 16 Blood Pressure 126/76 122/78 124/79 Pulse Oximetry 98 99 98 08/10/18 08:00 08/10/18 08:15 08/10/18 08:30 Temperature 98.2 F Pulse Rate 74 75 76 Respiratory Rate 16 16 16 Blood Pressure 129/77 127/78 126/78 Pulse Oximetry 99 98 98 08/10/18 08:45 08/10/18 09:00 08/10/18 09:15 Temperature Pulse Rate 75 73 71 Respiratory Rate 16 16 17 Blood Pressure 131/85 138/85 134/83 Pulse Oximetry 98 99 100 08/10/18 09:30 08/10/18 09:40 08/10/18 09:45 Temperature Pulse Rate 74 74 Respiratory Rate 16 16 18 Blood Pressure 157/82 H 153/84 H Pulse Oximetry 100 98 100 08/10/18 10:00 Temperature Pulse Rate 72 Respiratory Rate 17 Blood Pressure 150/88 H Pulse Oximetry 100 Intake & Output 08/09/18 08/10/18 08/10/18 18:59 06:59 18:59 Intake Total 459 / 459 270 / 270 100 / 100 Output Total 500 / 500 400 / 400 Balance -41 / -41 -130 / -130 100 / 100 Intake: IV 350 / 350 150 / 150 100 / 100 Versed Inj 50 mg In 50 ml @ 2 50 / 50 50 / 50 MG/HR 2 mls/hr IV.CONT TITRATE PRN Rx#:[id number] Diprivan 1000 mg/100 ml Inj 1, 300 / 300 100 / 100 100 / 100 000 mg In 100 ml @ 5 MCG/KG/MIN 2.517 mls/hr IV.CONT TITRATE PRN Rx#:[id number] Oral 0 / 0 0 / 0 Tube Feeding 109 / 109 120 / 120 Output: Urine Amount (Catheter) 500 / 500 400 / 400 Indwelling Urethral Catheter 500 / 500 400 / 400 Other: Date of Last Bowel Movement 08/08/18 08/10/18 # Bowel Movements 0 1 - Constitutional no acute distress - Routine HEENT Exam Head: Present: normocephalic Eye: Present: PERRL ENT: Present: mucous membranes moist - Routine Neck Exam Present: supple - Routine Respiratory Exam Present: CTA bilaterally - Routine Cardiovascular Exam Present: S1, S2. Absent: gallop, rubs - Routine Abdominal Exam Present: normoactive bowel sounds - Routine Extremities Exam Present: edema, pulses intact, normal capillary refill. Absent: cyanosis, clubbing - Routine Skin Exam Present: intact - Routine Neurological Exam Patient intubated and sedated. - Detailed Neurological Exam: Coma Scale Eye Opening: To sound Verbal Response: None Motor Response: None Paula Coma Scale Total: 5 - Routine Psychiatric Exam Present: unable to assess - Urinary Catheter Management Indwelling Urethral Catheter Cath placed during this visit: yes Reason for continuing: Hourly intake/output Insertion date: 08/09/18 Insertion time: 04:48 Results 08/10/18 03:30 08/10/18 03:30 Cardiac Enzymes 08/09/18 08/09/18 08/09/18 Range/Units 04:30 04:30 09:40 AST 27 (15-37) U/L Troponin I 0.03 Less than 0.02 L (0.02-0.05) ng/mL B-Natriuretic Peptide 2262 H (0-100) pg/mL 08/09/18 08/10/18 Range/Units 12:32 03:30 AST 17 (15-37) U/L Troponin I 0.14 H (0.02-0.05) ng/mL B-Natriuretic Peptide (0-100) pg/mL Coagulation 08/09/18 08/09/18 08/10/18 Range/Units 04:30 04:55 03:30 PT 11.0 10.3 (9.8-11.6) sec APTT 25.9 (24.3-30.1) sec B-Natriuretic Peptide 2262 H (0-100) pg/mL CBC 08/09/18 08/10/18 Range/Units 04:30 03:30 WBC 16.6 H 7.6 D (4.0-11.0) th/mm3 RBC 3.41 L 2.64 L (4.50-5.90) mil/mm3 Hgb 10.0 L 8.1 L (13.0-17.0) gm/dL Hct 30.9 L 23.3 L (39.0-51.0) % Plt Count 438 253 D (150-450) th/mm3 Neut # (Auto) 14.0 H 5.7 (1.8-7.7) th/mm3 Lymph # (Auto) 1.5 1.2 (1.0-4.8) th/mm3 [place] # (Auto) 0.8 0.5 (0.0-0.9) th/mm3 Eos # (Auto) 0.1 0.2 (0.0-0.4) th/mm3 Baso # (Auto) 0.1 0.1 (0.0-0.2) th/mm3 Comprehensive Metabolic Panel 08/09/18 08/10/18 Range/Units 04:30 03:30 Sodium 139 139 (136-145) meq/L Potassium 4.5 4.5 (3.5-5.1) meq/L Chloride 108 H 107 (98-107) meq/L Carbon Dioxide 23.5 23.6 (21.0-32.0) meq/L BUN 41 H 49 H (7-18) mg/dL Creatinine 2.06 H 2.70 H (0.60-1.30) mg/dL Calcium 7.7 L 7.7 L (8.5-10.1) mg/dL AST 27 17 (15-37) U/L ALT 24 20 (12-78) U/L Alkaline Phosphatase 83 65 (45-117) U/L Total Protein 6.0 L 5.2 L D (6.4-8.2) g/dL Albumin 2.0 L 1.6 L (3.4-5.0) g/dL Intake and Output 08/09/18 08/10/18 08/10/18 22:59 06:59 14:59 Intake Total 359 / 359 120 / 120 100 / 100 Output Total 500 / 500 400 / 400 Balance -141 / -141 -280 / -280 100 / 100 Intake: IV 250 / 250 100 / 100 Versed Inj 50 mg In 50 ml @ 2 50 / 50 MG/HR 2 mls/hr IV.CONT TITRATE PRN Rx#:[id number] Diprivan 1000 mg/100 ml Inj 1, 200 / 200 100 / 100 000 mg In 100 ml @ 5 MCG/KG/MIN 2.517 mls/hr IV.CONT TITRATE PRN Rx#:[id number] Oral 0 / 0 0 / 0 Tube Feeding 109 / 109 120 / 120 Output: Urine Amount (Catheter) 500 / 500 400 / 400 Indwelling Urethral Catheter 500 / 500 400 / 400 Other: Date of Last Bowel Movement 08/08/18 08/10/18 # Bowel Movements 0 1 - Imaging and Cardiology Imaging: Impressions Chest X-Ray 08/09/18 04:18 CONCLUSION: 1. Bilateral airspace disease. 2. Endotracheal tube 6.5 cm above the navneet. 3. Small right pleural effusion. Chest X-Ray 08/10/18 10:00 CONCLUSION: Interval improvement in apparent pulmonary edema. Assessment and Plan - Assessment (1) Diastolic CHF Code(s): I50.30 - Unspecified diastolic (congestive) heart failure Status: Acute (2) Hypertension Code(s): I10 - Essential (primary) hypertension Status: Acute (3) Respiratory failure Code(s): J96.90 - Respiratory failure, unspecified, unspecified whether with hypoxia or hypercapnia Status: Acute (4) Left ventricular diastolic dysfunction Code(s): I51.9 - Heart disease, unspecified Status: Acute - Plan Patient having left ventricular diastolic dysfunction secondary to hypertensive heart disease. Continue tx for CHF. Continue to titrate medications for blood pressure control. Patient having decreased kidney function, nephrology evaluation in progress. Wean vent for extubation as patient tolerates. Patient to follow up with Dr. Cook after discharge. Patient was seen and evaluated by Dr. Isaacs who participated in care, management and decision making. - Attending Attestation Patient seen and examined. I reviewed and agree with the evaluation and plan as presented. Continue tx for CHF and BP control. Nephrology evaluation. D/w pt's .
[2018-08-10 13:14] LABS: Hematocrit 26.6 % (39.0-51.0); Hemoglobin 8.8 gm/dL (13.0-17.0)
[2018-08-10 13:32] LABS: % Iron Saturation 10.6 % (20-50)
[2018-08-10 13:55] LABS: Amorphous Sediment,Urine Few /hpf; Bacteria,Urine Few /hpf; Bilirubin,Urine Negative (Negative); Color,Urine Yellow (Yellw/Straw); Glucose,Urine (UA) Negative (Negative); Hyaline Casts,Urine 34 /lpf (0-3); Leukocyte Esterase,Urine Small (Negative); Mucus,Urine Few /lpf (Occasional); Nitrite,Urine Negative (Negative); Specific Gravity,Urine 1.009 (1.002-1.035); Squamous Epithelial Cell,Urine 3 /hpf (0-5)
[2018-08-10 13:57] LABS: Clarity,Urine Hazy (Clear)
[2018-08-10 14:11] LABS: Protein/Creatinine Ratio,Urine 0.84 (0.00-0.14)
--- NOTE | 2018-08-10 14:22 | MB ---
cc: Ruddy Sarabia MD DATE: 08/10/2018 REASON FOR CONSULTATION: Acute renal failure management. HISTORY OF PRESENT ILLNESS: This is a 57-year-old male with a history of diastolic congestive heart failure with an ejection fraction of 55%. The patient was admitted to the emergency room last night when he had acute respiratory distress. Apparently, at home, the patient had dyspnea and was intubated here in the ER. He had a systolic blood pressure of 230s at the time of arrival, the patient was started with IV blood pressure medications and his blood pressure has improved. Apparently, per the patient's family, the patient had increasing peripheral edema and issues with hypertension post his recent cholecystectomy surgery, leading up to his respiratory failure. Of note, the patient has a history of Lasix allergy, and he has been treated here with Bumex as well as spironolactone for diuresis. At this point, the patient is intubated and here in the ICU. He is opening his eyes and is somewhat awake; however, remains intubated. His creatinine is elevated from the level of 2.0 at time of admission up to a level 2.7 today. Over the last 24 hours, he has had 900 mL of urine output on Bumex 1 mg IV q.6 hours as well as Aldactone 50 mg daily. Of note, his urinalysis shows signs of 500 protein with 10 RBCs and 10 WBCs, as well as hyaline cast and few mucus. No previous urinalysis studies are available for comparison of proteinuria. Given renal dysfunction, Nephrology was consulted for further evaluation. REVIEW OF SYSTEMS: Unobtainable as the patient is intubated at this time. PAST MEDICAL HISTORY: Includes congestive heart failure with diastolic heart failure secondary to hypertension. PAST SURGICAL HISTORY: Includes cholecystectomy recently. SOCIAL HISTORY: No apparent tobacco, alcohol or drug use noted, per review of the charts. FAMILY HISTORY: Noncontributory. HOME MEDICATIONS: Unknown. ALLERGIES: INCLUDE LASIX ALLERGY WITH RASH. PHYSICAL EXAMINATION: VITAL SIGNS: At time of evaluation, temperature 98.2, pulse 73, respirations 16, blood pressure 138/85, pulse oximetry 99% intubated. GENERAL: Intubated, opens eyes. NECK: Soft, supple. CARDIAC: Regular rate and rhythm. PULMONARY: Decreased breath sounds at bases. ABDOMEN: Soft. Surgical scarring post cholecystectomy. EXTREMITIES: 2-3+ edema. LABORATORY FINDINGS: Sodium 139, potassium 4.5, chloride 107, bicarbonate 23.6, BUN 49, creatinine 2.7, glucose 93, phosphorus 6.9, magnesium 2.2. BNP 2262. Albumin 1.6. LDL 145, HDL 28.9. Urinalysis with greater than 500 protein, moderate blood, 10 RBCs, 10 WBCs, occasional bacteria, few mucus. White count 7.6, hemoglobin 8.1, hematocrit 23.3 with platelet count of 253. ASSESSMENT AND PLAN: 1. Acute kidney injury. The patient presented with a creatinine of 2.0, which is elevated up to a level of 2.7 here. Earlier in October, his creatinine ranged between 1.2 and 1.5. At this point, I suspect he has acute kidney injury secondary to recent hypertensive episode where he presented here with systolic blood pressure 230s. In addition, there may be some underlying chronic kidney disease here as well. The patient has over 500 protein in his urinalysis as well as a low albumin level of 1.6. He additionally has 10 RBCs and 10 WBCs in the urine. Mucus is seen as well. There is a possibility he may have some underlying nephrotic syndrome. To further assess this, I am going to further check a urine protein to creatinine ratio, as well as a renal ultrasound. We will go ahead and order an RUI, as well as SPEP, UPEP, C3-C4 and hemoglobin A1c and HIV panel. It is unclear if this proteinuria is an acute manifestation of his acute renal failure; however, proteinuria with low albumin is somewhat concerning for nephrotic syndrome. At this point, he is making urine output. He is currently on Bumex 1 mg IV q.6 hours as well as Aldactone 50 mg daily. There is a noted Lasix allergy. It does not appear that he is having any reaction of the Bumex, which has been previously ordered. Continue Bumex at this point and titrate as needed. Urine output is encouraging in this setting. Continue to monitor closely and followup with critical care team. 2. Congestive heart failure, apparent diastolic congestive heart failure with a 55% ejection fraction. Continue medications. Continue to monitor. 3. Hypertension. The patient has presented here with systolic blood pressure in the 230s. He has been started with his home blood pressure medications and is receiving Coreg as well here. His blood pressure significantly improved with systolic blood pressure in the 130s. Continue to monitor at this point. 4. Status post recent cholecystectomy. Continue to follow up and monitor. 5. Respiratory failure. The patient is intubated at this time. Continue with diuresis. 6. Anemia. The patient with a hemoglobin of 8. We will check iron studies. MD MARTÍNEZ Graham/esther , 11:33 AM , 11:45 AM [email or web address]
[2018-08-10 14:25] LABS: Hepatitis A IgM Antibody Nonreactive (Nonreactive); Hepatitits B Surface Antigen Nonreactive (Nonreactive)
--- NOTE | 2018-08-10 14:26 | US ---
EXAM DATE: 08/10/2018 12:00 AM EDT AGE/SEX: 57 years / Male INDICATIONS: Abnormal labs. CLINICAL DATA: This is the patient's initial encounter. Patient reports that signs and symptoms have been present for 1 day and indicates a pain score of 1/10. MEDICAL/SURGICAL HISTORY: . Chronic kidney disease. Congestive heart failure. Hypertension. Ch olecystectomy. COMPARISON: [facility], CT ABDOMEN & PELVIS W/O CONTRAST, 07/24/2011. . MEASUREMENTS: Right Kidney:__14.1 x 4.6 x 5.1 cm Left Kidney:__16.0 x 6.5 x 5.2 cm FINDINGS: Right Kidney: Increased echotexture. No mass or hydronephrosis. Anechoic avascular 2.0 x 1.8 x 1.6 cm cyst in the superior pole. Left Kidney: Increased echotexture. No mass or hydronephrosis. Bladder: Horan catheter is present. Bladder decompressed. Other: Trace free fluid along the inferior margin of the liver. Small left sided pleural effusion. CONCLUSION: 1. Echogenic kidneys consistent with medical renal disease. 2. No sonographic evidence for obstructive uropathy. 3. Trace ascites. 4. Small left pleural effusion. Electronically signed by: Horacio Echevarria MD 08/10/2018 2:24 PM EDT
[2018-08-10 14:54] LABS: Hemoglobin A1c 5.2 % (4.3-6.0)
[2018-08-10] MEDS: Clevidipine Inj 25 MG/50 ML VIAL IV.CONT PRN (16:30)
[2018-08-10] MEDS: Midazolam 50 MG/50 ML Inj 50 MG/50 ML BAG IV.CONT PRN (16:53)
[2018-08-11] MEDS: Propofol 1000 mg/100 ml Inj 1,000 MG/100 ML BOTTLE IV.CONT PRN ×6 (01:23→23:57)
[2018-08-11] MEDS: Midazolam 50 MG/50 ML Inj 50 MG/50 ML BAG IV.CONT PRN ×3 (01:25→19:51)
[2018-08-11] MEDS: Oral Hygiene Kit OROPHARYNG SCH ×4 (03:44→23:26)
[2018-08-11] MEDS: Clevidipine Inj 25 MG/50 ML VIAL IV.CONT PRN ×3 (03:44→15:31)
[2018-08-11] MEDS: Chlorhexidine Gluconate 2% 1 Pack (2 Cloths) TOPICAL SCH (03:44)
[2018-08-11] MEDS: Heparin - SQ 10,000 UNITS/ML Vial SQ SCH ×3 (05:29→21:04)
[2018-08-11 08:10] LABS: Hematocrit 29.1 % (39.0-51.0); Hemoglobin 9.7 gm/dL (13.0-17.0); Mean Corpuscular HGB Conc 33.4 % (32.0-36.0); Mean Corpuscular Hemoglobin 30.1 pg (27.0-34.0); Mean Corpuscular Volume 90.3 fL (80.0-100.0); Mean Platelet Volume 9.2 fL (7.0-11.0); Platelet Count 322 th/mm3 (150-450); Red Blood Count 3.22 mil/mm3 (4.50-5.90); Red Cell Distribution Width 13.4 % (11.6-17.2); White Blood Count 7.4 th/mm3 (4.0-11.0)
[2018-08-11] MEDS: Chlorhexidine 0.12% Oral Kit 15 ML UDC OROPHARYNG SCH ×2 (08:20→19:52)
[2018-08-11] MEDS: Famotidine PF Inj 20 MG/2 ML Vial IV.PUSH SCH ×2 (08:20→20:05)
[2018-08-11] MEDS: Spironolactone 50 MG Tablet PO SCH (08:20)
[2018-08-11] MEDS: Carvedilol 12.5 MG Tablet PO SCH ×2 (08:20→20:05)
[2018-08-11] MEDS: Doxazosin 4 MG Tablet PO SCH (08:20)
[2018-08-11] MEDS: Senna/Docusate Sodium 8.6/50 MG Tablet PO SCH ×2 (08:21→20:05)
[2018-08-11 08:27] LABS: Alanine Aminotransferase 22 U/L (12-78); Albumin 1.8 g/dL (3.4-5.0); Anion Gap 10 meq/L (5-15); Aspartate Aminotransferase 23 U/L (15-37); Blood Urea Nitrogen 50 mg/dL (7-18); Calcium 7.9 mg/dL (8.5-10.1); Carbon Dioxide 24.4 meq/L (21.0-32.0); Chloride 107 meq/L (98-107); Glomerular Filtration Rate 28 mL/min (>89); Glucose,Random 104 mg/dL (74-106); Magnesium 2.4 mg/dL (1.5-2.5); Potassium 4.1 meq/L (3.5-5.1)
[2018-08-11 08:29] LABS: Alkaline Phosphatase 85 U/L (45-117); Total Protein 5.8 g/dL (6.4-8.2)
[2018-08-11 08:49] LABS: Sodium 141 meq/L (136-145)
--- NOTE | 2018-08-11 09:56 | P.PNCA ---
Subjective Interval history: Patient intubated and sedated. Does open eyes to voice or stimulation. Does not appear to be in any acute distress. Medications and Allergies Allergies Allergy/AdvReac Type Severity Reaction Status Date / Time furosemide Allergy Severe Rash Verified 10/30/17 07:10 amlodipine [From Norvasc] Allergy Swelling Verified 08/09/18 07:41 lisinopril Allergy Cough Verified 08/09/18 07:41 losartan Allergy Rash, Verified 08/09/18 07:41 Localized nifedipine [From Procardia] Allergy Swelling Verified 08/09/18 07:41 Home Medications Medication Instructions Recorded Confirmed Type carvedilol 25 mg PO BID 08/09/18 08/09/18 History doxazosin [Cardura] 4 mg PO DAILY 08/09/18 08/09/18 History omeprazole 40 mg PO DAILY 08/09/18 08/09/18 History spironolactone [Aldactone] 50 mg PO DAILY 08/09/18 08/09/18 History Active Medications: Active Medications Acetaminophen (Tylenol) 650 mg PO Q6H PRN PRN Reason: PAIN 1-10 AND/OR FEVER >101F Al Hydroxide/Mg Hydroxide (Milk [employer]) 30 ml PO Q12H PRN PRN Reason: Mild Constipation Albuterol (Duoneb Neb (Prn)) 1 ampul NEB Q2HR NEB PRN PRN Reason: WHEEZING Bisacodyl (Dulcolax Supp) 10 mg RECTAL DAILY PRN PRN Reason: SEVERE CONSITIPATION Bumetanide (Bumex Inj) 1 mg IV.PUSH Q6HR [facility] Last Admin: 08/11/18 05:29 Dose: 1 mg Carvedilol (Coreg) 25 mg PO BID [facility] Last Admin: 08/11/18 08:20 Dose: 25 mg Chlorhexidine Gluconate (Peridex 0.12% Oral Kit) 15 ml OROPHARYNG BID@0800, 2000 [facility] Last Admin: 08/11/18 08:20 Dose: 15 ml Chlorhexidine Gluconate (Chlorhexidine 2% Cloth) 3 pack TOPICAL DAILY@0400 [facility] Stop: 08/15/18 03:59 Last Admin: 08/11/18 03:44 Dose: 3 pack Chlorhexidine Gluconate (Chlorhexidine 2% Cloth) 3 pack TOPICAL DAILY@0400 PRN PRN Reason: Extra cloth needed Stop: 08/15/18 03:59 Diphenhydramine HCl (Benadryl Liq) 25 mg NG/OG Q4H PRN PRN Reason: RASH Doxazosin Mesylate (Cardura) 4 mg PO DAILY [facility] Last Admin: 08/11/18 08:20 Dose: 4 mg Famotidine (Pepcid Pf Inj) 10 mg IV.PUSH Q12HR [facility] Last Admin: 08/11/18 08:20 Dose: 10 mg Heparin Sodium (Porcine) (Heparin Inj) 5,000 units SQ Q8H [facility] Last Admin: 08/11/18 05:29 Dose: 5,000 units Midazolam HCl (Versed Inj) 50 mg in 50 mls @ 2 mls/hr IV.CONT TITRATE PRN; Protocol PRN Reason: Per Protocol Last Admin: 08/11/18 05:30 Dose: 5 mg/hr, 5 mls/hr Nitroglycerin/Dextrose (Nitroglycerin Drip Premix) 50 mg in 250 mls @ 0 mls/hr IV.CONT TITRATE PRN; Protocol PRN Reason: Per Protocol Last Titration: 08/09/18 14:00 Dose: 0 mcg/min, 0 mls/hr Propofol (Diprivan 1000 Mg/100 Ml Inj) 1,000 mg in 100 mls @ 2.517 mls/hr IV.CONT TITRATE PRN; Protocol PRN Reason: Per Protocol Last Admin: 08/11/18 05:29 Dose: 50 mcg/kg/min, 25.18 mls/hr Clevidipine (Cleviprex Inj) 25 mg in 50 mls @ 2 mls/hr IV.CONT TITRATE PRN; Protocol PRN Reason: Per protocol Last Titration: 08/11/18 07:45 Dose: 2 mg/hr, 4 mls/hr Lactulose (Lactulose Liq) 30 ml PO DAILY PRN PRN Reason: SEVERE CONSITIPATION Midazolam HCl (Versed Inj) 2 mg IV.PUSH Q1H PRN PRN Reason: SEDATION Miscellaneous Medication () 1 each OROPHARYNG 0000,0400,1200,1600 [facility] Last Admin: 08/11/18 03:44 Dose: 1 each Morphine Sulfate (Morphine Inj) 2 mg IV.PUSH Q2H PRN PRN Reason: PAIN SCALE 6 TO 10 Ondansetron HCl (Zofran Inj) 4 mg IV.PUSH Q6H PRN PRN Reason: NAUSEA OR VOMITING Senna/Docusate Sodium (Erika-Colace) 1 tab PO BID [facility] Last Admin: 08/11/18 08:21 Dose: Not Given Sennosides (Senokot) 17.2 mg PO Q12H PRN PRN Reason: Moderate Constipation Sodium Chloride (Ns Flush) 2 ml IV.FLUSH BID [facility] Last Admin: 08/11/18 08:20 Dose: 2 ml Sodium Chloride (Ns Flush) 2 ml IV.FLUSH PRN PRN PRN Reason: FLUSH AFTER USING IV ACCESS Spironolactone (Aldactone) 50 mg PO DAILY [facility] Last Admin: 08/11/18 08:20 Dose: 50 mg Physical Exam Vital signs: Vital Signs 08/10/18 10:00 08/10/18 10:15 08/10/18 10:30 Temperature Pulse Rate 72 74 72 Respiratory Rate 17 25 H 16 Blood Pressure 150/88 H 154/91 H 150/87 H Pulse Oximetry 100 100 100 08/10/18 10:45 08/10/18 11:00 08/10/18 11:16 Temperature Pulse Rate 73 75 74 Respiratory Rate 23 17 30 H Blood Pressure 158/80 H 162/84 H 134/77 Pulse Oximetry 99 100 100 08/10/18 11:30 08/10/18 11:45 08/10/18 12:00 Temperature 99.1 F Pulse Rate 74 75 75 Respiratory Rate 16 16 16 Blood Pressure 134/79 133/83 135/79 Pulse Oximetry 100 100 99 08/10/18 12:15 08/10/18 12:30 08/10/18 12:45 Temperature Pulse Rate 73 74 74 Respiratory Rate 16 16 16 Blood Pressure 141/83 H 126/83 139/78 Pulse Oximetry 100 100 100 08/10/18 12:59 08/10/18 13:00 08/10/18 13:10 Temperature Pulse Rate 76 75 74 Respiratory Rate 16 16 16 Blood Pressure 161/79 H 144/77 H Pulse Oximetry 100 100 100 08/10/18 13:15 08/10/18 13:30 08/10/18 13:45 Temperature Pulse Rate 74 73 72 Respiratory Rate 16 16 16 Blood Pressure 156/82 H 157/87 H 152/79 H Pulse Oximetry 100 100 99 08/10/18 14:00 08/10/18 14:15 08/10/18 14:30 Temperature Pulse Rate 72 71 70 Respiratory Rate 16 16 16 Blood Pressure 147/84 H 142/80 H 163/80 H Pulse Oximetry 99 100 100 08/10/18 14:45 08/10/18 15:00 08/10/18 15:15 Temperature Pulse Rate 67 69 71 Respiratory Rate 16 16 16 Blood Pressure 160/82 H 150/83 H 178/87 H Pulse Oximetry 100 100 100 08/10/18 15:30 08/10/18 15:45 08/10/18 16:00 Temperature Pulse Rate 76 75 75 Respiratory Rate 17 16 16 Blood Pressure 178/94 H 180/93 H 175/93 H Pulse Oximetry 100 100 100 08/10/18 16:15 08/10/18 16:30 08/10/18 16:32 Temperature Pulse Rate 72 73 Respiratory Rate 16 16 17 Blood Pressure 168/92 H 166/91 H Pulse Oximetry 100 99 100 08/10/18 16:45 08/10/18 17:00 08/10/18 17:15 Temperature Pulse Rate 74 78 79 Respiratory Rate 16 16 18 Blood Pressure 159/87 H 162/89 H 158/76 H Pulse Oximetry 100 100 99 08/10/18 17:30 08/10/18 17:45 08/10/18 18:00 Temperature Pulse Rate 82 76 76 Respiratory Rate 17 16 16 Blood Pressure 137/66 159/77 H 142/73 H Pulse Oximetry 99 99 100 08/10/18 19:50 08/10/18 20:00 08/10/18 22:00 Temperature 97.8 F Pulse Rate 74 77 Respiratory Rate 17 16 Blood Pressure 135/78 Pulse Oximetry 100 98 08/10/18 22:21 08/11/18 00:00 08/11/18 01:14 Temperature 98 F Pulse Rate 76 Respiratory Rate 16 16 16 Blood Pressure 127/69 Pulse Oximetry 98 97 98 08/11/18 02:00 08/11/18 04:00 08/11/18 04:06 Temperature 97.9 F Pulse Rate 74 74 Respiratory Rate 16 16 Blood Pressure 124/71 Pulse Oximetry 97 96 08/11/18 06:00 08/11/18 07:27 Temperature Pulse Rate 71 Respiratory Rate 16 Blood Pressure Pulse Oximetry 97 Intake & Output 08/10/18 08/11/18 08/11/18 18:59 06:59 18:59 Intake Total 627 / 627 697 / 697 Output Total 1000 / 1000 1100 / 1100 Balance -373 / -373 -403 / -403 Weight 84.5 kg Intake: IV 350 / 350 450 / 450 Cleviprex Inj 25 mg In 50 ml @ 50 / 50 1 MG/HR 2 mls/hr IV.CONT TITRATE PRN Rx#:[id number] Versed Inj 50 mg In 50 ml @ 2 50 / 50 100 / 100 MG/HR 2 mls/hr IV.CONT TITRATE PRN Rx#:[id number] Diprivan 1000 mg/100 ml Inj 1, 300 / 300 300 / 300 000 mg In 100 ml @ 5 MCG/KG/MIN 2.517 mls/hr IV.CONT TITRATE PRN Rx#:[id number] Oral 0 / 0 Tube Feeding 277 / 277 247 / 247 Output: Urine Amount (Catheter) 1000 / 1000 1100 / 1100 Indwelling Urethral Catheter 1000 / 1000 1100 / 1100 Other: Date of Last Bowel Movement 08/10/18 # Bowel Movements 0 - Constitutional no acute distress - Routine HEENT Exam Head: Present: normocephalic Eye: Present: PERRL ENT: Present: mucous membranes moist - Routine Neck Exam Present: supple - Routine Respiratory Exam Present: patient mechanically ventilated Comments: rhonchi in left upper lobe. - Routine Cardiovascular Exam Present: S1, S2. Absent: murmur, gallop, rubs - Routine Abdominal Exam Present: normoactive bowel sounds - Routine Extremities Exam Present: edema, pulses intact, normal capillary refill. Absent: cyanosis, clubbing - Routine Skin Exam Present: intact - Routine Neurological Exam Sedated, opens eyes to voice - Detailed Neurological Exam: Coma Scale Eye Opening: To sound Verbal Response: None Motor Response: None Paula Coma Scale Total: 5 - Routine Psychiatric Exam Present: unable to assess - Urinary Catheter Management Indwelling Urethral Catheter Cath placed during this visit: yes Reason for continuing: Hourly intake/output Insertion date: 08/09/18 Insertion time: 04:48 Results 08/11/18 07:26 08/11/18 07:26 Cardiac Enzymes 08/09/18 08/09/18 08/10/18 Range/Units 09:40 12:32 03:30 AST 17 (15-37) U/L Troponin I Less than 0.02 L 0.14 H (0.02-0.05) ng/mL 08/11/18 Range/Units 07:26 AST 23 (15-37) U/L Troponin I (0.02-0.05) ng/mL Coagulation 08/10/18 Range/Units 03:30 PT 10.3 (9.8-11.6) sec APTT 25.9 (24.3-30.1) sec CBC 08/10/18 08/10/18 08/11/18 Range/Units 03:30 12:45 07:26 WBC 7.6 D 7.4 (4.0-11.0) th/mm3 RBC 2.64 L 3.22 L (4.50-5.90) mil/mm3 Hgb 8.1 L 8.8 L 9.7 L (13.0-17.0) gm/dL Hct 23.3 L 26.6 L 29.1 L (39.0-51.0) % Plt Count 253 D 322 (150-450) th/mm3 Neut # (Auto) 5.7 (1.8-7.7) th/mm3 Lymph # (Auto) 1.2 (1.0-4.8) th/mm3 [place] # (Auto) 0.5 (0.0-0.9) th/mm3 Eos # (Auto) 0.2 (0.0-0.4) th/mm3 Baso # (Auto) 0.1 (0.0-0.2) th/mm3 Comprehensive Metabolic Panel 08/10/18 08/11/18 Range/Units 03:30 07:26 Sodium 139 141 (136-145) meq/L Potassium 4.5 4.1 (3.5-5.1) meq/L Chloride 107 107 (98-107) meq/L Carbon Dioxide 23.6 24.4 (21.0-32.0) meq/L BUN 49 H 50 H (7-18) mg/dL Creatinine 2.70 H 2.41 H (0.60-1.30) mg/dL Calcium 7.7 L 7.9 L (8.5-10.1) mg/dL AST 17 23 (15-37) U/L ALT 20 22 (12-78) U/L Alkaline Phosphatase 65 85 (45-117) U/L Total Protein 5.2 L D 5.8 L D (6.4-8.2) g/dL Albumin 1.6 L 1.8 L (3.4-5.0) g/dL Intake and Output 08/10/18 08/11/18 08/11/18 22:59 06:59 14:59 Intake Total 527 / 527 597 / 597 Output Total 1000 / 1000 1100 / 1100 Balance -473 / -473 -503 / -503 Intake: IV 250 / 250 350 / 350 Cleviprex Inj 25 mg In 50 ml @ 50 / 50 1 MG/HR 2 mls/hr IV.CONT TITRATE PRN Rx#:[id number] Versed Inj 50 mg In 50 ml @ 2 50 / 50 100 / 100 MG/HR 2 mls/hr IV.CONT TITRATE PRN Rx#:[id number] Diprivan 1000 mg/100 ml Inj 1, 200 / 200 200 / 200 000 mg In 100 ml @ 5 MCG/KG/MIN 2.517 mls/hr IV.CONT TITRATE PRN Rx#:[id number] Oral 0 / 0 Tube Feeding 277 / 277 247 / 247 Output: Urine Amount (Catheter) 1000 / 1000 1100 / 1100 Indwelling Urethral Catheter 1000 / 1000 1100 / 1100 Other: Date of Last Bowel Movement 08/10/18 # Bowel Movements 0 Weight 84.5 kg - Imaging and Cardiology Imaging: Impressions Abdomen/Bladder Ultrasound 08/10/18 00:00 CONCLUSION: 1. Echogenic kidneys consistent with medical renal disease. 2. No sonographic evidence for obstructive uropathy. 3. Trace ascites. 4. Small left pleural effusion. Chest X-Ray 08/10/18 10:00 CONCLUSION: Interval improvement in apparent pulmonary edema. Assessment and Plan - Assessment (1) Diastolic CHF Code(s): I50.30 - Unspecified diastolic (congestive) heart failure Status: Acute (2) Hypertension Code(s): I10 - Essential (primary) hypertension Status: Acute (3) Respiratory failure Code(s): J96.90 - Respiratory failure, unspecified, unspecified whether with hypoxia or hypercapnia Status: Acute (4) Left ventricular diastolic dysfunction Code(s): I51.9 - Heart disease, unspecified Status: Acute - Plan Patient having left ventricular diastolic dysfunction secondary to hypertensive heart disease. Continue current tx for CHF. Continue to titrate medications for blood pressure control. Nephrology evaluation in progress due to decreased kidney function Continue to wean vent as patient tolerates, still has copious secretions and not ready to wean and extubate. Continue ICU care. D/w pt's . Patient to follow up with Dr. Cook after discharge. Patient was seen and evaluated by Dr. Isaacs who participated in care, management and decision making. - Attending Attestation Patient seen and examined. I reviewed and agree with the evaluation and plan as presented. Continue and titrate BP control. Not ready for extubation yet. D/w pt 's .
--- NOTE | 2018-08-11 10:51 | P.PNNP ---
Subjective Interval history: 57-year-old white male with history of chronic kidney disease baseline creatinine around 1.4-1.6, hepatitis C antibody, he underwent cholecystectomy 1 week ago at [facility], admitted with hypertensive crisis and congestive heart failure, intubated blood pressure 214/124 on Physical Exam Vital signs: Vital Signs 08/10/18 10:45 08/10/18 11:00 08/10/18 11:16 Temperature Pulse Rate 73 75 74 Respiratory Rate 23 17 30 H Blood Pressure 158/80 H 162/84 H 134/77 Pulse Oximetry 99 100 100 08/10/18 11:30 08/10/18 11:45 08/10/18 12:00 Temperature 99.1 F Pulse Rate 74 75 75 Respiratory Rate 16 16 16 Blood Pressure 134/79 133/83 135/79 Pulse Oximetry 100 100 99 08/10/18 12:15 08/10/18 12:30 08/10/18 12:45 Temperature Pulse Rate 73 74 74 Respiratory Rate 16 16 16 Blood Pressure 141/83 H 126/83 139/78 Pulse Oximetry 100 100 100 08/10/18 12:59 08/10/18 13:00 08/10/18 13:10 Temperature Pulse Rate 76 75 74 Respiratory Rate 16 16 16 Blood Pressure 161/79 H 144/77 H Pulse Oximetry 100 100 100 08/10/18 13:15 08/10/18 13:30 08/10/18 13:45 Temperature Pulse Rate 74 73 72 Respiratory Rate 16 16 16 Blood Pressure 156/82 H 157/87 H 152/79 H Pulse Oximetry 100 100 99 08/10/18 14:00 08/10/18 14:15 08/10/18 14:30 Temperature Pulse Rate 72 71 70 Respiratory Rate 16 16 16 Blood Pressure 147/84 H 142/80 H 163/80 H Pulse Oximetry 99 100 100 08/10/18 14:45 08/10/18 15:00 08/10/18 15:15 Temperature Pulse Rate 67 69 71 Respiratory Rate 16 16 16 Blood Pressure 160/82 H 150/83 H 178/87 H Pulse Oximetry 100 100 100 08/10/18 15:30 08/10/18 15:45 08/10/18 16:00 Temperature Pulse Rate 76 75 75 Respiratory Rate 17 16 16 Blood Pressure 178/94 H 180/93 H 175/93 H Pulse Oximetry 100 100 100 08/10/18 16:15 08/10/18 16:30 08/10/18 16:32 Temperature Pulse Rate 72 73 Respiratory Rate 16 16 17 Blood Pressure 168/92 H 166/91 H Pulse Oximetry 100 99 100 08/10/18 16:45 08/10/18 17:00 08/10/18 17:15 Temperature Pulse Rate 74 78 79 Respiratory Rate 16 16 18 Blood Pressure 159/87 H 162/89 H 158/76 H Pulse Oximetry 100 100 99 08/10/18 17:30 08/10/18 17:45 08/10/18 18:00 Temperature Pulse Rate 82 76 76 Respiratory Rate 17 16 16 Blood Pressure 137/66 159/77 H 142/73 H Pulse Oximetry 99 99 100 08/10/18 19:50 08/10/18 20:00 08/10/18 22:00 Temperature 97.8 F Pulse Rate 74 77 Respiratory Rate 17 16 Blood Pressure 135/78 Pulse Oximetry 100 98 08/10/18 22:21 08/11/18 00:00 08/11/18 01:14 Temperature 98 F Pulse Rate 76 Respiratory Rate 16 16 16 Blood Pressure 127/69 Pulse Oximetry 98 97 98 08/11/18 01:15 08/11/18 01:30 08/11/18 01:45 Temperature Pulse Rate 77 76 77 Respiratory Rate 16 16 16 Blood Pressure 137/87 133/80 135/79 Pulse Oximetry 98 98 97 08/11/18 02:00 08/11/18 02:15 08/11/18 02:30 Temperature Pulse Rate 74 75 85 Respiratory Rate 16 16 17 Blood Pressure 141/77 H 143/79 H 163/84 H Pulse Oximetry 99 98 96 08/11/18 02:45 08/11/18 03:00 08/11/18 03:15 Temperature Pulse Rate 79 78 75 Respiratory Rate 16 16 16 Blood Pressure 148/78 H 141/77 H 126/69 Pulse Oximetry 100 99 97 08/11/18 03:30 08/11/18 03:45 08/11/18 04:00 Temperature 97.9 F Pulse Rate 74 74 74 Respiratory Rate 16 16 16 Blood Pressure 122/71 160/81 H 148/77 H Pulse Oximetry 97 100 97 08/11/18 04:06 08/11/18 04:15 08/11/18 04:30 Temperature Pulse Rate 75 72 Respiratory Rate 16 16 16 Blood Pressure 130/70 124/71 Pulse Oximetry 96 95 96 08/11/18 05:00 08/11/18 05:30 08/11/18 06:00 Temperature Pulse Rate 72 72 71 Respiratory Rate 16 16 16 Blood Pressure 136/77 129/69 129/71 Pulse Oximetry 97 95 95 08/11/18 06:30 08/11/18 07:00 08/11/18 07:27 Temperature Pulse Rate 75 75 Respiratory Rate 16 16 16 Blood Pressure 168/88 H 156/80 H Pulse Oximetry 99 95 97 08/11/18 07:30 08/11/18 08:00 08/11/18 08:30 Temperature 98.6 F Pulse Rate 76 76 89 Respiratory Rate 16 12 23 Blood Pressure 164/85 H 164/83 H 182/89 H Pulse Oximetry 98 98 97 08/11/18 09:00 08/11/18 09:30 08/11/18 10:00 Temperature Pulse Rate 96 H 93 H 97 H Respiratory Rate 31 H 28 H 24 Blood Pressure 183/88 H 150/79 H 148/79 H Pulse Oximetry 91 L 95 95 Intake & Output 08/10/18 08/11/18 08/11/18 18:59 06:59 18:59 Intake Total 627 / 627 697 / 697 50 / 50 Output Total 1000 / 1000 1100 / 1100 Balance -373 / -373 -403 / -403 50 / 50 Weight 84.5 kg Intake: IV 350 / 350 450 / 450 50 / 50 Cleviprex Inj 25 mg In 50 ml @ 50 / 50 50 / 50 1 MG/HR 2 mls/hr IV.CONT TITRATE PRN Rx#:[id number] Versed Inj 50 mg In 50 ml @ 2 50 / 50 100 / 100 MG/HR 2 mls/hr IV.CONT TITRATE PRN Rx#:[id number] Diprivan 1000 mg/100 ml Inj 1, 300 / 300 300 / 300 000 mg In 100 ml @ 5 MCG/KG/MIN 2.517 mls/hr IV.CONT TITRATE PRN Rx#:[id number] Oral 0 / 0 Tube Feeding 277 / 277 247 / 247 Output: Urine Amount (Catheter) 1000 / 1000 1100 / 1100 Indwelling Urethral Catheter 1000 / 1000 1100 / 1100 Other: Date of Last Bowel Movement 10/21/18 # Bowel Movements 0 Narrative: GENERAL: Well-nourished, well-developed intubated patient. SKIN: Warm and dry. HEAD: Normocephalic. EYES: No scleral icterus. No injection or drainage. NECK: Supple, trachea midline. No JVD or lymphadenopathy. CARDIOVASCULAR: Regular rate and rhythm without murmurs, gallops, or rubs. RESPIRATORY: Breath sounds equal bilaterally. No accessory muscle use. GASTROINTESTINAL: Abdomen soft, non-tender, nondistended. Postsurgical scar EXTREMITIES: 1+ edema NEUROLOGICAL: Open eyes - Urinary Catheter Management Indwelling Urethral Catheter Cath placed during this visit: yes Reason for continuing: Hourly intake/output Insertion date: 08/09/18 Insertion time: 04:48 Assessment and Plan - Assessment (1) Acute kidney injury superimposed on chronic kidney disease Code(s): N17.9 - Acute kidney failure, unspecified; N18.9 - Chronic kidney disease, unspecified Status: Acute (2) Diastolic CHF Code(s): I50.30 - Unspecified diastolic (congestive) heart failure Status: Acute (3) Hypertension Code(s): I10 - Essential (primary) hypertension Status: Acute (4) Respiratory failure Code(s): J96.90 - Respiratory failure, unspecified, unspecified whether with hypoxia or hypercapnia Status: Acute (5) Left ventricular diastolic dysfunction Code(s): I51.9 - Heart disease, unspecified Status: Acute - Plan Discussed with patient patient has uncontrolled hypertension which was difficult to control after surgery and went into congestive heart failure Acute kidney injury is related to uncontrolled hypertension C4 is low await RUI Hepatitis C antibody positive which she is aware of We will check hepatitis C PCR Continue to monitor the progress Proteinuria has declined from initial reading indicating possible hypotensive kidney injury Continue with Bumex and spironolactone
--- NOTE | 2018-08-11 13:28 | P.PNCC ---
Subjective Subjective Remarks/Hospital Course: 08/09: 57-year-old male with history of diastolic heart failure and preserved ejection fraction of 55% on last echo in October 2017 came to the emergency room brought in by EMS for acute respiratory distress, intubated at the scene. 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 His blood pressure initially upon their arrival was 236 systolic. Patient was given nitro sublingual spray and Lasix. They put a CPAP on him but patient did not tolerated well. At that point the decision was made to intubate him. Patient was given IV etomidate and Versed followed by intubation. Per patient's family at the bedside he had a cholecystectomy done a week ago and since then his blood pressure was poorly controlled as well as worsening of her peripheral edema. The patient has a history of allergic reaction to Lasix with a generalized body rash. 08/10: Remains sedated, orally intubated on mechanical ventilation. Not much urine output with Bumex. Creatinine increasing. 08/11: Sedated, arousable, orally intubated on mechanical ventilation. Failed CPAP trial today. Diuresed with Bumex. Objective Vital Signs / I&O: Vital Signs 08/10/18 13:30 08/10/18 13:45 08/10/18 14:00 Temperature Pulse Rate 73 72 72 Respiratory Rate 16 16 16 Blood Pressure 157/87 H 152/79 H 147/84 H Pulse Oximetry 100 99 99 08/10/18 14:15 08/10/18 14:30 08/10/18 14:45 Temperature Pulse Rate 71 70 67 Respiratory Rate 16 16 16 Blood Pressure 142/80 H 163/80 H 160/82 H Pulse Oximetry 100 100 100 08/10/18 15:00 08/10/18 15:15 08/10/18 15:30 Temperature Pulse Rate 69 71 76 Respiratory Rate 16 16 17 Blood Pressure 150/83 H 178/87 H 178/94 H Pulse Oximetry 100 100 100 08/10/18 15:45 08/10/18 16:00 08/10/18 16:15 Temperature Pulse Rate 75 75 72 Respiratory Rate 16 16 16 Blood Pressure 180/93 H 175/93 H 168/92 H Pulse Oximetry 100 100 100 08/10/18 16:30 08/10/18 16:32 08/10/18 16:45 Temperature Pulse Rate 73 74 Respiratory Rate 16 17 16 Blood Pressure 166/91 H 159/87 H Pulse Oximetry 99 100 100 08/10/18 17:00 08/10/18 17:15 08/10/18 17:30 Temperature Pulse Rate 78 79 82 Respiratory Rate 16 18 17 Blood Pressure 162/89 H 158/76 H 137/66 Pulse Oximetry 100 99 99 08/10/18 17:45 08/10/18 18:00 08/10/18 19:50 Temperature Pulse Rate 76 76 Respiratory Rate 16 16 17 Blood Pressure 159/77 H 142/73 H Pulse Oximetry 99 100 100 08/10/18 20:00 08/10/18 22:00 08/10/18 22:21 Temperature 97.8 F Pulse Rate 74 77 Respiratory Rate 16 16 Blood Pressure 135/78 Pulse Oximetry 98 98 08/11/18 00:00 08/11/18 01:14 08/11/18 01:15 Temperature 98 F Pulse Rate 76 77 Respiratory Rate 16 16 16 Blood Pressure 127/69 137/87 Pulse Oximetry 97 98 98 08/11/18 01:30 08/11/18 01:45 08/11/18 02:00 Temperature Pulse Rate 76 77 74 Respiratory Rate 16 16 16 Blood Pressure 133/80 135/79 141/77 H Pulse Oximetry 98 97 99 08/11/18 02:15 08/11/18 02:30 08/11/18 02:45 Temperature Pulse Rate 75 85 79 Respiratory Rate 16 17 16 Blood Pressure 143/79 H 163/84 H 148/78 H Pulse Oximetry 98 96 100 08/11/18 03:00 08/11/18 03:15 08/11/18 03:30 Temperature Pulse Rate 78 75 74 Respiratory Rate 16 16 16 Blood Pressure 141/77 H 126/69 122/71 Pulse Oximetry 99 97 97 08/11/18 03:45 08/11/18 04:00 08/11/18 04:06 Temperature 97.9 F Pulse Rate 74 74 Respiratory Rate 16 16 16 Blood Pressure 160/81 H 148/77 H Pulse Oximetry 100 97 96 08/11/18 04:15 08/11/18 04:30 08/11/18 05:00 Temperature Pulse Rate 75 72 72 Respiratory Rate 16 16 16 Blood Pressure 130/70 124/71 136/77 Pulse Oximetry 95 96 97 08/11/18 05:30 08/11/18 06:00 08/11/18 06:30 Temperature Pulse Rate 72 71 75 Respiratory Rate 16 16 16 Blood Pressure 129/69 129/71 168/88 H Pulse Oximetry 95 95 99 08/11/18 07:00 08/11/18 07:27 08/11/18 07:30 Temperature Pulse Rate 75 76 Respiratory Rate 16 16 16 Blood Pressure 156/80 H 164/85 H Pulse Oximetry 95 97 98 08/11/18 08:00 08/11/18 08:30 08/11/18 09:00 Temperature 98.6 F Pulse Rate 76 89 96 H Respiratory Rate 12 23 31 H Blood Pressure 164/83 H 182/89 H 183/88 H Pulse Oximetry 98 97 91 L 08/11/18 09:30 08/11/18 10:00 08/11/18 10:30 Temperature Pulse Rate 93 H 97 H 96 H Respiratory Rate 28 H 24 45 H Blood Pressure 150/79 H 148/79 H 143/79 H Pulse Oximetry 95 95 94 L 08/11/18 11:00 08/11/18 11:30 08/11/18 11:56 Temperature Pulse Rate 98 H 105 H Respiratory Rate 23 44 H 16 Blood Pressure 136/78 158/86 H Pulse Oximetry 96 97 98 08/11/18 12:00 08/11/18 12:30 08/11/18 13:00 Temperature 98.8 F Pulse Rate 94 H 91 H 88 Respiratory Rate 16 16 16 Blood Pressure 129/72 110/68 132/77 Pulse Oximetry 98 96 98 Intake & Output 08/10/18 08/11/18 08/11/18 18:59 06:59 18:59 Intake Total 627 / 627 697 / 697 150 / 150 Output Total 1000 / 1000 1100 / 1100 Balance -373 / -373 -403 / -403 150 / 150 Weight 84.5 kg Intake: IV 350 / 350 450 / 450 150 / 150 Cleviprex Inj 25 mg In 50 ml @ 50 / 50 50 / 50 1 MG/HR 2 mls/hr IV.CONT TITRATE PRN Rx#:[id number] Versed Inj 50 mg In 50 ml @ 2 50 / 50 100 / 100 MG/HR 2 mls/hr IV.CONT TITRATE PRN Rx#:[id number] Diprivan 1000 mg/100 ml Inj 1, 300 / 300 300 / 300 100 / 100 000 mg In 100 ml @ 5 MCG/KG/MIN 2.517 mls/hr IV.CONT TITRATE PRN Rx#:[id number] Oral 0 / 0 Tube Feeding 277 / 277 247 / 247 Output: Urine Amount (Catheter) 1000 / 1000 1100 / 1100 Indwelling Urethral Catheter 1000 / 1000 1100 / 1100 Other: Date of Last Bowel Movement 08/10/18 # Bowel Movements 0 Result Diagrams: 08/11/18 07:26 08/11/18 07:26 Objective Remarks: HEENT/ Neuro: Sedated, orally intubated, No Pallor, no icterus, tongue/ mucosa moist Neck: No JVD Chest/Pulm: on mech vent, good air entry bilaterally, scattered rhonchi, no wheezing or crackles CVS: S1-S2 regular, no murmur GI/abdomen: soft, nontender, bowel sounds sluggish Extremities: warm bilaterally, bilateral pitting edema lower extremities Assessment and Plan - Assessment and Plan Plan: Acute Respiratory failure -Pulmonary edema -Vent bundle -DuoNeb's as needed -Aggressive diuresis -SBT daily Acute on chronic congestive heart failure Diastolic heart failure -Preserved EF 55% on echo in October 2017 -Repeat 2D echo -Troponins negative. -Blood pressure control -Aggressive diuresis with Bumex -Cardiology evaluation Hypertension -Continue home meds Cardura and carvedilol -Spironolactone -Bumex -Cleviprex rather than Cardene (due to volume infusion the patient with severe fluid overload ) drip as needed to keep SBP less than 140 yanira/ Chronic kidney disease -Strict I's and O's -Diuresis -Monitor creatinine and electrolytes levels -Nephrology consulted for worsening creatinine. Workup in progress for proteinuria/elevated creatinine. Hep C antibody reactive -Per patient's patient has tested positive for hep C antibody however has not had any further workup. He has been evaluated by Dr. Marti Sarabia about 1 year ago for GI. We will consult Dr. Sarabia for further evaluation of hep C. Hep C RNA PCR pending DVT GI prophylaxis -Teds SCDs -Subcu heparin -Pepcid 35 minutes of critical care
--- NOTE | 2018-08-11 23:04 | MB ---
cc: Boyd Chadwick MD, Ketul R MD DATE: 08/11/2018 GASTROENTEROLOGY CONSULTATION REASON FOR CONSULTATION: I was asked by Dr. Christian Cross to see patient for evaluation of hepatitis C. HISTORY: The patient is a 57-year-old white male who is currently intubated and he cannot give an adequate history. He apparently had flash pulmonary edema and was intubated rapidly. He also has a history of diastolic heart failure, chronic kidney disease and left ventricular dysfunction. Dr. Sarabia has seen him in the office for abdominal pain in February 2017, and he did an upper endoscopy on him at that time, revealed mild gastritis and duodenitis and a colonoscopy which revealed polyps. Biopsies of the polyps were unremarkable. Biopsies of the stomach were also unremarkable. Apparently in the workup for chronic kidney problems, a hepatitis panel was done. Hepatitis C antibody was positive. A PCR is still pending. Unfortunately, I cannot get other history at this time as the patient is intubated. PAST MEDICAL HISTORY: As mentioned above is diastolic congestive heart failure, left ventricular hypertrophy. He has had chronic kidney disease. He has had hep C which was positive, gastritis, colon polyps. PAST SURGICAL HISTORY: Includes upper endoscopy and colonoscopy, recent gallbladder removal, surgery for hiatal hernia. ALLERGIES: INCLUDE NIFEDIPINE, LOSARTAN, LISINOPRIL, AMLODIPINE, FUROSEMIDE, LATEX. SOCIAL HISTORY: According to the record, no history of smoking or alcohol intake. I am not quite sure intravenous drug abuse or blood transfusions. FAMILY HISTORY: Not available, although according to records, he is adopted. REVIEW OF SYSTEMS: Unobtainable from the patient due to the fact he is intubated. MEDICATIONS: At this time include: 1. Tylenol. 2. Milk of magnesia. 3. DuoNeb. 4. Dulcolax. 5. Bumex. 6. Coreg. 7. Cleviprex. 8. Benadryl. 9. Cardura. 10. Pepcid. 11. Lactulose as needed. 12. Versed as needed. 13. Morphine. 14. Nitroglycerin drip. 15. Diprivan. 16. Erika-Colace. 17. Senokot. 18. Aldactone. PHYSICAL EXAMINATION: VITAL SIGNS: Blood pressure is 120/70, pulse of 79, respiratory rate 16, temperature 99.4. GENERAL: He is a 57-year-old white male resting comfortably on the ventilator. Appears to be in no acute distress. HEENT: His pupils are equal, round, reactive to light. His oropharynx cannot be assessed. Ears cannot be assessed. NECK: Supple. No thyromegaly. LUNGS: With rhonchi at the bases. HEART: Regular rate and rhythm. No murmurs heard. ABDOMEN: Soft and nondistended, nontender. No organomegaly, ascites, or hernias. SKIN: No spider angiomas. EXTREMITIES: No cyanosis or edema. NEUROLOGIC: His cranial nerves could not be assessed. Again, he is intubated. When I touch him he wakes up and looks at me and follows me across the room. LABORATORY DATA: His laboratories revealed a hemoglobin initially of 10.0 with a hematocrit 30.9. White blood cell count of 16,600, MCV of 90.6, platelet count 248,000. The hemoglobin dropped to 8.1, 8.8 and today is 9.7 with a white blood cell count of 7400, hematocrit 39.1, platelet count 322,000. His coagulation panel revealed a prothrombin time of 10, INR 1.0, PTT of 25.9. Chemistries revealed potassium 4.1, BUN of 50, creatinine 2.4, it was elevated. SGOT 23, total bilirubin 0.2, SGPT 22, alkaline phosphatase is 85. His albumin was low at 1.8, total protein low at 5.8. His acute hepatitis panel showed hep A IgM antibody negative, hepatitis B surface antigen is negative. Hepatitis B core IgM is positive. Hepatitis C IgG antibody is reactive, hepatitis C by PCR is pending. HIV is negative. Chest x-ray shows pulmonary edema. IMPRESSION: 1. Hepatitis C antibody positivity - as an antibody test. It does not necessarily mean he has hepatitis C. It could be he was exposed to it or a false positive exam. A PCR is a more sensitive test and is currently pending. 2. History of colon polyps. 3. History of gastritis, minimal. He is currently on an H2 hernandez and this should do well. 4. Flash pulmonary edema with respiratory failure. RECOMMENDATIONS: 1. Await PCR. 2. Proceed with ultrasound of abdomen. 3. Further recommendations after the PCR comes back. If the PCR is positive, he would need treatment, but obviously he has to be a lot more stable than he is now for his treatment. He may need liver biopsy also, but I am going to defer everything until the PCR comes back and also until he is more stable, but will do ultrasound to start the process. MD DURAN Oshea/emelyn , 09:28 PM , 09:43 PM
[2018-08-11] MEDS ORDERED: Albumin Human 5% Inj 500 ML IV.SIG SCH (23:45)
[2018-08-12] MEDS: Clevidipine Inj 25 MG/50 ML VIAL IV.CONT PRN ×4 (02:08→22:57)
[2018-08-12] MEDS: Oral Hygiene Kit OROPHARYNG SCH ×3 (04:10→17:00)
[2018-08-12] MEDS: Propofol 1000 mg/100 ml Inj 1,000 MG/100 ML BOTTLE IV.CONT PRN ×2 (04:10→07:46)
[2018-08-12] MEDS: Chlorhexidine Gluconate 2% 1 Pack (2 Cloths) TOPICAL SCH (04:10)
[2018-08-12 05:29] LABS: Hematocrit 29.6 % (39.0-51.0); Hemoglobin 9.6 gm/dL (13.0-17.0); Mean Corpuscular HGB Conc 32.5 % (32.0-36.0); Mean Corpuscular Hemoglobin 29.3 pg (27.0-34.0); Mean Platelet Volume 9.5 fL (7.0-11.0); Platelet Count 336 th/mm3 (150-450); Red Blood Count 3.29 mil/mm3 (4.50-5.90); Red Cell Distribution Width 13.6 % (11.6-17.2); White Blood Count 11.1 th/mm3 (4.0-11.0)
[2018-08-12] MEDS: Heparin - SQ 10,000 UNITS/ML Vial SQ SCH ×3 (05:31→21:28)
[2018-08-12] MEDS: Midazolam 50 MG/50 ML Inj 50 MG/50 ML BAG IV.CONT PRN (05:32)
[2018-08-12 05:53] LABS: Albumin 1.8 g/dL (3.4-5.0); Anion Gap 11 meq/L (5-15); Aspartate Aminotransferase 23 U/L (15-37); Blood Urea Nitrogen 47 mg/dL (7-18); Carbon Dioxide 24.2 meq/L (21.0-32.0); Chloride 107 meq/L (98-107); Glomerular Filtration Rate 29 mL/min (>89); Glucose,Random 104 mg/dL (74-106); Magnesium 2.1 mg/dL (1.5-2.5); Potassium 4.5 meq/L (3.5-5.1); Sodium 142 meq/L (136-145)
[2018-08-12 05:56] LABS: Alanine Aminotransferase 23 U/L (12-78); Alkaline Phosphatase 98 U/L (45-117); Phosphorus 5.7 mg/dL (2.5-4.9); Total Protein 6.5 g/dL (6.4-8.2)
[2018-08-12] MEDS: Acetaminophen 325 MG Tablet PO PRN ×2 (07:47→16:43)
[2018-08-12] MEDS: Famotidine PF Inj 20 MG/2 ML Vial IV.PUSH SCH ×2 (08:17→21:29)
[2018-08-12] MEDS: Carvedilol 12.5 MG Tablet PO SCH ×2 (08:17→21:29)
[2018-08-12] MEDS: Spironolactone 50 MG Tablet PO SCH (08:17)
[2018-08-12] MEDS: Doxazosin 4 MG Tablet PO SCH (08:17)
[2018-08-12] MEDS: Chlorhexidine 0.12% Oral Kit 15 ML UDC OROPHARYNG SCH ×2 (08:18→19:02)
[2018-08-12] MEDS: Senna/Docusate Sodium 8.6/50 MG Tablet PO SCH ×2 (08:18→21:29)
--- NOTE | 2018-08-12 08:29 | XR ---
EXAM DATE: 08/12/2018 7:14 AM EDT AGE/SEX: 57 years / Male INDICATIONS: Short of breath. CLINICAL DATA: This is the patient's subsequent encounter. Patient reports that signs and symptoms h ave been present for 3 days and indicates a pain score of Nonresponsive. MEDICAL/SURGICAL HISTORY: . Chronic kidney disease. Congestive heart failure. Hypertension. . Cholecystectomy. COMPARISON: . FINDINGS: Stable ETT and NGT. Persistent hazy opacity in the left lower lung zone likely reflecting combination of small pleural effusion and airspace consolidation. Improved aeration in the right lower lung zone . Cardiac silhouette is within normal limits. Central pulmonary vascularity is slightly indistinct. R emainder of the exam is unchanged. CONCLUSION: 1. Stable ETT and NGT. 2. Persistent small left pleural effusion and associated left lower lobe airspace consolidation. 3. Improved aeration of the right lower lung zone. Electronically signed by: Horacio Echevarria MD 08/12/2018 8:27 AM EDT
--- NOTE | 2018-08-12 09:33 | P.PNCC ---
Subjective Subjective Remarks/Hospital Course: 08/09: 57-year-old male with history of diastolic heart failure and preserved ejection fraction of 55% on last echo in October 2017 came to the emergency room brought in by EMS for acute respiratory distress, intubated at the scene. 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 His blood pressure initially upon their arrival was 236 systolic. Patient was given nitro sublingual spray and Lasix. They put a CPAP on him but patient did not tolerated well. At that point the decision was made to intubate him. Patient was given IV etomidate and Versed followed by intubation. Per patient's family at the bedside he had a cholecystectomy done a week ago and since then his blood pressure was poorly controlled as well as worsening of her peripheral edema. The patient has a history of allergic reaction to Lasix with a generalized body rash. 08/10: Remains sedated, orally intubated on mechanical ventilation. Not much urine output with Bumex. Creatinine increasing. 08/11: Sedated, arousable, orally intubated on mechanical ventilation. Failed CPAP trial today. Diuresed with Bumex. 08/12: Sedated, arousable, orally intubated on mechanical ventilation. Spiked fevers this morning. Sputum cultures ordered yesterday, blood cultures, UA urine cultures ordered. Starting empiric antibiotic coverage with IV cefepime and p.o. Flagyl. Objective Vital Signs / I&O: Vital Signs 08/11/18 09:30 08/11/18 10:00 08/11/18 10:30 Temperature Pulse Rate 93 H 97 H 96 H Respiratory Rate 28 H 24 45 H Blood Pressure 150/79 H 148/79 H 143/79 H Pulse Oximetry 95 95 94 L 08/11/18 11:00 08/11/18 11:30 08/11/18 11:56 Temperature Pulse Rate 98 H 105 H Respiratory Rate 23 44 H 16 Blood Pressure 136/78 158/86 H Pulse Oximetry 96 97 98 08/11/18 12:00 08/11/18 12:30 08/11/18 13:00 Temperature 98.8 F Pulse Rate 94 H 91 H 88 Respiratory Rate 16 16 16 Blood Pressure 129/72 110/68 132/77 Pulse Oximetry 98 96 98 08/11/18 13:30 08/11/18 14:00 08/11/18 14:30 Temperature Pulse Rate 85 86 84 Respiratory Rate 16 16 16 Blood Pressure 124/73 133/78 124/70 Pulse Oximetry 98 100 99 08/11/18 15:00 08/11/18 15:30 08/11/18 15:46 Temperature Pulse Rate 83 85 Respiratory Rate 16 16 16 Blood Pressure 133/71 124/68 Pulse Oximetry 100 98 97 08/11/18 16:00 08/11/18 16:15 08/11/18 16:30 Temperature 98.9 F Pulse Rate 85 81 80 Respiratory Rate 16 16 16 Blood Pressure 103/59 L 135/73 132/72 Pulse Oximetry 97 100 99 08/11/18 16:44 08/11/18 16:45 08/11/18 18:00 Temperature Pulse Rate 79 75 Respiratory Rate 16 Blood Pressure 128/70 Pulse Oximetry 98 08/11/18 20:00 08/11/18 20:06 08/11/18 22:00 Temperature 99.4 F Pulse Rate 77 78 Respiratory Rate 16 16 Blood Pressure 144/78 H Pulse Oximetry 100 100 08/11/18 23:29 08/12/18 00:00 08/12/18 02:00 Temperature 100 F H Pulse Rate 82 88 Respiratory Rate 17 16 Blood Pressure 143/76 H Pulse Oximetry 100 100 08/12/18 03:00 08/12/18 03:15 08/12/18 03:30 Temperature Pulse Rate 80 78 76 Respiratory Rate 16 16 16 Blood Pressure 144/71 H 129/67 128/67 Pulse Oximetry 100 100 100 08/12/18 03:51 08/12/18 03:53 08/12/18 04:00 Temperature 100.5 F H Pulse Rate 87 86 Respiratory Rate 20 17 17 Blood Pressure 161/77 H 155/74 H Pulse Oximetry 97 100 100 08/12/18 04:15 08/12/18 04:45 08/12/18 05:00 Temperature Pulse Rate 87 92 H 93 H Respiratory Rate 18 23 17 Blood Pressure 167/73 H 157/74 H 158/76 H Pulse Oximetry 100 99 100 08/12/18 05:15 08/12/18 05:30 08/12/18 05:45 Temperature Pulse Rate 90 84 83 Respiratory Rate 16 16 16 Blood Pressure 150/73 H 145/69 H 132/64 Pulse Oximetry 100 100 99 08/12/18 06:00 08/12/18 06:19 08/12/18 06:30 Temperature Pulse Rate 80 95 H 95 H Respiratory Rate 16 22 20 Blood Pressure 132/66 168/79 H 161/92 H Pulse Oximetry 99 100 100 08/12/18 06:45 08/12/18 07:00 08/12/18 07:15 Temperature Pulse Rate 99 H 97 H 90 Respiratory Rate 22 19 16 Blood Pressure 173/95 H 158/83 H 154/72 H Pulse Oximetry 100 98 98 08/12/18 07:30 08/12/18 07:45 08/12/18 08:00 Temperature 101.3 F H Pulse Rate 89 86 89 Respiratory Rate 16 16 17 Blood Pressure 146/70 H 149/72 H 147/75 H Pulse Oximetry 97 99 100 08/12/18 08:12 08/12/18 08:15 08/12/18 08:30 Temperature Pulse Rate 92 H 89 Respiratory Rate 18 16 16 Blood Pressure 158/77 H 150/72 H Pulse Oximetry 100 100 99 08/12/18 08:45 08/12/18 09:00 08/12/18 09:15 Temperature Pulse Rate 91 H 86 85 Respiratory Rate 16 16 20 Blood Pressure 150/74 H 142/71 H 138/70 Pulse Oximetry 98 100 100 Intake & Output 08/11/18 08/12/18 08/12/18 18:59 06:59 18:59 Intake Total 496 / 496 629 / 629 150 / 150 Output Total 1650 / 1650 1450 / 1450 Balance -1154 / -1154 -821 / -821 150 / 150 Weight 83 kg Intake: IV 300 / 300 450 / 450 150 / 150 Cleviprex Inj 25 mg In 50 ml @ 100 / 100 50 / 50 50 / 50 1 MG/HR 2 mls/hr IV.CONT TITRATE PRN Rx#:[id number] Versed Inj 50 mg In 50 ml @ 2 100 / 100 MG/HR 2 mls/hr IV.CONT TITRATE PRN Rx#:[id number] Diprivan 1000 mg/100 ml Inj 1, 200 / 200 300 / 300 100 / 100 000 mg In 100 ml @ 5 MCG/KG/MIN 2.517 mls/hr IV.CONT TITRATE PRN Rx#:[id number] Tube Feeding 196 / 196 179 / 179 Output: Urine Amount (Catheter) 1650 / 1650 1450 / 1450 Indwelling Urethral Catheter 1650 / 1650 1450 / 1450 Other: Date of Last Bowel Movement 08/12/18 08/12/18 # Bowel Movements 0 # Incontinent Bowel Movements 1 Result Diagrams: 08/12/18 04:27 08/12/18 04:27 Imaging: Chest X-Ray 08/09/18 04:18 CONCLUSION: 1. Bilateral airspace disease. 2. Endotracheal tube 6.5 cm above the navneet. 3. Small right pleural effusion. Abdomen/Bladder Ultrasound 08/10/18 00:00 CONCLUSION: 1. Echogenic kidneys consistent with medical renal disease. 2. No sonographic evidence for obstructive uropathy. 3. Trace ascites. 4. Small left pleural effusion. Chest X-Ray 08/10/18 10:00 CONCLUSION: Interval improvement in apparent pulmonary edema. Chest X-Ray 08/12/18 07:14 CONCLUSION: 1. Stable ETT and NGT. 2. Persistent small left pleural effusion and associated left lower lobe airspace consolidation. 3. Improved aeration of the right lower lung zone. Objective Remarks: HEENT/ Neuro: Sedated, orally intubated, No Pallor, no icterus, tongue/ mucosa moist Neck: No JVD Chest/Pulm: on mech vent, good air entry bilaterally, scattered rhonchi, no wheezing or crackles CVS: S1-S2 regular, no murmur GI/abdomen: soft, nontender, bowel sounds sluggish Extremities: warm bilaterally, bilateral pitting edema lower extremities Assessment and Plan - Assessment and Plan Plan: Acute Respiratory failure Pulmonary edema Pneumonia -Vent bundle -DuoNeb's as needed -Aggressive diuresis -SBT daily Acute on chronic congestive heart failure Diastolic heart failure -Preserved EF 55% on echo in October 2017 -Repeat 2D echo results noted -Troponins negative. -Blood pressure control -diuresis with Bumex -Cardiology following Sepsis Pneumonia -Follow-up cultures. -Starting empiric antibiotic coverage with IV cefepime/p.o. Flagyl on 08/12 -Chest x-ray with bibasilar infiltrates. Hypertension -Continue home meds Cardura and carvedilol -Spironolactone -Bumex -Cleviprex rather than Cardene (due to volume infusion the patient with severe fluid overload ) drip as needed to keep SBP less than 140 yanira/ Chronic kidney disease -Strict I's and O's -Diuresis -Monitor creatinine and electrolytes levels -Nephrology consulted for worsening creatinine. Workup in progress for proteinuria/elevated creatinine. Hep C antibody reactive -Per patient's patient has tested positive for hep C antibody however has not had any further workup. He has been evaluated by Dr. Marti Sarabia about 1 year ago for GI. Hep C RNA PCR pending. GI consult noted DVT GI prophylaxis -Teds SCDs -Subcu heparin -Pepcid Updated patient's regarding current clinical status and plan of care and she voiced understanding and was agreeable. 35 minutes of critical care
[2018-08-12 09:42] LABS: Bacteria,Urine Few /hpf; Bilirubin,Urine Negative (Negative); Clarity,Urine Hazy (Clear); Color,Urine Yellow (Yellw/Straw); Glucose,Urine (UA) Negative (Negative); Hyaline Casts,Urine 37 /lpf (0-3); Leukocyte Esterase,Urine Trace (Negative); Mucus,Urine Few /lpf (Occasional); Nitrite,Urine Negative (Negative); Specific Gravity,Urine 1.013 (1.002-1.035); Squamous Epithelial Cell,Urine <1 /hpf (0-5)
[2018-08-12] MEDS: metroNIDAZOLE 500 MG Tablet NG/OG SCH ×2 (10:11→18:04)
--- NOTE | 2018-08-12 11:10 | US ---
EXAM DATE: 08/12/2018 12:00 AM EDT AGE/SEX: 57 years / Male INDICATIONS: Hepatitis C. CLINICAL DATA: This is the patient's subsequent encounter. Patient reports that signs and symptoms h ave been present for 1 day and indicates a pain score of Nonresponsive. MEDICAL/SURGICAL HISTORY: Hepatitis C. Cholecystectomy. COMPARISON: No prior exams available for comparison. MEASUREMENTS: Liver:__ 20.6 cm. Common Bile Duct:__ 5mm. Right Kidney:__ 14.9 x 4.9 x cm. FINDINGS: Liver: Normal echotexture without focal lesion or ductal dilatation. Portal Vein: Hepatopedal flow seen in portal vein. Common Duct: No intraluminal mass or stone visualized. Gallbladder: Surgically absent. There is fluid collection within the gallbladder fossa measures 4.7 x 1.7 x 1.9 cm in size. Small bilateral pleural effusions are present and is a trace of fluid in the peritoneal cavity adjacent to liver. Pancreas: The visualized portions are within normal limits Right Kidney: Increased echotexture. No solid mass or hydronephrosis. There is a small cyst in the r ight kidney measures 2.1 cm upper pole. Other: Slight splenomegaly is present with spleen measuring 15.9 cm in craniocaudal dimension wit hout focal lesions or technique. CONCLUSION: 1. Slight hepatosplenomegaly. 2. Small bilateral pleural effusions and a trace of fluid in the upper peritoneal cavity around the liver. 3. Fluid collection within gallbladder fossa of uncertain etiology nonspecific and most likely posts urgical changes, however possibility of bile leak or infectious etiologies are not excluded. Electronically signed by: Edward Galvan MD 08/12/2018 11:09 AM EDT
--- NOTE | 2018-08-12 14:35 | P.PNCA ---
Subjective Interval history: Patient intubated and sedated. Patient does open eyes with verbal stimulation. Patient does not appear to be in any acute distress. Medications and Allergies Allergies Allergy/AdvReac Type Severity Reaction Status Date / Time furosemide Allergy Severe Rash Verified 10/30/17 07:10 amlodipine [From Norvasc] Allergy Swelling Verified 08/09/18 07:41 lisinopril Allergy Cough Verified 08/09/18 07:41 losartan Allergy Rash, Verified 08/09/18 07:41 Localized nifedipine [From Procardia] Allergy Swelling Verified 08/09/18 07:41 Home Medications Medication Instructions Recorded Confirmed Type carvedilol 25 mg PO BID 08/09/18 08/09/18 History doxazosin [Cardura] 4 mg PO DAILY 08/09/18 08/09/18 History omeprazole 40 mg PO DAILY 08/09/18 08/09/18 History spironolactone [Aldactone] 50 mg PO DAILY 08/09/18 08/09/18 History Active Medications: Active Medications Acetaminophen (Tylenol) 650 mg PO Q6H PRN PRN Reason: PAIN 1-10 AND/OR FEVER >101F Last Admin: 08/12/18 07:47 Dose: 650 mg Al Hydroxide/Mg Hydroxide (Milk Of Shin Romo) 30 ml PO Q12H PRN PRN Reason: Mild Constipation Albuterol (Duoneb Neb (Prn)) 1 ampul NEB Q2HR NEB PRN PRN Reason: WHEEZING Bisacodyl (Dulcolax Supp) 10 mg RECTAL DAILY PRN PRN Reason: SEVERE CONSITIPATION Bumetanide (Bumex Inj) 1 mg IV.PUSH Q6HR [facility] [place] Last Admin: 08/12/18 12:14 Dose: 1 mg Carvedilol (Coreg) 25 mg PO BID [facility] [place] Last Admin: 08/12/18 08:17 Dose: 25 mg Chlorhexidine Gluconate (Peridex 0.12% Oral Kit) 15 ml OROPHARYNG BID@0800, 2000 [facility] [place] Last Admin: 08/12/18 08:18 Dose: 15 ml Chlorhexidine Gluconate (Chlorhexidine 2% Cloth) 3 pack TOPICAL DAILY@0400 [facility] [place] Stop: 08/15/18 03:59 Last Admin: 08/12/18 04:10 Dose: 3 pack Chlorhexidine Gluconate (Chlorhexidine 2% Cloth) 3 pack TOPICAL DAILY@0400 PRN PRN Reason: Extra cloth needed Stop: 08/15/18 03:59 Diphenhydramine HCl (Benadryl Liq) 25 mg NG/OG Q4H PRN PRN Reason: RASH Doxazosin Mesylate (Cardura) 4 mg PO DAILY [facility] [place] Last Admin: 08/12/18 08:17 Dose: 4 mg Famotidine (Pepcid Pf Inj) 10 mg IV.PUSH Q12HR [facility] [place] Last Admin: 08/12/18 08:17 Dose: 10 mg Heparin Sodium (Porcine) (Heparin Inj) 5,000 units SQ Q8H [facility] [place] Last Admin: 08/12/18 05:31 Dose: 5,000 units Midazolam HCl (Versed Inj) 50 mg in 50 mls @ 2 mls/hr IV.CONT TITRATE PRN; Protocol PRN Reason: Per Protocol Last Admin: 08/12/18 05:32 Dose: 5 mg/hr, 5 mls/hr Nitroglycerin/Dextrose (Nitroglycerin Drip Premix) 50 mg in 250 mls @ 0 mls/hr IV.CONT TITRATE PRN; Protocol PRN Reason: Per Protocol Last Titration: 08/09/18 14:00 Dose: 0 mcg/min, 0 mls/hr Propofol (Diprivan 1000 Mg/100 Ml Inj) 1,000 mg in 100 mls @ 2.517 mls/hr IV.CONT TITRATE PRN; Protocol PRN Reason: Per Protocol Last Admin: 08/12/18 07:46 Dose: 50 mcg/kg/min, 25.18 mls/hr Clevidipine (Cleviprex Inj) 25 mg in 50 mls @ 2 mls/hr IV.CONT TITRATE PRN; Protocol PRN Reason: Per protocol Last Admin: 08/12/18 08:40 Dose: 3 mg/hr, 6 mls/hr Cefepime HCl 1,000 mg/ Sodium (Chloride) 100 mls @ 200 mls/hr IV.SIG Q8H [facility] [place] Last Admin: 08/12/18 10:11 Dose: 200 mls/hr Lactulose (Lactulose Liq) 30 ml PO DAILY PRN PRN Reason: SEVERE CONSITIPATION Metronidazole (Flagyl) 500 mg NG/OG Q8H [facility] [place] Last Admin: 08/12/18 10:11 Dose: 500 mg Midazolam HCl (Versed Inj) 2 mg IV.PUSH Q1H PRN PRN Reason: SEDATION Miscellaneous Medication () 1 each OROPHARYNG 0000,0400,1200,1600 [facility] [place] Last Admin: 08/12/18 04:10 Dose: 1 each Morphine Sulfate (Morphine Inj) 2 mg IV.PUSH Q2H PRN PRN Reason: PAIN SCALE 6 TO 10 Ondansetron HCl (Zofran Inj) 4 mg IV.PUSH Q6H PRN PRN Reason: NAUSEA OR VOMITING Senna/Docusate Sodium (Erika-Colace) 1 tab PO BID [facility] [place] Last Admin: 08/12/18 08:18 Dose: Not Given Sennosides (Senokot) 17.2 mg PO Q12H PRN PRN Reason: Moderate Constipation Sodium Chloride (Ns Flush) 2 ml IV.FLUSH BID [facility] [place] Last Admin: 08/12/18 08:17 Dose: 2 ml Sodium Chloride (Ns Flush) 2 ml IV.FLUSH PRN PRN PRN Reason: FLUSH AFTER USING IV ACCESS Spironolactone (Aldactone) 50 mg PO DAILY [facility] [place] Last Admin: 08/12/18 08:17 Dose: 50 mg Physical Exam Vital signs: Vital Signs 08/11/18 14:30 08/11/18 15:00 08/11/18 15:30 Temperature Pulse Rate 84 83 85 Respiratory Rate 16 16 16 Blood Pressure 124/70 133/71 124/68 Pulse Oximetry 99 100 98 08/11/18 15:46 08/11/18 16:00 08/11/18 16:15 Temperature 98.9 F Pulse Rate 85 81 Respiratory Rate 16 16 16 Blood Pressure 103/59 L 135/73 Pulse Oximetry 97 97 100 08/11/18 16:30 08/11/18 16:44 08/11/18 16:45 Temperature Pulse Rate 80 79 Respiratory Rate 16 16 Blood Pressure 132/72 128/70 Pulse Oximetry 99 98 08/11/18 18:00 08/11/18 20:00 08/11/18 20:06 Temperature 99.4 F Pulse Rate 75 77 Respiratory Rate 16 16 Blood Pressure 144/78 H Pulse Oximetry 100 100 08/11/18 22:00 08/11/18 23:29 08/12/18 00:00 Temperature 100 F H Pulse Rate 78 82 Respiratory Rate 17 16 Blood Pressure 143/76 H Pulse Oximetry 100 100 08/12/18 02:00 08/12/18 03:00 08/12/18 03:15 Temperature Pulse Rate 88 80 78 Respiratory Rate 16 16 Blood Pressure 144/71 H 129/67 Pulse Oximetry 100 100 08/12/18 03:30 08/12/18 03:51 08/12/18 03:53 Temperature Pulse Rate 76 87 Respiratory Rate 16 20 17 Blood Pressure 128/67 161/77 H Pulse Oximetry 100 97 100 08/12/18 04:00 08/12/18 04:15 08/12/18 04:45 Temperature 100.5 F H Pulse Rate 86 87 92 H Respiratory Rate 17 18 23 Blood Pressure 155/74 H 167/73 H 157/74 H Pulse Oximetry 100 100 99 08/12/18 05:00 08/12/18 05:15 08/12/18 05:30 Temperature Pulse Rate 93 H 90 84 Respiratory Rate 17 16 16 Blood Pressure 158/76 H 150/73 H 145/69 H Pulse Oximetry 100 100 100 08/12/18 05:45 08/12/18 06:00 08/12/18 06:19 Temperature Pulse Rate 83 80 95 H Respiratory Rate 16 16 22 Blood Pressure 132/64 132/66 168/79 H Pulse Oximetry 99 99 100 08/12/18 06:30 08/12/18 06:45 08/12/18 07:00 Temperature Pulse Rate 95 H 99 H 97 H Respiratory Rate 20 22 19 Blood Pressure 161/92 H 173/95 H 158/83 H Pulse Oximetry 100 100 98 08/12/18 07:15 08/12/18 07:30 08/12/18 07:45 Temperature Pulse Rate 90 89 86 Respiratory Rate 16 16 16 Blood Pressure 154/72 H 146/70 H 149/72 H Pulse Oximetry 98 97 99 08/12/18 08:00 08/12/18 08:12 08/12/18 08:15 Temperature 101.3 F H Pulse Rate 76 92 H Respiratory Rate 17 18 16 Blood Pressure 147/75 H 158/77 H Pulse Oximetry 100 100 100 08/12/18 08:30 08/12/18 08:45 08/12/18 09:00 Temperature Pulse Rate 89 91 H 86 Respiratory Rate 16 16 16 Blood Pressure 150/72 H 150/74 H 142/71 H Pulse Oximetry 99 98 100 08/12/18 09:15 08/12/18 09:30 08/12/18 09:45 Temperature Pulse Rate 85 85 90 Respiratory Rate 20 15 24 Blood Pressure 138/70 142/68 H 144/70 H Pulse Oximetry 100 99 99 08/12/18 10:00 08/12/18 10:15 08/12/18 10:30 Temperature Pulse Rate 92 H 93 H 97 H Respiratory Rate 23 36 H 20 Blood Pressure 143/72 H 142/73 H 143/80 H Pulse Oximetry 99 99 99 08/12/18 10:45 08/12/18 11:00 08/12/18 11:14 Temperature Pulse Rate 96 H 92 H Respiratory Rate 24 27 H 20 Blood Pressure 142/80 H 139/73 Pulse Oximetry 98 99 99 08/12/18 11:15 08/12/18 11:30 08/12/18 11:45 Temperature Pulse Rate 91 H 92 H 93 H Respiratory Rate 29 H 20 25 H Blood Pressure 147/74 H 139/69 138/68 Pulse Oximetry 100 99 100 08/12/18 12:00 08/12/18 12:15 08/12/18 12:37 Temperature 99.3 F Pulse Rate 96 H 102 H 112 H Respiratory Rate 31 H 39 H 42 H Blood Pressure 146/73 H 173/81 H 174/84 H Pulse Oximetry 98 98 99 08/12/18 12:45 08/12/18 13:00 08/12/18 13:09 Temperature Pulse Rate 114 H 112 H Respiratory Rate 25 H 23 Blood Pressure 178/85 H 166/82 H Pulse Oximetry 97 98 95 08/12/18 13:15 08/12/18 13:30 08/12/18 13:45 Temperature Pulse Rate 103 H 104 H 100 H Respiratory Rate 19 16 13 Blood Pressure 161/79 H 156/73 H 151/76 H Pulse Oximetry 96 96 97 08/12/18 14:00 Temperature Pulse Rate 100 H Respiratory Rate Blood Pressure Pulse Oximetry Intake & Output 08/11/18 08/12/18 08/12/18 18:59 06:59 18:59 Intake Total 496 / 496 629 / 629 150 / 150 Output Total 1650 / 1650 1450 / 1450 Balance -1154 / -1154 -821 / -821 150 / 150 Weight 83 kg Intake: IV 300 / 300 450 / 450 150 / 150 Cleviprex Inj 25 mg In 50 ml @ 100 / 100 50 / 50 50 / 50 1 MG/HR 2 mls/hr IV.CONT TITRATE PRN Rx#:[id number] Versed Inj 50 mg In 50 ml @ 2 100 / 100 MG/HR 2 mls/hr IV.CONT TITRATE PRN Rx#:[id number] Diprivan 1000 mg/100 ml Inj 1, 200 / 200 300 / 300 100 / 100 000 mg In 100 ml @ 5 MCG/KG/MIN 2.517 mls/hr IV.CONT TITRATE PRN Rx#:[id number] Tube Feeding 196 / 196 179 / 179 Output: Urine Amount (Catheter) 1650 / 1650 1450 / 1450 Indwelling Urethral Catheter 1650 / 1650 1450 / 1450 Other: Date of Last Bowel Movement 08/12/18 08/12/18 # Bowel Movements 0 # Incontinent Bowel Movements 1 - Constitutional no acute distress - Routine HEENT Exam Head: Present: normocephalic Eye: Present: PERRL ENT: Present: mucous membranes moist - Routine Neck Exam Present: supple - Routine Respiratory Exam Present: rhonchi - Routine Cardiovascular Exam Present: S1, S2 - Routine Abdominal Exam Present: soft, normoactive bowel sounds - Routine Extremities Exam Present: edema, pulses intact, normal capillary refill. Absent: cyanosis, clubbing - Routine Skin Exam Present: intact. Absent: cyanosis, erythema - Routine Neurological Exam Patient intubated and sedated. Does attempt to open eyes with verbal stimulation. - Detailed Neurological Exam: Coma Scale Eye Opening: To sound Verbal Response: None Motor Response: None Paula Coma Scale Total: 5 - Routine Psychiatric Exam Present: unable to assess - Urinary Catheter Management Indwelling Urethral Catheter Cath placed during this visit: yes Reason for continuing: Hourly intake/output Insertion date: 08/09/18 Insertion time: 04:48 Results 08/12/18 04:27 08/12/18 04:27 Cardiac Enzymes 08/11/18 08/12/18 Range/Units 07:26 04:27 AST 23 23 (15-37) U/L CBC 08/11/18 08/12/18 Range/Units 07:26 04:27 WBC 7.4 11.1 H (4.0-11.0) th/mm3 RBC 3.22 L 3.29 L (4.50-5.90) mil/mm3 Hgb 9.7 L 9.6 L (13.0-17.0) gm/dL Hct 29.1 L 29.6 L (39.0-51.0) % Plt Count 322 336 (150-450) th/mm3 Comprehensive Metabolic Panel 08/11/18 08/12/18 Range/Units 07:26 04:27 Sodium 141 142 (136-145) meq/L Potassium 4.1 4.5 (3.5-5.1) meq/L Chloride 107 107 (98-107) meq/L Carbon Dioxide 24.4 24.2 (21.0-32.0) meq/L BUN 50 H 47 H (7-18) mg/dL Creatinine 2.41 H 2.31 H (0.60-1.30) mg/dL Calcium 7.9 L 8.0 L (8.5-10.1) mg/dL AST 23 23 (15-37) U/L ALT 22 23 (12-78) U/L Alkaline Phosphatase 85 98 (45-117) U/L Total Protein 5.8 L D 6.5 D (6.4-8.2) g/dL Albumin 1.8 L 1.8 L (3.4-5.0) g/dL Intake and Output 08/11/18 08/12/18 08/12/18 22:59 06:59 14:59 Intake Total 496 / 496 479 / 479 150 / 150 Output Total 1650 / 1650 1450 / 1450 Balance -1154 / -1154 -971 / -971 150 / 150 Intake: IV 300 / 300 300 / 300 150 / 150 Cleviprex Inj 25 mg In 50 ml @ 50 / 50 50 / 50 50 / 50 1 MG/HR 2 mls/hr IV.CONT TITRATE PRN Rx#:[id number] Versed Inj 50 mg In 50 ml @ 2 50 / 50 50 / 50 MG/HR 2 mls/hr IV.CONT TITRATE PRN Rx#:[id number] Diprivan 1000 mg/100 ml Inj 1, 200 / 200 200 / 200 100 / 100 000 mg In 100 ml @ 5 MCG/KG/MIN 2.517 mls/hr IV.CONT TITRATE PRN Rx#:[id number] Tube Feeding 196 / 196 179 / 179 Output: Urine Amount (Catheter) 1650 / 1650 1450 / 1450 Indwelling Urethral Catheter 1650 / 1650 1450 / 1450 Other: Date of Last Bowel Movement 08/10/18 08/12/18 08/12/18 # Bowel Movements 0 # Incontinent Bowel Movements 1 Weight 83 kg - Imaging and Cardiology Imaging: Impressions Abdomen/Bladder Ultrasound 08/10/18 00:00 CONCLUSION: 1. Echogenic kidneys consistent with medical renal disease. 2. No sonographic evidence for obstructive uropathy. 3. Trace ascites. 4. Small left pleural effusion. Liver Ultrasound 08/12/18 00:00 CONCLUSION: 1. Slight hepatosplenomegaly. 2. Small bilateral pleural effusions and a trace of fluid in the upper peritoneal cavity around the liver. 3. Fluid collection within gallbladder fossa of uncertain etiology nonspecific and most likely postsurgical changes, however possibility of bile leak or infectious etiologies are not excluded. Chest X-Ray 08/12/18 07:14 CONCLUSION: 1. Stable ETT and NGT. 2. Persistent small left pleural effusion and associated left lower lobe airspace consolidation. 3. Improved aeration of the right lower lung zone. Assessment and Plan - Assessment (1) Diastolic CHF Code(s): I50.30 - Unspecified diastolic (congestive) heart failure Status: Acute (2) Hypertension Code(s): I10 - Essential (primary) hypertension Status: Acute (3) Respiratory failure Code(s): J96.90 - Respiratory failure, unspecified, unspecified whether with hypoxia or hypercapnia Status: Acute (4) Left ventricular diastolic dysfunction Code(s): I51.9 - Heart disease, unspecified Status: Acute - Plan Patient having left ventricular diastolic dysfunction secondary to hypertensive heart disease. Continue current tx for CHF. Patient continues to be hypertensive, continue to titrate medications for blood pressure control. Patient positive for Hep C IgG, liver US being performed. Patient currently being worked up for possible pneumonia. Now successfully extubated. Continue ICU care. D/w pt's . Patient to follow up with Dr. Cook after discharge. Patient was seen and evaluated by Dr. Isaacs who participated in care, management and decision making. - Attending Attestation Patient seen and examined. I reviewed and agree with the evaluation and plan as presented. Extubated today. Continue BP control. D/w pt's .
[2018-08-12] MEDS ORDERED: Labetalol HCl Inj 100 MG/20 ML Vial ONE (15:05)
--- NOTE | 2018-08-12 15:27 | P.PNGI ---
Subjective Interval history: Patient now extubated and can answer simple questions. His is at bedside. Reviewed ultrasound with her. PCR still pending. No nausea, vomiting, abdominal pain or diarrhea Physical Exam Vital signs: Vital Signs 08/11/18 15:30 08/11/18 15:46 08/11/18 16:00 Temperature 98.9 F Pulse Rate 85 85 Respiratory Rate 16 16 16 Blood Pressure 124/68 103/59 L Pulse Oximetry 98 97 97 08/11/18 16:15 08/11/18 16:30 08/11/18 16:44 Temperature Pulse Rate 81 80 79 Respiratory Rate 16 16 16 Blood Pressure 135/73 132/72 Pulse Oximetry 100 99 98 08/11/18 16:45 08/11/18 18:00 08/11/18 20:00 Temperature 99.4 F Pulse Rate 75 77 Respiratory Rate 16 Blood Pressure 128/70 144/78 H Pulse Oximetry 100 08/11/18 20:06 08/11/18 22:00 08/11/18 23:29 Temperature Pulse Rate 78 Respiratory Rate 16 17 Blood Pressure Pulse Oximetry 100 100 08/12/18 00:00 08/12/18 02:00 08/12/18 03:00 Temperature 100 F H Pulse Rate 82 88 80 Respiratory Rate 16 16 Blood Pressure 143/76 H 144/71 H Pulse Oximetry 100 100 08/12/18 03:15 08/12/18 03:30 08/12/18 03:51 Temperature Pulse Rate 78 76 Respiratory Rate 16 16 20 Blood Pressure 129/67 128/67 Pulse Oximetry 100 100 97 08/12/18 03:53 08/12/18 04:00 08/12/18 04:15 Temperature 100.5 F H Pulse Rate 87 86 87 Respiratory Rate 17 17 18 Blood Pressure 161/77 H 155/74 H 167/73 H Pulse Oximetry 100 100 100 08/12/18 04:45 08/12/18 05:00 08/12/18 05:15 Temperature Pulse Rate 92 H 93 H 90 Respiratory Rate 23 17 16 Blood Pressure 157/74 H 158/76 H 150/73 H Pulse Oximetry 99 100 100 08/12/18 05:30 08/12/18 05:45 08/12/18 06:00 Temperature Pulse Rate 84 83 80 Respiratory Rate 16 16 16 Blood Pressure 145/69 H 132/64 132/66 Pulse Oximetry 100 99 99 08/12/18 06:19 08/12/18 06:30 08/12/18 06:45 Temperature Pulse Rate 95 H 95 H 99 H Respiratory Rate 22 20 22 Blood Pressure 168/79 H 161/92 H 173/95 H Pulse Oximetry 100 100 100 08/12/18 07:00 08/12/18 07:15 08/12/18 07:30 Temperature Pulse Rate 97 H 90 89 Respiratory Rate 19 16 16 Blood Pressure 158/83 H 154/72 H 146/70 H Pulse Oximetry 98 98 97 08/12/18 07:45 08/12/18 08:00 08/12/18 08:12 Temperature 101.3 F H Pulse Rate 86 76 Respiratory Rate 16 17 18 Blood Pressure 149/72 H 147/75 H Pulse Oximetry 99 100 100 08/12/18 08:15 08/12/18 08:30 08/12/18 08:45 Temperature Pulse Rate 92 H 89 91 H Respiratory Rate 16 16 16 Blood Pressure 158/77 H 150/72 H 150/74 H Pulse Oximetry 100 99 98 08/12/18 09:00 08/12/18 09:15 08/12/18 09:30 Temperature Pulse Rate 86 85 85 Respiratory Rate 16 20 15 Blood Pressure 142/71 H 138/70 142/68 H Pulse Oximetry 100 100 99 08/12/18 09:45 08/12/18 10:00 08/12/18 10:15 Temperature Pulse Rate 90 92 H 93 H Respiratory Rate 24 23 36 H Blood Pressure 144/70 H 143/72 H 142/73 H Pulse Oximetry 99 99 99 08/12/18 10:30 08/12/18 10:45 08/12/18 11:00 Temperature Pulse Rate 97 H 96 H 92 H Respiratory Rate 20 24 27 H Blood Pressure 143/80 H 142/80 H 139/73 Pulse Oximetry 99 98 99 08/12/18 11:14 08/12/18 11:15 08/12/18 11:30 Temperature Pulse Rate 91 H 92 H Respiratory Rate 20 29 H 20 Blood Pressure 147/74 H 139/69 Pulse Oximetry 99 100 99 08/12/18 11:45 08/12/18 12:00 08/12/18 12:15 Temperature 99.3 F Pulse Rate 93 H 96 H 102 H Respiratory Rate 25 H 31 H 39 H Blood Pressure 138/68 146/73 H 173/81 H Pulse Oximetry 100 98 98 08/12/18 12:37 08/12/18 12:45 08/12/18 13:00 Temperature Pulse Rate 112 H 114 H 112 H Respiratory Rate 42 H 25 H 23 Blood Pressure 174/84 H 178/85 H 166/82 H Pulse Oximetry 99 97 98 08/12/18 13:09 08/12/18 13:15 08/12/18 13:30 Temperature Pulse Rate 103 H 104 H Respiratory Rate 19 16 Blood Pressure 161/79 H 156/73 H Pulse Oximetry 95 96 96 08/12/18 13:45 08/12/18 14:00 Temperature Pulse Rate 100 H 100 H Respiratory Rate 13 Blood Pressure 151/76 H Pulse Oximetry 97 Intake & Output 08/11/18 08/12/18 08/12/18 18:59 06:59 18:59 Intake Total 496 / 496 629 / 629 150 / 150 Output Total 1650 / 1650 1450 / 1450 Balance -1154 / -1154 -821 / -821 150 / 150 Weight 83 kg Intake: IV 300 / 300 450 / 450 150 / 150 Cleviprex Inj 25 mg In 50 ml @ 100 / 100 50 / 50 50 / 50 1 MG/HR 2 mls/hr IV.CONT TITRATE PRN Rx#:[id number] Versed Inj 50 mg In 50 ml @ 2 100 / 100 MG/HR 2 mls/hr IV.CONT TITRATE PRN Rx#:[id number] Diprivan 1000 mg/100 ml Inj 1, 200 / 200 300 / 300 100 / 100 000 mg In 100 ml @ 5 MCG/KG/MIN 2.517 mls/hr IV.CONT TITRATE PRN Rx#:[id number] Tube Feeding 196 / 196 179 / 179 Output: Urine Amount (Catheter) 1650 / 1650 1450 / 1450 Indwelling Urethral Catheter 1650 / 1650 1450 / 1450 Other: Date of Last Bowel Movement 08/12/18 08/12/18 # Bowel Movements 0 # Incontinent Bowel Movements 1 - Constitutional no acute distress - Routine Neck Exam Present: supple - Routine Abdominal Exam Present: soft, normoactive bowel sounds. Absent: tenderness, distended, rebound , guarding - Routine Extremities Exam Absent: cyanosis - Routine Neurological Exam Present: alert - Urinary Catheter Management Indwelling Urethral Catheter Cath placed during this visit: yes Reason for continuing: Hourly intake/output Insertion date: 08/09/18 Insertion time: 04:48 Results - Labs CBC & Chem 7: 08/12/18 04:27 08/12/18 04:27 Laboratory Results - last 24 hr 08/10/18 08/11/18 08/12/18 12:45 07:26 04:27 WBC 11.1 H RBC 3.29 L Hgb 9.6 L Hct 29.6 L MCV 90.0 MCH 29.3 MCHC 32.5 RDW 13.6 Plt Count 336 MPV 9.5 Sodium Potassium Chloride Carbon Dioxide Anion Gap BUN Creatinine Estimated GFR Random Glucose Calcium Phosphorus Magnesium Total Bilirubin AST ALT Alkaline Phosphatase Total Protein Albumin Albumin (PEP) 2.09 L Albumin/Globulin Ratio 0.56 L Hcurh-1-Fqqihjxjb 0.40 H Jdejc-1-Kkmxbczhh 1.27 H Beta Globulins 0.93 Gamma Globulins 1.11 Urine Color Urine Clarity Urine pH Ur Specific [place] Urine Protein Urine Glucose (UA) Urine Ketones Urine Occult Blood Urine Nitrate Urine Bilirubin Urine Urobilinogen Ur Leukocyte Esterase Urine RBC Urine WBC Urine WBC Clumps Ur Squamous Epith Cells Urine Bacteria Hyaline Casts Urine Mucus Micro UA Comment Ur Microscopic Review Urine Culture Comments RUI Screen Neg 08/12/18 08/12/18 04:27 08:20 WBC RBC Hgb Hct MCV MCH MCHC RDW Plt Count MPV Sodium 142 Potassium 4.5 Chloride 107 Carbon Dioxide 24.2 Anion Gap 11 BUN 47 H Creatinine 2.31 H Estimated GFR 29 L Random Glucose 104 Calcium 8.0 L Phosphorus 5.7 H Magnesium 2.1 Total Bilirubin 0.3 AST 23 ALT 23 Alkaline Phosphatase 98 Total Protein 6.5 D Albumin 1.8 L Albumin (PEP) Albumin/Globulin Ratio Dwtuq-7-Flncpuetj Ayeja-6-Musccjxur Beta Globulins Gamma Globulins Urine Color Yellow Urine Clarity Hazy H Urine pH 5.0 Ur Specific [place] 1.013 Urine Protein 100 H Urine Glucose (UA) Negative Urine Ketones Negative Urine Occult Blood Small H Urine Nitrate Negative Urine Bilirubin Negative Urine Urobilinogen Less than 2 Ur Leukocyte Esterase Trace H Urine RBC 17 H Urine WBC 18 H Urine WBC Clumps Occasional H Ur Squamous Epith Cells <1 Urine Bacteria Few H Hyaline Casts 37 Urine Mucus Few H Micro UA Comment Cath-culture ind Ur Microscopic Review Not Reportable Urine Culture Comments Cath-cult indicated RUI Screen Microbiology 08/11/18 11:40 Sputum - Endotracheal Gram Stain - Final 08/11/18 11:40 Sputum - Endotracheal Sputum Culture - Preliminary Staphylococcus aureus 08/10/18 12:30 Clean Catch Urine Urine Culture - Final No growth in 48 hours - Imaging Impressions Liver Ultrasound 08/12/18 00:00 CONCLUSION: 1. Slight hepatosplenomegaly. 2. Small bilateral pleural effusions and a trace of fluid in the upper peritoneal cavity around the liver. 3. Fluid collection within gallbladder fossa of uncertain etiology nonspecific and most likely postsurgical changes, however possibility of bile leak or infectious etiologies are not excluded. Chest X-Ray 08/12/18 07:14 CONCLUSION: 1. Stable ETT and NGT. 2. Persistent small left pleural effusion and associated left lower lobe airspace consolidation. 3. Improved aeration of the right lower lung zone. Assessment and Plan - Attending Attestation IMPRESSION: 1. Hepatitis C antibody positivity -discussed this with patient and -- it does not necessarily mean he has hepatitis C. It could be he was exposed to it or a false positive exam. A PCR is a more sensitive test and is currently pending. 2. History of colon polyps. 3. History of gastritis, minimal. He is currently on an H2 hernandez and this should do well. 4. Flash pulmonary edema with respiratory failure. 5. Fluid seen in the gallbladder fossa. He has gallbladder removed 1 week ago and I suspect this this rather than a bile leak. His abdomen is relatively benign RECOMMENDATIONS: 1. Await PCR--sometimes takes several days to weeks 2. I explained to the patient's that even if it is positive we do not plan on treating him here as an inpatient. They should follow-up in the office with Dr. Sarabia (or a PA) to arrange a genotype testing to determine what type of hepatitis C he has and then we can talk with liver biopsy, treatments and prognosis 3. We will sign off for now
--- NOTE | 2018-08-12 15:44 | P.PNNP ---
Subjective Interval history: Patient is now extubated still confused Physical Exam Vital signs: Vital Signs 08/11/18 15:46 08/11/18 16:00 08/11/18 16:15 Temperature 98.9 F Pulse Rate 85 81 Respiratory Rate 16 16 16 Blood Pressure 103/59 L 135/73 Pulse Oximetry 97 97 100 08/11/18 16:30 08/11/18 16:44 08/11/18 16:45 Temperature Pulse Rate 80 79 Respiratory Rate 16 16 Blood Pressure 132/72 128/70 Pulse Oximetry 99 98 08/11/18 18:00 08/11/18 20:00 08/11/18 20:06 Temperature 99.4 F Pulse Rate 75 77 Respiratory Rate 16 16 Blood Pressure 144/78 H Pulse Oximetry 100 100 08/11/18 22:00 08/11/18 23:29 08/12/18 00:00 Temperature 100 F H Pulse Rate 78 82 Respiratory Rate 17 16 Blood Pressure 143/76 H Pulse Oximetry 100 100 08/12/18 02:00 08/12/18 03:00 08/12/18 03:15 Temperature Pulse Rate 88 80 78 Respiratory Rate 16 16 Blood Pressure 144/71 H 129/67 Pulse Oximetry 100 100 08/12/18 03:30 08/12/18 03:51 08/12/18 03:53 Temperature Pulse Rate 76 87 Respiratory Rate 16 20 17 Blood Pressure 128/67 161/77 H Pulse Oximetry 100 97 100 08/12/18 04:00 08/12/18 04:15 08/12/18 04:45 Temperature 100.5 F H Pulse Rate 86 87 92 H Respiratory Rate 17 18 23 Blood Pressure 155/74 H 167/73 H 157/74 H Pulse Oximetry 100 100 99 08/12/18 05:00 08/12/18 05:15 08/12/18 05:30 Temperature Pulse Rate 93 H 90 84 Respiratory Rate 17 16 16 Blood Pressure 158/76 H 150/73 H 145/69 H Pulse Oximetry 100 100 100 08/12/18 05:45 08/12/18 06:00 08/12/18 06:19 Temperature Pulse Rate 83 80 95 H Respiratory Rate 16 16 22 Blood Pressure 132/64 132/66 168/79 H Pulse Oximetry 99 99 100 08/12/18 06:30 08/12/18 06:45 10/23/18 07:00 Temperature Pulse Rate 95 H 99 H 97 H Respiratory Rate 20 22 19 Blood Pressure 161/92 H 173/95 H 158/83 H Pulse Oximetry 100 100 98 08/12/18 07:15 08/12/18 07:30 08/12/18 07:45 Temperature Pulse Rate 90 89 86 Respiratory Rate 16 16 16 Blood Pressure 154/72 H 146/70 H 149/72 H Pulse Oximetry 98 97 99 08/12/18 08:00 08/12/18 08:12 08/12/18 08:15 Temperature 101.3 F H Pulse Rate 76 92 H Respiratory Rate 17 18 16 Blood Pressure 147/75 H 158/77 H Pulse Oximetry 100 100 100 08/12/18 08:30 08/12/18 08:45 08/12/18 09:00 Temperature Pulse Rate 89 91 H 86 Respiratory Rate 16 16 16 Blood Pressure 150/72 H 150/74 H 142/71 H Pulse Oximetry 99 98 100 08/12/18 09:15 08/12/18 09:30 08/12/18 09:45 Temperature Pulse Rate 85 85 90 Respiratory Rate 20 15 24 Blood Pressure 138/70 142/68 H 144/70 H Pulse Oximetry 100 99 99 08/12/18 10:00 08/12/18 10:15 08/12/18 10:30 Temperature Pulse Rate 92 H 93 H 97 H Respiratory Rate 23 36 H 20 Blood Pressure 143/72 H 142/73 H 143/80 H Pulse Oximetry 99 99 99 08/12/18 10:45 08/12/18 11:00 08/12/18 11:14 Temperature Pulse Rate 96 H 92 H Respiratory Rate 24 27 H 20 Blood Pressure 142/80 H 139/73 Pulse Oximetry 98 99 99 08/12/18 11:15 08/12/18 11:30 08/12/18 11:45 Temperature Pulse Rate 91 H 92 H 93 H Respiratory Rate 29 H 20 25 H Blood Pressure 147/74 H 139/69 138/68 Pulse Oximetry 100 99 100 08/12/18 12:00 08/12/18 12:15 08/12/18 12:37 Temperature 99.3 F Pulse Rate 96 H 102 H 112 H Respiratory Rate 31 H 39 H 42 H Blood Pressure 146/73 H 173/81 H 174/84 H Pulse Oximetry 98 98 99 08/12/18 12:45 08/12/18 13:00 10/23/18 13:09 Temperature Pulse Rate 114 H 112 H Respiratory Rate 25 H 23 Blood Pressure 178/85 H 166/82 H Pulse Oximetry 97 98 95 08/12/18 13:15 08/12/18 13:30 08/12/18 13:45 Temperature Pulse Rate 103 H 104 H 100 H Respiratory Rate 19 16 13 Blood Pressure 161/79 H 156/73 H 151/76 H Pulse Oximetry 96 96 97 08/12/18 14:00 Temperature Pulse Rate 100 H Respiratory Rate Blood Pressure Pulse Oximetry Intake & Output 08/11/18 08/12/18 08/12/18 18:59 06:59 18:59 Intake Total 496 / 496 629 / 629 374 / 374 Output Total 1650 / 1650 1450 / 1450 Balance -1154 / -1154 -821 / -821 374 / 374 Weight 83 kg Intake: IV 300 / 300 450 / 450 374 / 374 Cleviprex Inj 25 mg In 50 ml @ 100 / 100 50 / 50 100 / 100 1 MG/HR 2 mls/hr IV.CONT TITRATE PRN Rx#:[id number] Versed Inj 50 mg In 50 ml @ 2 100 / 100 12 / 12 MG/HR 2 mls/hr IV.CONT TITRATE PRN Rx#:[id number] Diprivan 1000 mg/100 ml Inj 1, 200 / 200 300 / 300 162 / 162 000 mg In 100 ml @ 5 MCG/KG/MIN 2.517 mls/hr IV.CONT TITRATE PRN Rx#:[id number] Maxipime Inj 1,000 MG In NS Inj 100 / 100 100 ML @ 200 mls/hr IV.SIG Q8H RENETTA Rx#:[id number] Tube Feeding 196 / 196 179 / 179 Output: Urine Amount (Catheter) 1650 / 1650 1450 / 1450 Indwelling Urethral Catheter 1650 / 1650 1450 / 1450 Other: Date of Last Bowel Movement 08/12/18 08/12/18 # Bowel Movements 0 # Incontinent Bowel Movements 1 Narrative: GENERAL: Well-nourished, well-developed intubated patient. SKIN: Warm and dry. HEAD: Normocephalic. EYES: No scleral icterus. No injection or drainage. NECK: Supple, trachea midline. No JVD or lymphadenopathy. CARDIOVASCULAR: Regular rate and rhythm without murmurs, gallops, or rubs. RESPIRATORY: Breath sounds equal bilaterally. No accessory muscle use. GASTROINTESTINAL: Abdomen soft, non-tender, nondistended. Postsurgical scar EXTREMITIES: 1+ edema NEUROLOGICAL: Open eyes - Urinary Catheter Management Indwelling Urethral Catheter Cath placed during this visit: yes Reason for continuing: Hourly intake/output Insertion date: 08/09/18 Insertion time: 04:48 Assessment and Plan - Assessment (1) Acute kidney injury superimposed on chronic kidney disease Code(s): N17.9 - Acute kidney failure, unspecified; N18.9 - Chronic kidney disease, unspecified Status: Acute (2) Diastolic CHF Code(s): I50.30 - Unspecified diastolic (congestive) heart failure Status: Acute (3) Hypertension Code(s): I10 - Essential (primary) hypertension Status: Acute (4) Respiratory failure Code(s): J96.90 - Respiratory failure, unspecified, unspecified whether with hypoxia or hypercapnia Status: Acute (5) Left ventricular diastolic dysfunction Code(s): I51.9 - Heart disease, unspecified Status: Acute - Plan Discussed with patient patient has uncontrolled hypertension which was difficult to control after surgery and went into congestive heart failure Acute kidney injury is related to uncontrolled hypertension C4 is low. Negative RUI Hepatitis C antibody positive which she is aware of We will check hepatitis C PCR Continue to monitor the progress Hypertensive kidney injury Continue to monitor add hydralazine 25 mg 3 times daily for better blood pressure control along with carvedilol and doxazosin
[2018-08-12] MEDS ORDERED: Labetalol HCl Inj 100 MG/20 ML Vial IV.PUSH PRN (16:12)
[2018-08-12] MEDS: hydrALAZINE 25 MG Tablet PO SCH (18:04)
[2018-08-13] MEDS: Oral Hygiene Kit OROPHARYNG SCH ×4 (00:08→16:00)
[2018-08-13] MEDS ORDERED: ALPRAZolam 0.25 MG Tablet PO PRN (02:52)
[2018-08-13] MEDS: metroNIDAZOLE 500 MG Tablet NG/OG SCH ×3 (02:58→17:35)
[2018-08-13] MEDS: Acetaminophen 500 MG Tablet PO SCH ×2 (03:17→20:19)
[2018-08-13] MEDS: Chlorhexidine Gluconate 2% 1 Pack (2 Cloths) TOPICAL SCH (03:18)
[2018-08-13] MEDS: Clevidipine Inj 25 MG/50 ML VIAL IV.CONT PRN (04:17)
[2018-08-13] MEDS: Heparin - SQ 10,000 UNITS/ML Vial SQ SCH ×3 (05:23→22:22)
[2018-08-13 07:18] LABS: Hematocrit 24.5 % (39.0-51.0); Hemoglobin 8.4 gm/dL (13.0-17.0); Mean Corpuscular HGB Conc 34.4 % (32.0-36.0); Mean Corpuscular Hemoglobin 30.2 pg (27.0-34.0); Mean Corpuscular Volume 87.6 fL (80.0-100.0); Mean Platelet Volume 8.9 fL (7.0-11.0); Platelet Count 317 th/mm3 (150-450); Red Cell Distribution Width 13.5 % (11.6-17.2); White Blood Count 15.4 th/mm3 (4.0-11.0)
[2018-08-13 07:36] LABS: Alanine Aminotransferase 18 U/L (12-78); Albumin 1.8 g/dL (3.4-5.0); Anion Gap 11 meq/L (5-15); Aspartate Aminotransferase 25 U/L (15-37); Blood Urea Nitrogen 48 mg/dL (7-18); Carbon Dioxide 24.5 meq/L (21.0-32.0); Chloride 109 meq/L (98-107); Glomerular Filtration Rate 37 mL/min (>89); Glucose,Random 104 mg/dL (74-106); Magnesium 2.2 mg/dL (1.5-2.5); Sodium 144 meq/L (136-145)
[2018-08-13 07:39] LABS: Alkaline Phosphatase 90 U/L (45-117); Phosphorus 5.6 mg/dL (2.5-4.9)
[2018-08-13] MEDS: Chlorhexidine 0.12% Oral Kit 15 ML UDC OROPHARYNG SCH ×2 (09:01→20:19)
[2018-08-13] MEDS: Spironolactone 50 MG Tablet PO SCH (09:12)
[2018-08-13] MEDS: Doxazosin 4 MG Tablet PO SCH (09:12)
[2018-08-13] MEDS: hydrALAZINE 25 MG Tablet PO SCH ×3 (09:12→17:35)
[2018-08-13] MEDS: Carvedilol 12.5 MG Tablet PO SCH ×2 (09:13→20:15)
[2018-08-13] MEDS: Famotidine PF Inj 20 MG/2 ML Vial IV.PUSH SCH ×2 (09:13→20:19)
[2018-08-13] MEDS: Senna/Docusate Sodium 8.6/50 MG Tablet PO SCH ×2 (09:14→20:19)
--- NOTE | 2018-08-13 10:20 | P.PNCC ---
Subjective Subjective Remarks/Hospital Course: 08/09: 57-year-old male with history of diastolic heart failure and preserved ejection fraction of 55% on last echo in October 2017 came to the emergency room brought in by EMS for acute respiratory distress, intubated at the scene. As per the tassel snipper patient's girlfriend called 911 and when they arrived they noticed that the patient was tripoding gasping for air. His blood pressure initially upon their arrival was 236 systolic. Patient was given nitro sublingual spray and Lasix. They put a CPAP on him but patient did not tolerated well. At that point the decision was made to intubate him. Patient was given IV etomidate and Versed followed by intubation. Per patient's family at the bedside he had a cholecystectomy done a week ago and since then his blood pressure was poorly controlled as well as worsening of her peripheral edema. The patient has a history of allergic reaction to Lasix with a generalized body rash. 08/10: Remains sedated, orally intubated on mechanical ventilation. Not much urine output with Bumex. Creatinine increasing. 08/11: Sedated, arousable, orally intubated on mechanical ventilation. Failed CPAP trial today. Diuresed with Bumex. 08/12: Sedated, arousable, orally intubated on mechanical ventilation. Spiked fevers this morning. Sputum cultures ordered yesterday, blood cultures, UA urine cultures ordered. Starting empiric antibiotic coverage with IV cefepime and p.o. Flagyl. 08/13: Extubated yesterday. On 6 L nasal cannula. Growing staph aureus from sputum cultures. Blood pressure remains elevated on Cleviprex drip. Ordered 24 -hour urine for metanephrines in view of extremely labile blood pressures/ tachycardia to exclude pheochromocytoma. Objective Vital Signs / I&O: Vital Signs 08/12/18 10:15 08/12/18 10:30 08/12/18 10:45 Temperature Pulse Rate 93 H 97 H 96 H Respiratory Rate 36 H 20 24 Blood Pressure 142/73 H 143/80 H 142/80 H Pulse Oximetry 99 99 98 08/12/18 11:00 08/12/18 11:14 08/12/18 11:15 Temperature Pulse Rate 92 H 91 H Respiratory Rate 27 H 20 29 H Blood Pressure 139/73 147/74 H Pulse Oximetry 99 99 100 08/12/18 11:30 08/12/18 11:45 08/12/18 12:00 Temperature 99.3 F Pulse Rate 92 H 93 H 96 H Respiratory Rate 20 25 H 31 H Blood Pressure 139/69 138/68 146/73 H Pulse Oximetry 99 100 98 08/12/18 12:15 08/12/18 12:37 08/12/18 12:45 Temperature Pulse Rate 102 H 112 H 114 H Respiratory Rate 39 H 42 H 25 H Blood Pressure 173/81 H 174/84 H 178/85 H Pulse Oximetry 98 99 97 08/12/18 13:00 08/12/18 13:09 08/12/18 13:15 Temperature Pulse Rate 112 H 103 H Respiratory Rate 23 19 Blood Pressure 166/82 H 161/79 H Pulse Oximetry 98 95 96 08/12/18 13:30 08/12/18 13:45 08/12/18 14:00 Temperature Pulse Rate 104 H 100 H 100 H Respiratory Rate 16 13 19 Blood Pressure 156/73 H 151/76 H 155/81 H Pulse Oximetry 96 97 97 08/12/18 14:15 08/12/18 14:30 08/12/18 14:45 Temperature Pulse Rate 104 H 101 H 100 H Respiratory Rate 18 13 18 Blood Pressure 168/83 H 162/85 H 180/93 H Pulse Oximetry 97 98 97 08/12/18 15:00 08/12/18 15:15 08/12/18 15:30 Temperature Pulse Rate 101 H 104 H 99 H Respiratory Rate 17 16 17 Blood Pressure 180/89 H 173/88 H 185/91 H Pulse Oximetry 98 98 98 08/12/18 15:45 08/12/18 16:00 08/12/18 16:15 Temperature 101 F H Pulse Rate 104 H 104 H 105 H Respiratory Rate 16 16 16 Blood Pressure 177/98 H 183/88 H 177/90 H Pulse Oximetry 97 97 98 08/12/18 16:30 08/12/18 16:45 08/12/18 17:00 Temperature Pulse Rate 108 H 104 H 103 H Respiratory Rate 28 H 15 32 H Blood Pressure 175/83 H 179/86 H 157/75 H Pulse Oximetry 96 97 97 08/12/18 17:15 08/12/18 18:00 08/12/18 20:00 Temperature 99.2 F Pulse Rate 103 H 98 H 100 H Respiratory Rate 16 22 Blood Pressure 149/76 H 122/56 L Pulse Oximetry 97 97 08/12/18 21:40 08/12/18 22:00 08/13/18 00:00 Temperature 99.4 F Pulse Rate 102 H 98 H Respiratory Rate 25 H Blood Pressure 149/71 H Pulse Oximetry 98 98 08/13/18 02:00 08/13/18 04:00 08/13/18 06:00 Temperature 99.8 F H Pulse Rate 94 H 96 H 89 Respiratory Rate 27 H Blood Pressure 152/73 H Pulse Oximetry 96 08/13/18 07:42 Temperature Pulse Rate Respiratory Rate Blood Pressure Pulse Oximetry 96 Intake & Output 08/12/18 08/13/18 08/13/18 18:59 06:59 18:59 Intake Total 614 / 614 490 / 490 Output Total 1250 / 1250 1275 / 1275 Balance -636 / -636 -785 / -785 Weight 80.5 kg Intake: IV 374 / 374 300 / 300 Cleviprex Inj 25 mg In 50 ml @ 100 / 100 100 / 100 1 MG/HR 2 mls/hr IV.CONT TITRATE PRN Rx#:[id number] Versed Inj 50 mg In 50 ml @ 2 12 / 12 MG/HR 2 mls/hr IV.CONT TITRATE PRN Rx#:[id number] Diprivan 1000 mg/100 ml Inj 1, 162 / 162 000 mg In 100 ml @ 5 MCG/KG/MIN 2.517 mls/hr IV.CONT TITRATE PRN Rx#:[id number] Maxipime Inj 1,000 MG In NS Inj 100 / 100 200 / 200 100 ML @ 200 mls/hr IV.SIG Q8H RENETTA Rx#:[id number] Oral 240 / 240 190 / 190 Output: Urine Amount (Catheter) 1250 / 1250 1275 / 1275 Indwelling Urethral Catheter 1250 / 1250 1275 / 1275 Other: Date of Last Bowel Movement 08/12/18 08/13/18 # Bowel Movements 1 1 Result Diagrams: 08/13/18 06:35 08/13/18 06:35 Imaging: Chest X-Ray 08/09/18 04:18 CONCLUSION: 1. Bilateral airspace disease. 2. Endotracheal tube 6.5 cm above the navneet. 3. Small right pleural effusion. Abdomen/Bladder Ultrasound 08/10/18 00:00 CONCLUSION: 1. Echogenic kidneys consistent with medical renal disease. 2. No sonographic evidence for obstructive uropathy. 3. Trace ascites. 4. Small left pleural effusion. Chest X-Ray 08/10/18 10:00 CONCLUSION: Interval improvement in apparent pulmonary edema. Liver Ultrasound 08/12/18 00:00 CONCLUSION: 1. Slight hepatosplenomegaly. 2. Small bilateral pleural effusions and a trace of fluid in the upper peritoneal cavity around the liver. 3. Fluid collection within gallbladder fossa of uncertain etiology nonspecific and most likely postsurgical changes, however possibility of bile leak or infectious etiologies are not excluded. Chest X-Ray 08/12/18 07:14 CONCLUSION: 1. Stable ETT and NGT. 2. Persistent small left pleural effusion and associated left lower lobe airspace consolidation. 3. Improved aeration of the right lower lung zone. Objective Remarks: HEENT/ Neuro: Sedated, orally intubated, No Pallor, no icterus, tongue/ mucosa moist Neck: No JVD Chest/Pulm: on mech vent, good air entry bilaterally, scattered rhonchi, no wheezing or crackles CVS: S1-S2 regular, no murmur GI/abdomen: soft, nontender, bowel sounds sluggish Extremities: warm bilaterally, bilateral pitting edema lower extremities Assessment and Plan - Assessment and Plan Plan: Acute Respiratory failure Pulmonary edema Pneumonia -Vent bundle -DuoNeb's as needed -Aggressive diuresis -SBT daily Acute on chronic congestive heart failure Diastolic heart failure -Preserved EF 55% on echo in October 2017 -Repeat 2D echo results noted -Troponins negative. -Blood pressure control -diuresis with Bumex -Cardiology following Sepsis Pneumonia -Follow-up cultures. -Starting empiric antibiotic coverage with IV cefepime/p.o. Flagyl on 08/12. Added IV linezolid as sputum growing staph aureus while sensitivities pending. -Chest x-ray with bibasilar infiltrates. Hypertension -Continue home meds Cardura and carvedilol. Nephrology added Cardura -Spironolactone -Bumex -Cleviprex rather than Cardene (due to volume infusion the patient with severe fluid overload ) drip as needed to keep SBP less than 140 -Check 24 urine for metanephrines to evaluate for pheochromocytoma, if negative consider workup for renal artery stenosis. Discussed with Dr. Isaacs yanira/ Chronic kidney disease -Strict I's and O's -Diuresis -Monitor creatinine and electrolytes levels -Nephrology consulted for worsening creatinine. Workup in progress for proteinuria/elevated creatinine. Hep C antibody reactive -Per patient's patient has tested positive for hep C antibody however has not had any further workup. He has been evaluated by Dr. Marti Sarabia about 1 year ago for GI. Hep C RNA PCR pending. GI consult noted DVT GI prophylaxis -Teds SCDs -Subcu heparin -Pepcid Updated patient's regarding current clinical status and plan of care and she voiced understanding and was agreeable.
--- NOTE | 2018-08-13 13:35 | P.PNNP ---
Subjective Interval history: Patient is eating lunch Physical Exam Vital signs: Vital Signs 08/12/18 13:45 08/12/18 14:00 08/12/18 14:15 Temperature Pulse Rate 100 H 100 H 104 H Respiratory Rate 13 19 18 Blood Pressure 151/76 H 155/81 H 168/83 H Pulse Oximetry 97 97 97 08/12/18 14:30 08/12/18 14:45 08/12/18 15:00 Temperature Pulse Rate 101 H 100 H 101 H Respiratory Rate 13 18 17 Blood Pressure 162/85 H 180/93 H 180/89 H Pulse Oximetry 98 97 98 08/12/18 15:15 08/12/18 15:30 08/12/18 15:45 Temperature Pulse Rate 104 H 99 H 104 H Respiratory Rate 16 17 16 Blood Pressure 173/88 H 185/91 H 177/98 H Pulse Oximetry 98 98 97 08/12/18 16:00 08/12/18 16:15 08/12/18 16:30 Temperature 101 F H Pulse Rate 104 H 105 H 108 H Respiratory Rate 16 16 28 H Blood Pressure 183/88 H 177/90 H 175/83 H Pulse Oximetry 97 98 96 08/12/18 16:45 08/12/18 17:00 08/12/18 17:15 Temperature Pulse Rate 104 H 103 H 103 H Respiratory Rate 15 32 H 16 Blood Pressure 179/86 H 157/75 H 149/76 H Pulse Oximetry 97 97 97 08/12/18 18:00 08/12/18 20:00 08/12/18 21:40 Temperature 99.2 F Pulse Rate 98 H 100 H Respiratory Rate 22 Blood Pressure 122/56 L Pulse Oximetry 97 98 08/12/18 22:00 08/13/18 00:00 08/13/18 02:00 Temperature 99.4 F Pulse Rate 102 H 98 H 94 H Respiratory Rate 25 H Blood Pressure 149/71 H Pulse Oximetry 98 08/13/18 04:00 08/13/18 06:00 08/13/18 07:42 Temperature 99.8 F H Pulse Rate 96 H 89 Respiratory Rate 27 H Blood Pressure 152/73 H Pulse Oximetry 96 96 08/13/18 08:00 08/13/18 10:00 08/13/18 12:00 Temperature 98.4 F 98.4 F Pulse Rate 87 91 H 86 Respiratory Rate 17 13 Blood Pressure 137/66 148/72 H Pulse Oximetry 97 100 Intake & Output 08/12/18 08/13/18 08/13/18 18:59 06:59 18:59 Intake Total 614 / 614 490 / 490 Output Total 1250 / 1250 1275 / 1275 Balance -636 / -636 -785 / -785 Weight 80.5 kg Intake: IV 374 / 374 300 / 300 Cleviprex Inj 25 mg In 50 ml @ 100 / 100 100 / 100 1 MG/HR 2 mls/hr IV.CONT TITRATE PRN Rx#:[id number] Versed Inj 50 mg In 50 ml @ 2 12 / 12 MG/HR 2 mls/hr IV.CONT TITRATE PRN Rx#:[id number] Diprivan 1000 mg/100 ml Inj 1, 162 / 162 000 mg In 100 ml @ 5 MCG/KG/MIN 2.517 mls/hr IV.CONT TITRATE PRN Rx#:[id number] Maxipime Inj 1,000 MG In NS Inj 100 / 100 200 / 200 100 ML @ 200 mls/hr IV.SIG Q8H [facility] Rx#:[id number] Oral 240 / 240 190 / 190 Output: Urine Amount (Catheter) 1250 / 1250 1275 / 1275 Indwelling Urethral Catheter 1250 / 1250 1275 / 1275 Other: Date of Last Bowel Movement 08/12/18 08/13/18 08/13/18 # Bowel Movements 1 1 Narrative: GENERAL: Well-nourished, well-developed intubated patient. SKIN: Warm and dry. HEAD: Normocephalic. EYES: No scleral icterus. No injection or drainage. NECK: Supple, trachea midline. No JVD or lymphadenopathy. CARDIOVASCULAR: Regular rate and rhythm without murmurs, gallops, or rubs. RESPIRATORY: Breath sounds equal bilaterally. No accessory muscle use. GASTROINTESTINAL: Abdomen soft, non-tender, nondistended. Postsurgical scar EXTREMITIES: 1+ edema NEUROLOGICAL: Open eyes - Urinary Catheter Management Indwelling Urethral Catheter Cath placed during this visit: yes Reason for continuing: Hourly intake/output Insertion date: 08/09/18 Insertion time: 04:48 Assessment and Plan - Assessment (1) Acute kidney injury superimposed on chronic kidney disease Code(s): N17.9 - Acute kidney failure, unspecified; N18.9 - Chronic kidney disease, unspecified Status: Acute (2) Diastolic CHF Code(s): I50.30 - Unspecified diastolic (congestive) heart failure Status: Acute (3) Hypertension Code(s): I10 - Essential (primary) hypertension Status: Acute (4) Respiratory failure Code(s): J96.90 - Respiratory failure, unspecified, unspecified whether with hypoxia or hypercapnia Status: Acute (5) Left ventricular diastolic dysfunction Code(s): I51.9 - Heart disease, unspecified Status: Acute - Plan Discussed with patient patient has uncontrolled hypertension which was difficult to control after surgery and went into congestive heart failure Acute kidney injury is related to uncontrolled hypertension C4 is low. Negative RUI Hepatitis C antibody positive We will check hepatitis C PCR Blood pressure better change Bumex to p.o. 2 mg daily along with Aldactone, hydralazine, doxazosin, carvedilol, clevidipine been weaned off 24-hour urine for metanephrines ordered UTI gram-negative rods on cefepime
--- NOTE | 2018-08-13 13:59 | P.PNCA ---
Subjective Interval history: Patient currently sitting up in bed eating breakfast with help of his . Patient denies any chest pain, pressure, palpitations, dizziness, edema or shortness of breath. Patient states that he is feeling better. Medications and Allergies Allergies Allergy/AdvReac Type Severity Reaction Status Date / Time furosemide Allergy Severe Rash Verified 10/30/17 07:10 amlodipine [From Norvasc] Allergy Swelling Verified 08/09/18 07:41 lisinopril Allergy Cough Verified 08/09/18 07:41 losartan Allergy Rash, Verified 08/09/18 07:41 Localized nifedipine [From Procardia] Allergy Swelling Verified 08/09/18 07:41 Home Medications Medication Instructions Recorded Confirmed Type carvedilol 25 mg PO BID 08/09/18 08/09/18 History doxazosin [Cardura] 4 mg PO DAILY 08/09/18 08/09/18 History omeprazole 40 mg PO DAILY 08/09/18 08/09/18 History spironolactone [Aldactone] 50 mg PO DAILY 08/09/18 08/09/18 History Active Medications: Active Medications Acetaminophen (Tylenol) 650 mg PO Q6H PRN PRN Reason: PAIN 1-10 AND/OR FEVER >101F Last Admin: 08/12/18 16:43 Dose: 650 mg Acetaminophen (Tylenol) 500 mg PO [facility] Last Admin: 08/13/18 03:17 Dose: 500 mg Al Hydroxide/Mg Hydroxide (Milk Of Shin Romo) 30 ml PO Q12H PRN PRN Reason: Mild Constipation Albuterol (Duoneb Neb (Prn)) 1 ampul NEB Q2HR NEB PRN PRN Reason: WHEEZING Alprazolam (Xanax) 0.25 mg PO Q6H PRN PRN Reason: ANXIETY Bisacodyl (Dulcolax Supp) 10 mg RECTAL DAILY PRN PRN Reason: SEVERE CONSITIPATION Bumetanide (Bumex) 2 mg PO DAILY [facility] Carvedilol (Coreg) 25 mg PO BID [facility] Last Admin: 08/13/18 09:13 Dose: 25 mg Chlorhexidine Gluconate (Peridex 0.12% Oral Kit) 15 ml OROPHARYNG BID@0800, 2000 [facility] Last Admin: 08/13/18 09:01 Dose: Not Given Chlorhexidine Gluconate (Chlorhexidine 2% Cloth) 3 pack TOPICAL DAILY@0400 [facility] Stop: 08/15/18 03:59 Last Admin: 08/13/18 03:18 Dose: 3 pack Chlorhexidine Gluconate (Chlorhexidine 2% Cloth) 3 pack TOPICAL DAILY@0400 PRN PRN Reason: Extra cloth needed Stop: 08/15/18 03:59 Diphenhydramine HCl (Benadryl Liq) 25 mg NG/OG Q4H PRN PRN Reason: RASH Diphenhydramine HCl (Benadryl) 50 mg PO HS [facility] Last Admin: 08/13/18 03:16 Dose: 50 mg Doxazosin Mesylate (Cardura) 4 mg PO DAILY [facility] Last Admin: 08/13/18 09:12 Dose: 4 mg Famotidine (Pepcid Pf Inj) 10 mg IV.PUSH Q12HR [facility] Last Admin: 08/13/18 09:13 Dose: 10 mg Heparin Sodium (Porcine) (Heparin Inj) 5,000 units SQ Q8H [facility] Last Admin: 08/13/18 13:01 Dose: 5,000 units Hydralazine HCl (Apresoline) 25 mg PO TID [facility] Last Admin: 08/13/18 12:54 Dose: 25 mg Midazolam HCl (Versed Inj) 50 mg in 50 mls @ 2 mls/hr IV.CONT TITRATE PRN; Protocol PRN Reason: Per Protocol Last Titration: 08/12/18 13:00 Dose: Infused Nitroglycerin/Dextrose (Nitroglycerin Drip Premix) 50 mg in 250 mls @ 0 mls/hr IV.CONT TITRATE PRN; Protocol PRN Reason: Per Protocol Last Titration: 08/09/18 14:00 Dose: 0 mcg/min, 0 mls/hr Propofol (Diprivan 1000 Mg/100 Ml Inj) 1,000 mg in 100 mls @ 2.517 mls/hr IV.CONT TITRATE PRN; Protocol PRN Reason: Per Protocol Last Titration: 08/12/18 12:30 Dose: Infused Clevidipine (Cleviprex Inj) 25 mg in 50 mls @ 2 mls/hr IV.CONT TITRATE PRN; Protocol PRN Reason: Per protocol Last Admin: 08/13/18 04:17 Dose: 4 mg/hr, 8 mls/hr Cefepime HCl 1,000 mg/ Sodium (Chloride) 100 mls @ 200 mls/hr IV.SIG Q8H [facility] Last Admin: 08/13/18 09:13 Dose: 100 mls/hr Linezolid (Zyvox 600 Mg Premix) 300 mls @ 300 mls/hr IV.SIG Q12H [facility] Last Admin: 08/13/18 11:07 Dose: 150 mls/hr Labetalol HCl (Trandate Inj) 20 mg IV.PUSH Q4H PRN PRN Reason: SBP>160, DBP>90 Lactulose (Lactulose Liq) 30 ml PO DAILY PRN PRN Reason: SEVERE CONSITIPATION Metronidazole (Flagyl) 500 mg NG/OG Q8H [facility] Last Admin: 08/13/18 09:12 Dose: 500 mg Midazolam HCl (Versed Inj) 2 mg IV.PUSH Q1H PRN PRN Reason: SEDATION Miscellaneous Medication () 1 each OROPHARYNG 0000,0400,1200,1600 [facility] Last Admin: 08/13/18 11:09 Dose: Not Given Morphine Sulfate (Morphine Inj) 2 mg IV.PUSH Q2H PRN PRN Reason: PAIN SCALE 6 TO 10 Ondansetron HCl (Zofran Inj) 4 mg IV.PUSH Q6H PRN PRN Reason: NAUSEA OR VOMITING Senna/Docusate Sodium (Erika-Colace) 1 tab PO BID [facility] Last Admin: 08/13/18 09:14 Dose: Not Given Sennosides (Senokot) 17.2 mg PO Q12H PRN PRN Reason: Moderate Constipation Sodium Chloride (Ns Flush) 2 ml IV.FLUSH BID [facility] Last Admin: 08/13/18 09:13 Dose: 2 ml Sodium Chloride (Ns Flush) 2 ml IV.FLUSH PRN PRN PRN Reason: FLUSH AFTER USING IV ACCESS Spironolactone (Aldactone) 50 mg PO DAILY [facility] Last Admin: 08/13/18 09:12 Dose: 50 mg Physical Exam Vital signs: Vital Signs 08/12/18 14:00 08/12/18 14:15 08/12/18 14:30 Temperature Pulse Rate 100 H 104 H 101 H Respiratory Rate 19 18 13 Blood Pressure 155/81 H 168/83 H 162/85 H Pulse Oximetry 97 97 98 08/12/18 14:45 08/12/18 15:00 08/12/18 15:15 Temperature Pulse Rate 100 H 101 H 104 H Respiratory Rate 18 17 16 Blood Pressure 180/93 H 180/89 H 173/88 H Pulse Oximetry 97 98 98 08/12/18 15:30 08/12/18 15:45 08/12/18 16:00 Temperature 101 F H Pulse Rate 99 H 104 H 104 H Respiratory Rate 17 16 16 Blood Pressure 185/91 H 177/98 H 183/88 H Pulse Oximetry 98 97 97 08/12/18 16:15 08/12/18 16:30 08/12/18 16:45 Temperature Pulse Rate 105 H 108 H 104 H Respiratory Rate 16 28 H 15 Blood Pressure 177/90 H 175/83 H 179/86 H Pulse Oximetry 98 96 97 08/12/18 17:00 08/12/18 17:15 08/12/18 18:00 Temperature Pulse Rate 103 H 103 H 98 H Respiratory Rate 32 H 16 Blood Pressure 157/75 H 149/76 H Pulse Oximetry 97 97 08/12/18 20:00 08/12/18 21:40 08/12/18 22:00 Temperature 99.2 F Pulse Rate 100 H 102 H Respiratory Rate 22 Blood Pressure 122/56 L Pulse Oximetry 97 98 08/13/18 00:00 08/13/18 02:00 08/13/18 04:00 Temperature 99.4 F 99.8 F H Pulse Rate 98 H 94 H 96 H Respiratory Rate 25 H 27 H Blood Pressure 149/71 H 152/73 H Pulse Oximetry 98 96 08/13/18 06:00 08/13/18 07:42 08/13/18 08:00 Temperature 98.4 F Pulse Rate 89 87 Respiratory Rate 17 Blood Pressure 137/66 Pulse Oximetry 96 97 08/13/18 10:00 08/13/18 12:00 Temperature 98.4 F Pulse Rate 91 H 86 Respiratory Rate 13 Blood Pressure 148/72 H Pulse Oximetry 100 Intake & Output 08/12/18 08/13/18 08/13/18 18:59 06:59 18:59 Intake Total 614 / 614 490 / 490 Output Total 1250 / 1250 1275 / 1275 Balance -636 / -636 -785 / -785 Weight 80.5 kg Intake: IV 374 / 374 300 / 300 Cleviprex Inj 25 mg In 50 ml @ 100 / 100 100 / 100 1 MG/HR 2 mls/hr IV.CONT TITRATE PRN Rx#:[id number] Versed Inj 50 mg In 50 ml @ 2 12 / 12 MG/HR 2 mls/hr IV.CONT TITRATE PRN Rx#:[id number] Diprivan 1000 mg/100 ml Inj 1, 162 / 162 000 mg In 100 ml @ 5 MCG/KG/MIN 2.517 mls/hr IV.CONT TITRATE PRN Rx#:[id number] Maxipime Inj 1,000 MG In NS Inj 100 / 100 200 / 200 100 ML @ 200 mls/hr IV.SIG Q8H [facility] Rx#:[id number] Oral 240 / 240 190 / 190 Output: Urine Amount (Catheter) 1250 / 1250 1275 / 1275 Indwelling Urethral Catheter 1250 / 1250 1275 / 1275 Other: Date of Last Bowel Movement 08/12/18 08/13/18 08/13/18 # Bowel Movements 1 1 Narrative: GENERAL: This is a well-nourished, well-developed patient, in no apparent distress. Patient speaks in clear complete sentences. Patient is pleasant. HEENT: Head is atraumatic and normocephalic. Neck is supple without lymphadenopathy and trachea is midline. No JVD or carotid bruits. CARDIOVASCULAR: Regular rate and rhythm without murmurs, gallops, or rubs. RESPIRATORY: Crackles bilaterally lower lobes and midway up. Breath sounds equal bilaterally. No wheezes, or rhonchi. Chest wall is nontender. No use of accessory muscles. Patient was extubated yesterday to nasal cannula. GASTROINTESTINAL: Abdomen is nontender, nondistended. Abdomen soft. No obvious pulsatile mass or bruit. No CVA tenderness. Strong femoral pulses bilaterally. Normal bowel sounds in all quadrants. MUSCULOSKELETAL: Patient is moving upper and lower extremities freely. No calf tenderness or edema, no Homans sign. Strong pulses in upper and lower extremities. NEUROLOGICAL: Patient is alert and mild confusion. Cranial nerves 2-12 are grossly intact. No focal deficits and speech is clear. SKIN: No rash and turgor is normal. - Urinary Catheter Management Indwelling Urethral Catheter Cath placed during this visit: yes Reason for continuing: Hourly intake/output Insertion date: 08/09/18 Insertion time: 04:48 Results 08/13/18 06:35 10/24/18 06:35 Cardiac Enzymes 08/12/18 08/13/18 Range/Units 04:27 06:35 AST 23 25 (15-37) U/L CBC 08/12/18 08/13/18 Range/Units 04:27 06:35 WBC 11.1 H 15.4 H (4.0-11.0) th/mm3 RBC 3.29 L 2.80 L (4.50-5.90) mil/mm3 Hgb 9.6 L 8.4 L (13.0-17.0) gm/dL Hct 29.6 L 24.5 L (39.0-51.0) % Plt Count 336 317 (150-450) th/mm3 Comprehensive Metabolic Panel 08/12/18 08/13/18 Range/Units 04:27 06:35 Sodium 142 144 (136-145) meq/L Potassium 4.5 4.0 (3.5-5.1) meq/L Chloride 107 109 H (98-107) meq/L Carbon Dioxide 24.2 24.5 (21.0-32.0) meq/L BUN 47 H 48 H (7-18) mg/dL Creatinine 2.31 H 1.89 H (0.60-1.30) mg/dL Calcium 8.0 L 8.0 L (8.5-10.1) mg/dL AST 23 25 (15-37) U/L ALT 23 18 (12-78) U/L Alkaline Phosphatase 98 90 (45-117) U/L Total Protein 6.5 D 6.0 L (6.4-8.2) g/dL Albumin 1.8 L 1.8 L (3.4-5.0) g/dL Intake and Output 08/12/18 08/13/18 08/13/18 22:59 06:59 14:59 Intake Total 490 / 490 340 / 340 Output Total 1250 / 1250 1275 / 1275 Balance -760 / -760 -935 / -935 Intake: IV 250 / 250 150 / 150 Cleviprex Inj 25 mg In 50 ml @ 50 / 50 50 / 50 1 MG/HR 2 mls/hr IV.CONT TITRATE PRN Rx#:[id number] Maxipime Inj 1,000 MG In NS Inj 200 / 200 100 / 100 100 ML @ 200 mls/hr IV.SIG Q8H [facility] Rx#:[id number] Oral 240 / 240 190 / 190 Output: Urine Amount (Catheter) 1250 / 1250 1275 / 1275 Indwelling Urethral Catheter 1250 / 1250 1275 / 1275 Other: Date of Last Bowel Movement 08/12/18 08/13/18 08/13/18 # Bowel Movements 1 1 Weight 80.5 kg - Imaging and Cardiology Imaging: Impressions Liver Ultrasound 08/12/18 00:00 CONCLUSION: 1. Slight hepatosplenomegaly. 2. Small bilateral pleural effusions and a trace of fluid in the upper peritoneal cavity around the liver. 3. Fluid collection within gallbladder fossa of uncertain etiology nonspecific and most likely postsurgical changes, however possibility of bile leak or infectious etiologies are not excluded. Chest X-Ray 08/12/18 07:14 CONCLUSION: 1. Stable ETT and NGT. 2. Persistent small left pleural effusion and associated left lower lobe airspace consolidation. 3. Improved aeration of the right lower lung zone. Assessment and Plan - Assessment (1) Diastolic CHF Code(s): I50.30 - Unspecified diastolic (congestive) heart failure Status: Acute (2) Hypertension Code(s): I10 - Essential (primary) hypertension Status: Acute (3) Respiratory failure Code(s): J96.90 - Respiratory failure, unspecified, unspecified whether with hypoxia or hypercapnia Status: Acute (4) Left ventricular diastolic dysfunction Code(s): I51.9 - Heart disease, unspecified Status: Acute - Plan Patient having left ventricular diastolic dysfunction secondary to hypertensive heart disease. Continue current tx for CHF. Patient's blood pressure is under control, continue to titrate medications for blood pressure control. GI evaluation in progress, patient positive for Hep C IgG, liver US showed slight hepatosplenomegaly, small bilateral pleural effusions, trace fluid in the upper peritoneal cavity and fluid collection within gallbladder fossa. Patient extubated yesterday to nasal cannula, appears to be in no respiratory distress. Continue ICU care. D/w pt's . Patient to follow up with Dr. Cook after discharge. Patient was seen and evaluated by Dr. Isaacs who participated in care, management and decision making. - Attending Attestation Patient seen and examined. I reviewed and agree with the evaluation and plan as presented. Continue BP control. Continue ICU care. Increase activity. D/w pt and .
[2018-08-13] MEDS ORDERED: Labetalol HCl Inj 100 MG/20 ML Vial IV.PUSH PRN (17:51)
[2018-08-14] MEDS: Oral Hygiene Kit OROPHARYNG SCH ×4 (00:27→16:43)
[2018-08-14] MEDS: metroNIDAZOLE 500 MG Tablet NG/OG SCH ×2 (01:50→10:19)
[2018-08-14 04:01] LABS: Hematocrit 24.2 % (39.0-51.0); Hemoglobin 7.8 gm/dL (13.0-17.0); Mean Corpuscular HGB Conc 32.2 % (32.0-36.0); Mean Corpuscular Hemoglobin 28.7 pg (27.0-34.0); Mean Corpuscular Volume 89.1 fL (80.0-100.0); Mean Platelet Volume 9.5 fL (7.0-11.0); Platelet Count 326 th/mm3 (150-450); Red Blood Count 2.71 mil/mm3 (4.50-5.90); Red Cell Distribution Width 13.5 % (11.6-17.2); White Blood Count 12.5 th/mm3 (4.0-11.0)
[2018-08-14 04:26] LABS: Albumin 1.8 g/dL (3.4-5.0); Anion Gap 9 meq/L (5-15); Aspartate Aminotransferase 20 U/L (15-37); Blood Urea Nitrogen 48 mg/dL (7-18); Calcium 7.8 mg/dL (8.5-10.1); Carbon Dioxide 23.9 meq/L (21.0-32.0); Chloride 109 meq/L (98-107); Glomerular Filtration Rate 37 mL/min (>89); Glucose,Random 112 mg/dL (74-106); Potassium 3.9 meq/L (3.5-5.1); Sodium 142 meq/L (136-145)
[2018-08-14 04:58] LABS: Alanine Aminotransferase 18 U/L (12-78); Alkaline Phosphatase 79 U/L (45-117); Phosphorus 3.7 mg/dL (2.5-4.9); Total Protein 5.9 g/dL (6.4-8.2)
[2018-08-14] MEDS: Chlorhexidine Gluconate 2% 1 Pack (2 Cloths) TOPICAL SCH (05:47)
[2018-08-14] MEDS: Heparin - SQ 10,000 UNITS/ML Vial SQ SCH ×2 (05:48→14:42)
[2018-08-14] MEDS: Doxazosin 4 MG Tablet PO SCH (08:55)
[2018-08-14] MEDS: hydrALAZINE 25 MG Tablet PO SCH ×3 (08:55→17:51)
[2018-08-14] MEDS: Carvedilol 12.5 MG Tablet PO SCH ×2 (08:55→20:12)
[2018-08-14] MEDS: Spironolactone 50 MG Tablet PO SCH (08:56)
[2018-08-14] MEDS: Famotidine PF Inj 20 MG/2 ML Vial IV.PUSH SCH (08:56)
[2018-08-14] MEDS: Senna/Docusate Sodium 8.6/50 MG Tablet PO SCH ×2 (08:56→20:14)
[2018-08-14] MEDS: Chlorhexidine 0.12% Oral Kit 15 ML UDC OROPHARYNG SCH ×2 (10:19→20:15)
[2018-08-14] MEDS ORDERED: Loperamide 2 MG Capsule PO PRN (10:39)
--- NOTE | 2018-08-14 10:40 | P.PNCC ---
Subjective Subjective Remarks/Hospital Course: 08/09: 57-year-old male with history of diastolic heart failure and preserved ejection fraction of 55% on last echo in October 2017 came to the emergency room brought in by EMS for acute respiratory distress, intubated at the scene. 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 His blood pressure initially upon their arrival was 236 systolic. Patient was given nitro sublingual spray and Lasix. They put a CPAP on him but patient did not tolerated well. At that point the decision was made to intubate him. Patient was given IV etomidate and Versed followed by intubation. Per patient's family at the bedside he had a cholecystectomy done a week ago and since then his blood pressure was poorly controlled as well as worsening of her peripheral edema. The patient has a history of allergic reaction to Lasix with a generalized body rash. 08/10: Remains sedated, orally intubated on mechanical ventilation. Not much urine output with Bumex. Creatinine increasing. 08/11: Sedated, arousable, orally intubated on mechanical ventilation. Failed CPAP trial today. Diuresed with Bumex. 08/12: Sedated, arousable, orally intubated on mechanical ventilation. Spiked fevers this morning. Sputum cultures ordered yesterday, blood cultures, UA urine cultures ordered. Starting empiric antibiotic coverage with IV cefepime and p.o. Flagyl. 08/13: Extubated yesterday. On 6 L nasal cannula. Growing staph aureus from sputum cultures. Blood pressure remains elevated on Cleviprex drip. Ordered 24 -hour urine for metanephrines in view of extremely labile blood pressures/ tachycardia to exclude pheochromocytoma. 08/14: doing well. on room air. sbp in the 160s, though off clevidipine. denies complaints. denies sob today. organ function continues to improve. Objective Vital Signs / I&O: Vital Signs 08/13/18 12:00 08/13/18 12:01 08/13/18 12:15 Temperature 36.9 C Pulse Rate 86 80 Respiratory Rate 13 11 L Blood Pressure 148/72 H 148/72 H 155/79 H Pulse Oximetry 100 100 08/13/18 12:30 08/13/18 12:45 08/13/18 13:00 Temperature Pulse Rate 83 82 82 Respiratory Rate 13 17 15 Blood Pressure 160/83 H 162/84 H 156/82 H Pulse Oximetry 100 100 100 08/13/18 13:15 08/13/18 13:30 08/13/18 13:45 Temperature Pulse Rate 85 84 92 H Respiratory Rate 17 12 15 Blood Pressure 158/83 H 159/81 H 169/87 H Pulse Oximetry 99 100 100 08/13/18 14:00 08/13/18 14:15 08/13/18 14:30 Temperature Pulse Rate 89 91 H 92 H Respiratory Rate 15 17 16 Blood Pressure 161/78 H 158/82 H 155/82 H Pulse Oximetry 99 100 93 L 08/13/18 14:46 08/13/18 15:00 08/13/18 15:15 Temperature Pulse Rate 88 93 H 91 H Respiratory Rate 22 15 17 Blood Pressure 150/72 H 153/74 H 163/81 H Pulse Oximetry 97 98 98 08/13/18 15:30 08/13/18 15:46 08/13/18 16:00 Temperature Pulse Rate 91 H 91 H 90 Respiratory Rate 14 21 15 Blood Pressure 167/87 H 167/77 H 173/81 H Pulse Oximetry 98 97 95 08/13/18 16:15 08/13/18 16:30 08/13/18 16:45 Temperature 37.1 C Pulse Rate 95 H 100 H 98 H Respiratory Rate 13 27 H 24 Blood Pressure 166/69 H 164/75 H 161/68 H Pulse Oximetry 95 96 95 08/13/18 17:00 08/13/18 17:15 08/13/18 17:45 Temperature Pulse Rate 96 H 93 H 94 H Respiratory Rate 14 18 20 Blood Pressure 166/77 H 158/66 H 179/72 H Pulse Oximetry 97 96 99 08/13/18 18:00 08/13/18 18:01 08/13/18 18:40 Temperature Pulse Rate 92 H 94 H 89 Respiratory Rate 14 19 16 Blood Pressure 166/77 H 162/82 H Pulse Oximetry 97 97 96 08/13/18 19:00 08/13/18 19:36 08/13/18 20:00 Temperature 37.2 C Pulse Rate 91 H 90 92 H Respiratory Rate 14 17 14 Blood Pressure 176/84 H 132/72 Pulse Oximetry 97 98 97 08/13/18 20:15 08/13/18 20:30 08/13/18 21:00 Temperature Pulse Rate 93 H 90 93 H Respiratory Rate 18 15 15 Blood Pressure 163/79 H 174/79 H 173/77 H Pulse Oximetry 98 97 97 08/13/18 22:00 08/13/18 23:00 08/14/18 00:00 Temperature 37.1 C Pulse Rate 90 90 80 Respiratory Rate 24 21 9 L Blood Pressure 155/71 H 145/74 H 171/86 H Pulse Oximetry 96 96 97 08/14/18 00:15 08/14/18 01:00 08/14/18 02:00 Temperature Pulse Rate 84 88 85 Respiratory Rate 17 15 15 Blood Pressure 162/85 H 152/74 H 154/74 H Pulse Oximetry 98 97 98 08/14/18 03:00 08/14/18 03:01 08/14/18 04:00 Temperature 37.2 C Pulse Rate 89 90 90 Respiratory Rate 19 19 24 Blood Pressure 147/78 H Pulse Oximetry 96 97 98 08/14/18 05:00 08/14/18 06:00 Temperature Pulse Rate 100 H 91 H Respiratory Rate 17 Blood Pressure Pulse Oximetry 98 Intake & Output 08/13/18 08/14/18 08/14/18 18:59 06:59 18:59 Intake Total 1400 / 1400 850 / 850 Output Total 970 / 970 500 / 500 Balance 430 / 430 350 / 350 Weight 79 kg Intake: IV 500 / 500 400 / 400 Maxipime Inj 1,000 MG In NS Inj 200 / 200 100 / 100 100 ML @ 200 mls/hr IV.SIG Q8H [facility] Rx#:[id number] Zyvox 600 mg Premix 300 ML @ 300 / 300 300 / 300 300 mls/hr IV.SIG Q12H [facility] Rx#: [id number] Oral 900 / 900 450 / 450 Output: Urine Amount (Catheter) 970 / 970 500 / 500 Indwelling Urethral Catheter 970 / 970 500 / 500 Other: Date of Last Bowel Movement 08/13/18 08/14/18 # Bowel Movements 3 Result Diagrams: 08/14/18 03:02 08/14/18 03:02 Objective Remarks: Gen: middle-aged male, sitting in bed, no acute distress. HEENT: nc. at. perrl. mmm. Neck: No JVD Chest/Pulm: equal chest rise. on room air. unlabored. CVS: normal rate, regular rhythm. sinus. GI/abdomen: soft, nontender, nondistended. no guarding. Extremities: warm bilaterally, bilateral pitting edema lower extremities, 1+. neuro: RASS 0. GCS 15. CAM- . follows commands. oriented x 3. no focal deficits. Assessment and Plan - Assessment and Plan Plan: Assessment: 57yM with Heart Failure with Preserved EF and associated Acute Diastolic Congestive Heart Failure Exacerbation, and concomitant organ failure including acute kidney injury and acute hypoxic respiratory failure. He is clinically improving. stable to transfer out of ICU. will work towards improved BP control and ambulation today. Acute Hypoxic Respiratory failure- resolved Acute community acquired pneumonia- present on admission Pulmonary edema Pneumonia prn nebs continue diuresis OOB with ambulation PT consult aggressive pulmonary toilet Acute on chronic congestive heart failure exacerbation, diastolic type, severe Congestive Heart Failure with Preserved Ejection Fraction -Preserved EF 55% on echo in October 2017 -Repeat 2D echo results noted -Troponins negative. -Blood pressure control -diuresis with Bumex -Cardiology following Severe Sepsis with end-organ dysfunction Community Acquired Pneumonia- present on admission Urinary tract infection- present on admission -e. coli and klebsiella - narrow abx to Rocephin 1gm iv q24h. Hypertensive Urgency -with DALE and CHF exacerbation - Continue home meds Cardura and carvedilol. Nephrology added Cardura -Spironolactone -Bumex - increase hydralazine to 100mg po q8h - add clonidine 0.3mg po q8h - prn labetalol iv to keep sbp < 140. -Check 24 urine for metanephrines to evaluate for pheochromocytoma, if negative consider workup for renal artery stenosis. Discussed with Dr. Isaacs: send- out lab. has been collected. will take time to result. Acute kidney injury superimposed on Chronic renal insufficiency (unknown stage) -Strict I's and O's -Diuresis -Monitor creatinine and electrolytes levels -Nephrology consulted for worsening creatinine. Workup in progress for proteinuria/elevated creatinine. Hep C antibody reactive -Per patient's patient has tested positive for hep C antibody however has not had any further workup. He has been evaluated by Dr. Marti Sarabia about 1 year ago for GI. Hep C RNA PCR pending. GI consult noted DVT GI prophylaxis -Teds SCDs -Subcu heparin -Pepcid transfer out of ICU.
--- NOTE | 2018-08-14 10:47 | P.PNNP ---
Subjective Interval history: Patient is doing better off IV drips Physical Exam Vital signs: Vital Signs 08/13/18 12:00 08/13/18 12:01 08/13/18 12:15 Temperature 98.4 F Pulse Rate 86 80 Respiratory Rate 13 11 L Blood Pressure 148/72 H 148/72 H 155/79 H Pulse Oximetry 100 100 08/13/18 12:30 08/13/18 12:45 08/13/18 13:00 Temperature Pulse Rate 83 82 82 Respiratory Rate 13 17 15 Blood Pressure 160/83 H 162/84 H 156/82 H Pulse Oximetry 100 100 100 08/13/18 13:15 08/13/18 13:30 08/13/18 13:45 Temperature Pulse Rate 85 84 92 H Respiratory Rate 17 12 15 Blood Pressure 158/83 H 159/81 H 169/87 H Pulse Oximetry 99 100 100 08/13/18 14:00 08/13/18 14:15 08/13/18 14:30 Temperature Pulse Rate 89 91 H 92 H Respiratory Rate 15 17 16 Blood Pressure 161/78 H 158/82 H 155/82 H Pulse Oximetry 99 100 93 L 08/13/18 14:46 08/13/18 15:00 08/13/18 15:15 Temperature Pulse Rate 88 93 H 91 H Respiratory Rate 22 15 17 Blood Pressure 150/72 H 153/74 H 163/81 H Pulse Oximetry 97 98 98 08/13/18 15:30 08/13/18 15:46 08/13/18 16:00 Temperature Pulse Rate 91 H 91 H 90 Respiratory Rate 14 21 15 Blood Pressure 167/87 H 167/77 H 173/81 H Pulse Oximetry 98 97 95 08/13/18 16:15 08/13/18 16:30 08/13/18 16:45 Temperature 98.8 F Pulse Rate 95 H 100 H 98 H Respiratory Rate 13 27 H 24 Blood Pressure 166/69 H 164/75 H 161/68 H Pulse Oximetry 95 96 95 08/13/18 17:00 08/13/18 17:15 08/13/18 17:45 Temperature Pulse Rate 96 H 93 H 94 H Respiratory Rate 14 18 20 Blood Pressure 166/77 H 158/66 H 179/72 H Pulse Oximetry 97 96 99 08/13/18 18:00 08/13/18 18:01 10/24/18 18:40 Temperature Pulse Rate 92 H 94 H 89 Respiratory Rate 14 19 16 Blood Pressure 166/77 H 162/82 H Pulse Oximetry 97 97 96 08/13/18 19:00 08/13/18 19:36 08/13/18 20:00 Temperature 98.9 F Pulse Rate 91 H 90 92 H Respiratory Rate 14 17 14 Blood Pressure 176/84 H 132/72 Pulse Oximetry 97 98 97 08/13/18 20:15 08/13/18 20:30 08/13/18 21:00 Temperature Pulse Rate 93 H 90 93 H Respiratory Rate 18 15 15 Blood Pressure 163/79 H 174/79 H 173/77 H Pulse Oximetry 98 97 97 08/13/18 22:00 08/13/18 23:00 08/14/18 00:00 Temperature 98.7 F Pulse Rate 90 90 80 Respiratory Rate 24 21 9 L Blood Pressure 155/71 H 145/74 H 171/86 H Pulse Oximetry 96 96 97 08/14/18 00:15 08/14/18 01:00 08/14/18 02:00 Temperature Pulse Rate 84 88 85 Respiratory Rate 17 15 15 Blood Pressure 162/85 H 152/74 H 154/74 H Pulse Oximetry 98 97 98 08/14/18 03:00 08/14/18 03:01 08/14/18 04:00 Temperature 98.9 F Pulse Rate 89 90 90 Respiratory Rate 19 19 24 Blood Pressure 147/78 H Pulse Oximetry 96 97 98 08/14/18 05:00 08/14/18 06:00 Temperature Pulse Rate 100 H 91 H Respiratory Rate 17 Blood Pressure Pulse Oximetry 98 Intake & Output 08/13/18 08/14/18 08/14/18 18:59 06:59 18:59 Intake Total 1400 / 1400 850 / 850 Output Total 970 / 970 500 / 500 Balance 430 / 430 350 / 350 Weight 79 kg Intake: IV 500 / 500 400 / 400 Maxipime Inj 1,000 MG In NS Inj 200 / 200 100 / 100 100 ML @ 200 mls/hr IV.SIG Q8H [facility] Rx#:[id number] Zyvox 600 mg Premix 300 ML @ 300 / 300 300 / 300 300 mls/hr IV.SIG Q12H [facility] Rx#: [id number] Oral 900 / 900 450 / 450 Output: Urine Amount (Catheter) 970 / 970 500 / 500 Indwelling Urethral Catheter 970 / 970 500 / 500 Other: Date of Last Bowel Movement 08/13/18 08/14/18 # Bowel Movements 3 Narrative: GENERAL: Well-nourished, well-developed patient. SKIN: Warm and dry. HEAD: Normocephalic. EYES: No scleral icterus. No injection or drainage. NECK: Supple, trachea midline. No JVD or lymphadenopathy. CARDIOVASCULAR: Regular rate and rhythm without murmurs, gallops, or rubs. RESPIRATORY: Breath sounds diminished at bases. GASTROINTESTINAL: Abdomen soft, non-tender, nondistended. EXTREMITIES: No edema NEUROLOGICAL: Awake, alert, and oriented x 3. Non-focal. - Urinary Catheter Management Indwelling Urethral Catheter Cath placed during this visit: yes Reason for continuing: Hourly intake/output Insertion date: 08/09/18 Insertion time: 04:48 Assessment and Plan - Assessment (1) Acute kidney injury superimposed on chronic kidney disease Code(s): N17.9 - Acute kidney failure, unspecified; N18.9 - Chronic kidney disease, unspecified Status: Acute (2) Diastolic CHF Code(s): I50.30 - Unspecified diastolic (congestive) heart failure Status: Acute (3) Hypertension Code(s): I10 - Essential (primary) hypertension Status: Acute (4) Respiratory failure Code(s): J96.90 - Respiratory failure, unspecified, unspecified whether with hypoxia or hypercapnia Status: Acute (5) Left ventricular diastolic dysfunction Code(s): I51.9 - Heart disease, unspecified Status: Acute - Plan Discussed with patient patient has uncontrolled hypertension which was difficult to control after surgery and went into congestive heart failure Acute kidney injury is related to uncontrolled hypertension C4 is low. Negative RUI Hepatitis C antibody positive We will check hepatitis C PCR Blood pressure better on Bumex to p.o. 2 mg daily along with Aldactone, hydralazine, doxazosin, carvedilol, clevidipine weaned off 24-hour urine for metanephrines ordered UTI gram-negative rods on cefepime Continue to monitor creatinine 1.8
[2018-08-14 11:53] LABS: Hepatitis C RNA (PCR) log IUs 6.47
[2018-08-14] MEDS: Famotidine 20 MG Tablet PO SCH ×2 (12:09→20:14)
--- NOTE | 2018-08-14 13:33 | P.PNCA ---
Subjective Interval history: Patient denies any CP, pressure, palpitations, dizziness, edema or SOB. Patient states that he is feeling better. Medications and Allergies Allergies Allergy/AdvReac Type Severity Reaction Status Date / Time furosemide Allergy Severe Rash Verified 10/30/17 07:10 amlodipine [From Norvasc] Allergy Swelling Verified 08/09/18 07:41 lisinopril Allergy Cough Verified 08/09/18 07:41 losartan Allergy Rash, Verified 08/09/18 07:41 Localized nifedipine [From Procardia] Allergy Swelling Verified 08/09/18 07:41 Home Medications Medication Instructions Recorded Confirmed Type carvedilol 25 mg PO BID 08/09/18 08/09/18 History doxazosin [Cardura] 4 mg PO DAILY 08/09/18 08/09/18 History omeprazole 40 mg PO DAILY 08/09/18 08/09/18 History spironolactone [Aldactone] 50 mg PO DAILY 08/09/18 08/09/18 History Active Medications: Active Medications Acetaminophen (Tylenol) 650 mg PO Q6H PRN PRN Reason: PAIN 1-10 AND/OR FEVER >101F Last Admin: 08/12/18 16:43 Dose: 650 mg Acetaminophen (Tylenol) 500 mg PO HS [facility] Last Admin: 08/13/18 20:19 Dose: 500 mg Al Hydroxide/Mg Hydroxide (Milk Of [place] Romo) 30 ml PO Q12H PRN PRN Reason: Mild Constipation Albuterol (Duoneb Neb (Prn)) 1 ampul NEB Q2HR NEB PRN PRN Reason: WHEEZING Alprazolam (Xanax) 0.25 mg PO Q6H PRN PRN Reason: ANXIETY Bisacodyl (Dulcolax Supp) 10 mg RECTAL DAILY PRN PRN Reason: SEVERE CONSITIPATION Bumetanide (Bumex) 2 mg PO DAILY [facility] Last Admin: 08/14/18 08:55 Dose: 2 mg Carvedilol (Coreg) 25 mg PO BID [facility] Last Admin: 08/14/18 08:55 Dose: 25 mg Chlorhexidine Gluconate (Peridex 0.12% Oral Kit) 15 ml OROPHARYNG BID@0800, 2000 [facility] Last Admin: 08/14/18 10:19 Dose: Not Given Chlorhexidine Gluconate (Chlorhexidine 2% Cloth) 3 pack TOPICAL DAILY@0400 [facility] Stop: 08/15/18 03:59 Last Admin: 08/14/18 05:47 Dose: 3 pack Chlorhexidine Gluconate (Chlorhexidine 2% Cloth) 3 pack TOPICAL DAILY@0400 PRN PRN Reason: Extra cloth needed Stop: 08/15/18 03:59 Clonidine HCl (Catapres) 0.4 mg PO Q8HR [facility] Diphenhydramine HCl (Benadryl) 50 mg PO HS [facility] Last Admin: 08/13/18 20:19 Dose: 50 mg Doxazosin Mesylate (Cardura) 4 mg PO DAILY [facility] Last Admin: 08/14/18 08:55 Dose: 4 mg Famotidine (Pepcid) 10 mg PO BID [facility] Last Admin: 08/14/18 12:09 Dose: 10 mg Heparin Sodium (Porcine) (Heparin Inj) 5,000 units SQ Q8H [facility] Last Admin: 08/14/18 05:48 Dose: 5,000 units Hydralazine HCl (Apresoline) 50 mg PO TID [facility] Last Admin: 08/14/18 12:10 Dose: 50 mg Ceftriaxone Sodium 1,000 mg/ (Sodium Chloride) 100 mls @ 200 mls/hr IV.SIG Q24H [facility] Last Admin: 08/14/18 12:10 Dose: 200 mls/hr Labetalol HCl (Trandate Inj) 40 mg IV.PUSH Q2H PRN PRN Reason: SBP>160, DBP>90 Last Admin: 08/14/18 10:06 Dose: 40 mg Lactulose (Lactulose Liq) 30 ml PO DAILY PRN PRN Reason: SEVERE CONSITIPATION Loperamide HCl (Imodium) 2 mg PO Q6H PRN PRN Reason: DIARRHEA Midazolam HCl (Versed Inj) 2 mg IV.PUSH Q1H PRN PRN Reason: SEDATION Miscellaneous Medication () 1 each OROPHARYNG 0000,0400,1200,1600 [facility] Last Admin: 08/14/18 12:10 Dose: Not Given Morphine Sulfate (Morphine Inj) 2 mg IV.PUSH Q2H PRN PRN Reason: PAIN SCALE 6 TO 10 Ondansetron HCl (Zofran Inj) 4 mg IV.PUSH Q6H PRN PRN Reason: NAUSEA OR VOMITING Last Admin: 08/14/18 12:40 Dose: 4 mg Senna/Docusate Sodium (Erika-Colace) 1 tab PO BID [facility] Last Admin: 08/14/18 08:56 Dose: Not Given Sennosides (Senokot) 17.2 mg PO Q12H PRN PRN Reason: Moderate Constipation Sodium Chloride (Ns Flush) 2 ml IV.FLUSH BID [facility] Last Admin: 08/14/18 08:56 Dose: 2 ml Sodium Chloride (Ns Flush) 2 ml IV.FLUSH PRN PRN PRN Reason: FLUSH AFTER USING IV ACCESS Spironolactone (Aldactone) 50 mg PO DAILY [facility] Last Admin: 08/14/18 08:56 Dose: 50 mg Physical Exam Vital signs: Vital Signs 08/13/18 13:30 08/13/18 13:45 08/13/18 14:00 Temperature Pulse Rate 84 92 H 89 Respiratory Rate 12 15 15 Blood Pressure 159/81 H 169/87 H 161/78 H Pulse Oximetry 100 100 99 08/13/18 14:15 08/13/18 14:30 08/13/18 14:46 Temperature Pulse Rate 91 H 92 H 88 Respiratory Rate 17 16 22 Blood Pressure 158/82 H 155/82 H 150/72 H Pulse Oximetry 100 93 L 97 08/13/18 15:00 08/13/18 15:15 08/13/18 15:30 Temperature Pulse Rate 93 H 91 H 91 H Respiratory Rate 15 17 14 Blood Pressure 153/74 H 163/81 H 167/87 H Pulse Oximetry 98 98 98 08/13/18 15:46 08/13/18 16:00 08/13/18 16:15 Temperature Pulse Rate 91 H 90 95 H Respiratory Rate 21 15 13 Blood Pressure 167/77 H 173/81 H 166/69 H Pulse Oximetry 97 95 95 08/13/18 16:30 08/13/18 16:45 08/13/18 17:00 Temperature 98.8 F Pulse Rate 100 H 98 H 96 H Respiratory Rate 27 H 24 14 Blood Pressure 164/75 H 161/68 H 166/77 H Pulse Oximetry 96 95 97 08/13/18 17:15 08/13/18 17:45 08/13/18 18:00 Temperature Pulse Rate 93 H 94 H 92 H Respiratory Rate 18 20 14 Blood Pressure 158/66 H 179/72 H Pulse Oximetry 96 99 97 08/13/18 18:01 08/13/18 18:40 08/13/18 19:00 Temperature Pulse Rate 94 H 89 91 H Respiratory Rate 19 16 14 Blood Pressure 166/77 H 162/82 H 176/84 H Pulse Oximetry 97 96 97 08/13/18 19:36 08/13/18 20:00 08/13/18 20:15 Temperature 98.9 F Pulse Rate 90 92 H 93 H Respiratory Rate 17 14 18 Blood Pressure 132/72 163/79 H Pulse Oximetry 98 97 98 08/13/18 20:30 08/13/18 21:00 08/13/18 22:00 Temperature Pulse Rate 90 93 H 90 Respiratory Rate 15 15 24 Blood Pressure 174/79 H 173/77 H 155/71 H Pulse Oximetry 97 97 96 08/13/18 23:00 08/14/18 00:00 08/14/18 00:15 Temperature 98.7 F Pulse Rate 90 80 84 Respiratory Rate 21 9 L 17 Blood Pressure 145/74 H 171/86 H 162/85 H Pulse Oximetry 96 97 98 08/14/18 01:00 08/14/18 02:00 08/14/18 03:00 Temperature Pulse Rate 88 85 89 Respiratory Rate 15 15 19 Blood Pressure 152/74 H 154/74 H Pulse Oximetry 97 98 96 08/14/18 03:01 08/14/18 04:00 08/14/18 05:00 Temperature 98.9 F Pulse Rate 90 90 100 H Respiratory Rate 19 24 17 Blood Pressure 147/78 H Pulse Oximetry 97 98 98 08/14/18 05:58 08/14/18 06:00 08/14/18 06:31 Temperature Pulse Rate 91 H 91 H 92 H Respiratory Rate 19 16 16 Blood Pressure 139/81 173/82 H 176/90 H Pulse Oximetry 95 98 95 08/14/18 07:00 08/14/18 07:24 08/14/18 07:30 Temperature Pulse Rate 100 H 92 H 87 Respiratory Rate 18 17 13 Blood Pressure 175/106 H 182/91 H Pulse Oximetry 97 98 96 08/14/18 08:00 08/14/18 09:00 08/14/18 09:52 Temperature 98.5 F Pulse Rate 95 H 87 86 Respiratory Rate 23 22 22 Blood Pressure 155/78 H 155/78 H Pulse Oximetry 97 08/14/18 10:00 08/14/18 10:04 08/14/18 11:00 Temperature Pulse Rate 90 86 86 Respiratory Rate 14 13 17 Blood Pressure 167/89 H Pulse Oximetry 99 Intake & Output 08/13/18 08/14/18 08/14/18 18:59 06:59 18:59 Intake Total 1400 / 1400 850 / 850 Output Total 970 / 970 500 / 500 Balance 430 / 430 350 / 350 Weight 79 kg Intake: IV 500 / 500 400 / 400 Maxipime Inj 1,000 MG In NS Inj 200 / 200 100 / 100 100 ML @ 200 mls/hr IV.SIG Q8H [facility] Rx#:[id number] Zyvox 600 mg Premix 300 ML @ 300 / 300 300 / 300 300 mls/hr IV.SIG Q12H [facility] Rx#: [id number] Oral 900 / 900 450 / 450 Output: Urine Amount (Catheter) 970 / 970 500 / 500 Indwelling Urethral Catheter 970 / 970 500 / 500 Other: Date of Last Bowel Movement 08/13/18 08/14/18 08/14/18 # Bowel Movements 3 - Constitutional no acute distress - Routine HEENT Exam Head: Present: normocephalic Eye: Present: PERRL ENT: Present: mucous membranes moist - Routine Neck Exam Present: full ROM - Routine Respiratory Exam Present: CTA bilaterally - Routine Cardiovascular Exam Present: S1, S2. Absent: murmur, gallop, rubs - Routine Abdominal Exam Present: normoactive bowel sounds - Routine Extremities Exam Present: full ROM, pulses intact, normal capillary refill. Absent: cyanosis, clubbing, edema - Routine Skin Exam Present: intact - Routine Neurological Exam Present: oriented X3 - Detailed Neurological Exam: Coma Scale Eye Opening: Spontaneous Verbal Response: Oriented Motor Response: [place] commands [place] Coma Scale Total: 15 - Routine Psychiatric Exam Present: normal affect - Urinary Catheter Management Indwelling Urethral Catheter Cath placed during this visit: yes Reason for continuing: Hourly intake/output Insertion date: 08/09/18 Insertion time: 04:48 Results 08/14/18 03:02 08/14/18 03:02 Cardiac Enzymes 08/13/18 08/14/18 Range/Units 06:35 03:02 AST 25 20 (15-37) U/L CBC 08/13/18 08/14/18 Range/Units 06:35 03:02 WBC 15.4 H 12.5 H (4.0-11.0) th/mm3 RBC 2.80 L 2.71 L (4.50-5.90) mil/mm3 Hgb 8.4 L 7.8 L (13.0-17.0) gm/dL Hct 24.5 L 24.2 L (39.0-51.0) % Plt Count 317 326 (150-450) th/mm3 Comprehensive Metabolic Panel 08/13/18 08/14/18 Range/Units 06:35 03:02 Sodium 144 142 (136-145) meq/L Potassium 4.0 3.9 (3.5-5.1) meq/L Chloride 109 H 109 H (98-107) meq/L Carbon Dioxide 24.5 23.9 (21.0-32.0) meq/L BUN 48 H 48 H (7-18) mg/dL Creatinine 1.89 H 1.87 H (0.60-1.30) mg/dL Calcium 8.0 L 7.8 L (8.5-10.1) mg/dL AST 25 20 (15-37) U/L ALT 18 18 (12-78) U/L Alkaline Phosphatase 90 79 (45-117) U/L Total Protein 6.0 L 5.9 L (6.4-8.2) g/dL Albumin 1.8 L 1.8 L (3.4-5.0) g/dL Intake and Output 08/13/18 08/14/18 08/14/18 22:59 06:59 14:59 Intake Total 1400 / 1400 850 / 850 Output Total 970 / 970 500 / 500 Balance 430 / 430 350 / 350 Intake: IV 500 / 500 400 / 400 Maxipime Inj 1,000 MG In NS Inj 200 / 200 100 / 100 100 ML @ 200 mls/hr IV.SIG Q8H [facility] Rx#:[id number] Zyvox 600 mg Premix 300 ML @ 300 / 300 300 / 300 300 mls/hr IV.SIG Q12H [facility] Rx#: [id number] Oral 900 / 900 450 / 450 Output: Urine Amount (Catheter) 970 / 970 500 / 500 Indwelling Urethral Catheter 970 / 970 500 / 500 Other: Date of Last Bowel Movement 08/13/18 08/14/18 08/14/18 # Bowel Movements 3 Weight 79 kg Assessment and Plan - Assessment (1) Diastolic CHF Code(s): I50.30 - Unspecified diastolic (congestive) heart failure Status: Acute (2) Hypertension Code(s): I10 - Essential (primary) hypertension Status: Acute (3) Respiratory failure Code(s): J96.90 - Respiratory failure, unspecified, unspecified whether with hypoxia or hypercapnia Status: Acute (4) Left ventricular diastolic dysfunction Code(s): I51.9 - Heart disease, unspecified Status: Acute - Plan Patient having left ventricular diastolic dysfunction secondary to hypertensive heart disease. Continue current tx for CHF. He is still hypertensive; BP medication will be adjusted to maintain systolic BP less than 140. No new cardiac issues, continue to monitor. Continue ICU care. We will continue to follow patient during hospitalization. Patient to follow up with Dr. Cook after discharge. Patient was seen and evaluated by Dr. Isaacs who participated in care, management and decision making. - Attending Attestation Patient seen and examined. I reviewed and agree with the evaluation and plan as presented. BP still elevated; continue adjusting antihypertensive program. Increase activity. Transfer to floor with tele.
[2018-08-14] MEDS: Acetaminophen 500 MG Tablet PO SCH (20:13)
[2018-08-15] MEDS: Heparin - SQ 10,000 UNITS/ML Vial SQ SCH ×3 (00:17→13:01)
[2018-08-15] MEDS: Oral Hygiene Kit OROPHARYNG SCH ×4 (02:22→15:26)
[2018-08-15 08:11] LABS: Hemoglobin 7.8 gm/dL (13.0-17.0); Mean Corpuscular HGB Conc 32.4 % (32.0-36.0); Mean Corpuscular Hemoglobin 29.1 pg (27.0-34.0); Mean Corpuscular Volume 89.7 fL (80.0-100.0); Mean Platelet Volume 9.3 fL (7.0-11.0); Platelet Count 298 th/mm3 (150-450); Red Blood Count 2.67 mil/mm3 (4.50-5.90); Red Cell Distribution Width 13.4 % (11.6-17.2)
[2018-08-15 08:32] LABS: Albumin 1.6 g/dL (3.4-5.0); Anion Gap 10 meq/L (5-15); Aspartate Aminotransferase 22 U/L (15-37); Blood Urea Nitrogen 51 mg/dL (7-18); Calcium 7.9 mg/dL (8.5-10.1); Carbon Dioxide 23.5 meq/L (21.0-32.0); Chloride 108 meq/L (98-107); Glomerular Filtration Rate 38 mL/min (>89); Glucose,Random 114 mg/dL (74-106); Magnesium 2.3 mg/dL (1.5-2.5); Sodium 141 meq/L (136-145)
[2018-08-15 08:33] LABS: Alanine Aminotransferase 20 U/L (12-78); Phosphorus 4.5 mg/dL (2.5-4.9)
[2018-08-15 08:35] LABS: Alkaline Phosphatase 69 U/L (45-117); Total Protein 5.7 g/dL (6.4-8.2)
[2018-08-15] MEDS: Chlorhexidine 0.12% Oral Kit 15 ML UDC OROPHARYNG SCH (09:10)
[2018-08-15] MEDS: Spironolactone 50 MG Tablet PO SCH (09:10)
[2018-08-15] MEDS: Famotidine 20 MG Tablet PO SCH (09:11)
[2018-08-15] MEDS: hydrALAZINE 25 MG Tablet PO SCH ×2 (09:11→13:01)
[2018-08-15] MEDS: Doxazosin 4 MG Tablet PO SCH (09:11)
[2018-08-15] MEDS: Carvedilol 12.5 MG Tablet PO SCH (09:11)
[2018-08-15] MEDS: Senna/Docusate Sodium 8.6/50 MG Tablet PO SCH (09:12)
--- NOTE | 2018-08-15 10:20 | P.PNNP ---
Subjective Interval history: Patient had baseline Physical Exam Vital signs: Vital Signs 08/14/18 11:00 08/14/18 11:03 08/14/18 11:04 Temperature Pulse Rate 86 85 85 Respiratory Rate 17 25 H 25 H Blood Pressure 197/90 H 173/83 H Pulse Oximetry 99 96 98 08/14/18 12:00 08/14/18 12:07 08/14/18 13:00 Temperature 98.5 F Pulse Rate 86 80 84 Respiratory Rate 25 H 27 H 31 H Blood Pressure 188/95 H 188/95 H 130/72 Pulse Oximetry 97 98 97 08/14/18 14:00 08/14/18 16:00 08/14/18 20:00 Temperature 98.3 F 97.5 F L Pulse Rate 84 73 74 Respiratory Rate 28 H 20 Blood Pressure 139/73 145/68 H Pulse Oximetry 97 99 08/14/18 21:00 08/14/18 21:30 08/14/18 22:00 Temperature Pulse Rate 72 73 78 Respiratory Rate Blood Pressure 133/66 Pulse Oximetry 98 08/15/18 00:00 08/15/18 01:00 08/15/18 02:00 Temperature 98.1 F Pulse Rate 73 74 73 Respiratory Rate 20 Blood Pressure 132/69 Pulse Oximetry 93 L 08/15/18 03:00 08/15/18 04:00 08/15/18 05:00 Temperature 98.1 F Pulse Rate 74 73 73 Respiratory Rate 20 Blood Pressure 132/69 Pulse Oximetry 93 L 08/15/18 06:00 08/15/18 07:00 08/15/18 08:00 Temperature 97.7 F Pulse Rate 80 68 70 Respiratory Rate 16 Blood Pressure 179/95 H Pulse Oximetry 97 Intake & Output 08/14/18 08/15/18 08/15/18 18:59 06:59 18:59 Intake Total 680 / 680 480 / 480 Output Total 475 / 475 375 / 375 Balance 205 / 205 105 / 105 Weight 80.5 kg Intake: IV 200 / 200 Maxipime Inj 1,000 MG In NS Inj 100 / 100 100 ML @ 200 mls/hr IV.SIG Q8H [facility] Rx#:[id number] Rocephin Inj 1,000 MG In NS Inj 100 / 100 100 ML @ 200 mls/hr IV.SIG Q24H [facility] Rx#:[id number] Oral 480 / 480 480 / 480 Output: Urine 475 / 475 375 / 375 Other: Date of Last Bowel Movement 08/14/18 08/14/18 08/14/18 # Bowel Movements 2 0 Narrative: GENERAL: Well-nourished, well-developed patient. SKIN: Warm and dry. HEAD: Normocephalic. EYES: No scleral icterus. No injection or drainage. NECK: Supple, trachea midline. No JVD or lymphadenopathy. CARDIOVASCULAR: Regular rate and rhythm without murmurs, gallops, or rubs. RESPIRATORY: Breath sounds diminished at bases. GASTROINTESTINAL: Abdomen soft, non-tender, nondistended. EXTREMITIES: No edema NEUROLOGICAL: Awake, alert, and oriented x 3. Non-focal. - Urinary Catheter Management Indwelling Urethral Catheter Cath placed during this visit: yes, but has since been removed by the nurse Reason for continuing: Hourly intake/output Insertion date: 08/09/18 Insertion time: 04:48 Removal date: 08/14/18 Removal time: 09:08 Assessment and Plan - Assessment (1) Acute kidney injury superimposed on chronic kidney disease Code(s): N17.9 - Acute kidney failure, unspecified; N18.9 - Chronic kidney disease, unspecified Status: Acute (2) Diastolic CHF Code(s): I50.30 - Unspecified diastolic (congestive) heart failure Status: Acute (3) Hypertension Code(s): I10 - Essential (primary) hypertension Status: Acute (4) Respiratory failure Code(s): J96.90 - Respiratory failure, unspecified, unspecified whether with hypoxia or hypercapnia Status: Acute (5) Left ventricular diastolic dysfunction Code(s): I51.9 - Heart disease, unspecified Status: Acute - Plan Discussed with patient patient has uncontrolled hypertension which was difficult to control after surgery and went into congestive heart failure Acute kidney injury is related to uncontrolled hypertension C4 is low. Negative RUI Hepatitis C antibody positive hepatitis C PCR 2.9 mil copies Blood pressure better on Bumex to p.o. 2 mg daily along with Aldactone, hydralazine, doxazosin, carvedilol, 24-hour urine for metanephrines ordered UTI gram-negative rods on cefepime Continue to monitor creatinine 1.8 Blood pressure remains labile 24 urine protein 4.4 g Hepatitis C positive will treat hepatitis C as outpatient he will need to liver biopsy/
[2018-08-15 11:54] VITALS: O2SAT 99
--- NOTE | 2018-08-15 14:41 | P.PNCA ---
Subjective Interval history: Patient sitting up in bed. Patient denies ay CP, pressure, palpitations, dizziness, edema or SOB. Medications and Allergies Allergies Allergy/AdvReac Type Severity Reaction Status Date / Time furosemide Allergy Severe Rash Verified 10/30/17 07:10 amlodipine [From Norvasc] Allergy Swelling Verified 08/09/18 07:41 lisinopril Allergy Cough Verified 08/09/18 07:41 losartan Allergy Rash, Verified 08/09/18 07:41 Localized nifedipine [From Procardia] Allergy Swelling Verified 08/09/18 07:41 Home Medications Medication Instructions Recorded Confirmed Type carvedilol 25 mg PO BID 08/09/18 08/09/18 History doxazosin [Cardura] 4 mg PO DAILY 08/09/18 08/09/18 History omeprazole 40 mg PO DAILY 08/09/18 08/09/18 History spironolactone [Aldactone] 50 mg PO DAILY 08/09/18 08/09/18 History Active Medications: Active Medications Acetaminophen (Tylenol) 650 mg PO Q6H PRN PRN Reason: PAIN 1-10 AND/OR FEVER >101F Last Admin: 08/12/18 16:43 Dose: 650 mg Acetaminophen (Tylenol) 500 mg PO HS [facility] Last Admin: 08/14/18 20:13 Dose: 500 mg Al Hydroxide/Mg Hydroxide (Milk Of Shin Romo) 30 ml PO Q12H PRN PRN Reason: Mild Constipation Albuterol (Duoneb Neb (Prn)) 1 ampul NEB Q2HR NEB PRN PRN Reason: WHEEZING Alprazolam (Xanax) 0.25 mg PO Q6H PRN PRN Reason: ANXIETY Bisacodyl (Dulcolax Supp) 10 mg RECTAL DAILY PRN PRN Reason: SEVERE CONSITIPATION Bumetanide (Bumex) 2 mg PO DAILY [facility] Last Admin: 08/15/18 09:11 Dose: 2 mg Carvedilol (Coreg) 25 mg PO BID [facility] Last Admin: 08/15/18 09:11 Dose: 25 mg Chlorhexidine Gluconate (Peridex 0.12% Oral Kit) 15 ml OROPHARYNG BID@0800, 2000 [facility] Last Admin: 08/15/18 09:10 Dose: Not Given Clonidine HCl (Catapres) 0.3 mg PO Q8HR [facility] Last Admin: 08/15/18 05:08 Dose: 0.3 mg Diphenhydramine HCl (Benadryl) 50 mg PO HS [facility] Last Admin: 08/14/18 20:13 Dose: 50 mg Doxazosin Mesylate (Cardura) 4 mg PO DAILY [facility] Last Admin: 08/15/18 09:11 Dose: 4 mg Famotidine (Pepcid) 10 mg PO BID [facility] Last Admin: 08/15/18 09:11 Dose: 10 mg Heparin Sodium (Porcine) (Heparin Inj) 5,000 units SQ Q8H [facility] Last Admin: 08/15/18 13:01 Dose: 5,000 units Hydralazine HCl (Apresoline) 50 mg PO TID [facility] Last Admin: 08/15/18 13:01 Dose: 50 mg Ceftriaxone Sodium 1,000 mg/ (Sodium Chloride) 100 mls @ 200 mls/hr IV.SIG Q24H [facility] Last Admin: 08/15/18 13:01 Dose: 100 mls/hr Labetalol HCl (Trandate Inj) 40 mg IV.PUSH Q2H PRN PRN Reason: SBP>160, DBP>90 Last Admin: 08/14/18 10:06 Dose: 40 mg Lactulose (Lactulose Liq) 30 ml PO DAILY PRN PRN Reason: SEVERE CONSITIPATION Loperamide HCl (Imodium) 2 mg PO Q6H PRN PRN Reason: DIARRHEA Midazolam HCl (Versed Inj) 2 mg IV.PUSH Q1H PRN PRN Reason: SEDATION Miscellaneous Medication () 1 each OROPHARYNG 0000,0400,1200,1600 [facility] Last Admin: 08/15/18 12:44 Dose: Not Given Morphine Sulfate (Morphine Inj) 2 mg IV.PUSH Q2H PRN PRN Reason: PAIN SCALE 6 TO 10 Ondansetron HCl (Zofran Inj) 4 mg IV.PUSH Q6H PRN PRN Reason: NAUSEA OR VOMITING Last Admin: 08/14/18 12:40 Dose: 4 mg Senna/Docusate Sodium (Erika-Colace) 1 tab PO BID [facility] Last Admin: 08/15/18 09:12 Dose: Not Given Sennosides (Senokot) 17.2 mg PO Q12H PRN PRN Reason: Moderate Constipation Sodium Chloride (Ns Flush) 2 ml IV.FLUSH BID [facility] Last Admin: 08/15/18 09:12 Dose: 2 ml Sodium Chloride (Ns Flush) 2 ml IV.FLUSH PRN PRN PRN Reason: FLUSH AFTER USING IV ACCESS Spironolactone (Aldactone) 50 mg PO DAILY [facility] Last Admin: 08/15/18 09:10 Dose: 50 mg Physical Exam Vital signs: Vital Signs 08/14/18 16:00 08/14/18 20:00 08/14/18 21:00 Temperature 98.3 F 97.5 F L Pulse Rate 73 74 72 Respiratory Rate 28 H 20 Blood Pressure 139/73 145/68 H Pulse Oximetry 97 99 08/14/18 21:30 08/14/18 22:00 08/15/18 00:00 Temperature 98.1 F Pulse Rate 73 78 73 Respiratory Rate 20 Blood Pressure 133/66 132/69 Pulse Oximetry 98 93 L 08/15/18 01:00 08/15/18 02:00 08/15/18 03:00 Temperature Pulse Rate 74 73 74 Respiratory Rate Blood Pressure Pulse Oximetry 08/15/18 04:00 08/15/18 05:00 08/15/18 06:00 Temperature 98.1 F Pulse Rate 73 73 80 Respiratory Rate 20 Blood Pressure 132/69 Pulse Oximetry 93 L 08/15/18 07:00 08/15/18 08:00 08/15/18 11:53 Temperature 97.7 F 97.8 F Pulse Rate 68 70 80 Respiratory Rate 16 16 Blood Pressure 179/95 H 126/65 Pulse Oximetry 97 99 Intake & Output 08/14/18 08/15/18 08/15/18 18:59 06:59 18:59 Intake Total 680 / 680 480 / 480 Output Total 475 / 475 375 / 375 Balance 205 / 205 105 / 105 Weight 80.5 kg Intake: IV 200 / 200 Maxipime Inj 1,000 MG In NS Inj 100 / 100 100 ML @ 200 mls/hr IV.SIG Q8H [facility] Rx#:[id number] Rocephin Inj 1,000 MG In NS Inj 100 / 100 100 ML @ 200 mls/hr IV.SIG Q24H [facility] Rx#:[id number] Oral 480 / 480 480 / 480 Output: Urine 475 / 475 375 / 375 Other: Date of Last Bowel Movement 08/14/18 08/14/18 08/14/18 # Bowel Movements 2 0 - Constitutional no acute distress - Routine HEENT Exam Head: Present: normocephalic Eye: Present: PERRL ENT: Present: mucous membranes moist - Routine Neck Exam Present: full ROM - Routine Respiratory Exam Present: CTA bilaterally - Routine Cardiovascular Exam Present: S1, S2. Absent: murmur, gallop, rubs - Routine Abdominal Exam Present: normoactive bowel sounds - Routine Extremities Exam Present: full ROM, pulses intact, normal capillary refill. Absent: cyanosis, clubbing, edema - Routine Skin Exam Present: intact - Routine Neurological Exam Present: oriented X3 - Detailed Neurological Exam: Coma Scale Eye Opening: Spontaneous Verbal Response: Oriented Motor Response: Obey commands Raymond Coma Scale Total: 15 - Routine Psychiatric Exam Present: normal affect - Urinary Catheter Management Indwelling Urethral Catheter Cath placed during this visit: yes, but has since been removed by the nurse Reason for continuing: Hourly intake/output Insertion date: 08/09/18 Insertion time: 04:48 Removal date: 08/14/18 Removal time: 09:08 Results 08/15/18 07:20 08/15/18 07:20 Cardiac Enzymes 08/14/18 08/15/18 Range/Units 03:02 07:20 AST 20 22 (15-37) U/L CBC 08/14/18 08/15/18 Range/Units 03:02 07:20 WBC 12.5 H 7.0 (4.0-11.0) th/mm3 RBC 2.71 L 2.67 L (4.50-5.90) mil/mm3 Hgb 7.8 L 7.8 L (13.0-17.0) gm/dL Hct 24.2 L 24.0 L (39.0-51.0) % Plt Count 326 298 (150-450) th/mm3 Comprehensive Metabolic Panel 08/14/18 08/15/18 Range/Units 03:02 07:20 Sodium 142 141 (136-145) meq/L Potassium 3.9 4.0 (3.5-5.1) meq/L Chloride 109 H 108 H (98-107) meq/L Carbon Dioxide 23.9 23.5 (21.0-32.0) meq/L BUN 48 H 51 H (7-18) mg/dL Creatinine 1.87 H 1.85 H (0.60-1.30) mg/dL Calcium 7.8 L 7.9 L (8.5-10.1) mg/dL AST 20 22 (15-37) U/L ALT 18 20 (12-78) U/L Alkaline Phosphatase 79 69 (45-117) U/L Total Protein 5.9 L 5.7 L (6.4-8.2) g/dL Albumin 1.8 L 1.6 L (3.4-5.0) g/dL Intake and Output 08/14/18 08/15/18 08/15/18 22:59 06:59 14:59 Intake Total 580 / 580 480 / 480 Output Total 475 / 475 375 / 375 Balance 105 / 105 105 / 105 Intake: IV 100 / 100 Maxipime Inj 1,000 MG In NS Inj 100 / 100 100 ML @ 200 mls/hr IV.SIG Q8H [facility] Rx#:[id number] Oral 480 / 480 480 / 480 Output: Urine 475 / 475 375 / 375 Other: Date of Last Bowel Movement 08/14/18 08/14/18 08/14/18 # Bowel Movements 2 0 Weight 80.5 kg Assessment and Plan - Assessment (1) Diastolic CHF Code(s): I50.30 - Unspecified diastolic (congestive) heart failure Status: Acute (2) Hypertension Code(s): I10 - Essential (primary) hypertension Status: Acute (3) Respiratory failure Code(s): J96.90 - Respiratory failure, unspecified, unspecified whether with hypoxia or hypercapnia Status: Acute (4) Left ventricular diastolic dysfunction Code(s): I51.9 - Heart disease, unspecified Status: Acute - Plan Blood pressure is stable. Continue current cardiac treatment plan for blood pressure and CHF. OK to discharge from cardiac standpoint. Patient to follow up with Dr. Cook after discharge. Patient was seen and evaluated by Dr. Isaacs who participated in care, management and decision making. - Attending Attestation Patient seen and examined. I reviewed and agree with the evaluation and plan as presented. OK to DC home. F/u with Dr. Cook after discharge.
--- NOTE | 2018-08-15 16:01 | P.PN ---
Subjective Interval history: Radio/Tv Technician Notes: 08/09: 57-year-old male with history of diastolic heart failure and preserved ejection fraction of 55% on last echo in October 2017 came to the emergency room brought in by EMS for acute respiratory distress, intubated at the scene. As per the automobile insurance claim examiner patient's girlfriend called 911 and when they arrived they noticed that the patient was tripoding gasping for air. His blood pressure initially upon their arrival was 236 systolic. Patient was given nitro sublingual spray and Lasix. They put a CPAP on him but patient did not tolerated well. At that point the decision was made to intubate him. Patient was given IV etomidate and Versed followed by intubation. Per patient's family at the bedside he had a cholecystectomy done a week ago and since then his blood pressure was poorly controlled as well as worsening of her peripheral edema. The patient has a history of allergic reaction to Lasix with a generalized body rash. 08/10: Remains sedated, orally intubated on mechanical ventilation. Not much urine output with Bumex. Creatinine increasing. 08/11: Sedated, arousable, orally intubated on mechanical ventilation. Failed CPAP trial today. Diuresed with Bumex. 08/12: Sedated, arousable, orally intubated on mechanical ventilation. Spiked fevers this morning. Sputum cultures ordered yesterday, blood cultures, UA urine cultures ordered. Starting empiric antibiotic coverage with IV cefepime and p.o. Flagyl. 08/13: Extubated yesterday. On 6 L nasal cannula. Growing staph aureus from sputum cultures. Blood pressure remains elevated on Cleviprex drip. Ordered 24 -hour urine for metanephrines in view of extremely labile blood pressures/ tachycardia to exclude pheochromocytoma. 08/14: doing well. on room air. sbp in the 160s, though off clevidipine. denies complaints. denies sob today. organ function continues to improve. Hospitalist Notes: 08/15: Patient seen in his bedroom, no nausea, vomit or diarrhea, seen by disease intervention specialist and the blood pressure now stable recommended to continue current management and follow by Doctor Cook as outpatient, no nausea, vomit or diarrhea, awaiting for nephrology clearance, placed a call to Doctor Darell Kirkland no answer yet awaiting final for discharge. Creatinine looks at baseline. Physical Exam Vital signs: Vital Signs 08/14/18 16:00 08/14/18 20:00 08/14/18 21:00 Temperature 98.3 F 97.5 F L Pulse Rate 73 74 72 Respiratory Rate 28 H 20 Blood Pressure 139/73 145/68 H Pulse Oximetry 97 99 08/14/18 21:30 08/14/18 22:00 08/15/18 00:00 Temperature 98.1 F Pulse Rate 73 78 73 Respiratory Rate 20 Blood Pressure 133/66 132/69 Pulse Oximetry 98 93 L 08/15/18 01:00 08/15/18 02:00 08/15/18 03:00 Temperature Pulse Rate 74 73 74 Respiratory Rate Blood Pressure Pulse Oximetry 08/15/18 04:00 08/15/18 05:00 08/15/18 06:00 Temperature 98.1 F Pulse Rate 73 73 80 Respiratory Rate 20 Blood Pressure 132/69 Pulse Oximetry 93 L 08/15/18 07:00 08/15/18 08:00 08/15/18 11:53 Temperature 97.7 F 97.8 F Pulse Rate 68 70 80 Respiratory Rate 16 16 Blood Pressure 179/95 H 126/65 Pulse Oximetry 97 99 Intake & Output 08/14/18 08/15/18 08/15/18 18:59 06:59 18:59 Intake Total 680 / 680 480 / 480 100 / 100 Output Total 475 / 475 375 / 375 Balance 205 / 205 105 / 105 100 / 100 Weight 80.5 kg Intake: IV 200 / 200 100 / 100 Maxipime Inj 1,000 MG In NS Inj 100 / 100 100 ML @ 200 mls/hr IV.SIG Q8H [facility] Rx#:[id number] Rocephin Inj 1,000 MG In NS Inj 100 / 100 100 / 100 100 ML @ 200 mls/hr IV.SIG Q24H [facility] Rx#:[id number] Oral 480 / 480 480 / 480 Output: Urine 475 / 475 375 / 375 Other: Date of Last Bowel Movement 08/14/18 08/14/18 08/14/18 # Bowel Movements 2 0 Narrative: GENERAL: Well-nourished, well-developed patient. SKIN: Warm and dry. HEAD: Normocephalic. EYES: No scleral icterus. No injection or drainage. NECK: Supple, trachea midline. No JVD or lymphadenopathy. CARDIOVASCULAR: Regular rate and rhythm without murmurs, gallops, or rubs. RESPIRATORY: Breath sounds diminished at bases. GASTROINTESTINAL: Abdomen soft, non-tender, nondistended. EXTREMITIES: Bilateral Pitting edema lower extremities. NEUROLOGICAL: Awake, alert, and oriented x 3. Non-focal. - Urinary Catheter Management Indwelling Urethral Catheter Cath placed during this visit: yes, but has since been removed by the nurse Reason for continuing: Hourly intake/output Insertion date: 08/09/18 Insertion time: 04:48 Removal date: 08/14/18 Removal time: 09:08 Results - Labs CBC & Chem 7: 08/15/18 07:20 08/15/18 07:20 Laboratory Results - last 24 hr 08/15/18 08/15/18 07:20 07:20 WBC 7.0 RBC 2.67 L Hgb 7.8 L Hct 24.0 L MCV 89.7 MCH 29.1 MCHC 32.4 RDW 13.4 Plt Count 298 MPV 9.3 Sodium 141 Potassium 4.0 Chloride 108 H Carbon Dioxide 23.5 Anion Gap 10 BUN 51 H Creatinine 1.85 H Estimated GFR 38 L Random Glucose 114 H Calcium 7.9 L Phosphorus 4.5 Magnesium 2.3 Total Bilirubin 0.2 AST 22 ALT 20 Alkaline Phosphatase 69 Total Protein 5.7 L Albumin 1.6 L Microbiology 08/12/18 08:49 Blood - Peripheral Aerobic Blood Culture - Preliminary No growth in 3 days 08/12/18 08:49 Blood - Peripheral Anaerobic Blood Culture - Preliminary No growth in 3 days 08/12/18 08:56 Blood - Peripheral Aerobic Blood Culture - Preliminary No growth in 3 days 08/12/18 08:56 Blood - Peripheral Anaerobic Blood Culture - Preliminary No growth in 3 days - Imaging Abdomen/Bladder Ultrasound 08/10/18 00:00 CONCLUSION: 1. Echogenic kidneys consistent with medical renal disease. 2. No sonographic evidence for obstructive uropathy. 3. Trace ascites. 4. Small left pleural effusion. Liver Ultrasound 08/12/18 00:00 CONCLUSION: 1. Slight hepatosplenomegaly. 2. Small bilateral pleural effusions and a trace of fluid in the upper peritoneal cavity around the liver. 3. Fluid collection within gallbladder fossa of uncertain etiology nonspecific and most likely postsurgical changes, however possibility of bile leak or infectious etiologies are not excluded. Chest X-Ray 08/12/18 07:14 CONCLUSION: 1. Stable ETT and NGT. 2. Persistent small left pleural effusion and associated left lower lobe airspace consolidation. 3. Improved aeration of the right lower lung zone. - Procedures Endotracheal Intubation and Extubation. Assessment and Plan - Plan 57yM with Heart Failure with Preserved EF and associated Acute Diastolic Congestive Heart Failure Exacerbation, and concomitant organ failure including acute kidney injury and acute hypoxic respiratory failure. Extubated and now on Cardiology floor. Acute Hypoxic Respiratory failure- resolved Acute community acquired pneumonia- present on admission Multifactorial Pulmonary edema/Pneumonia continue Bronchodilator, Mucolytic incentive spirometry Acute on chronic congestive heart failure exacerbation, diastolic type, severe Congestive Heart Failure with Preserved Ejection Fraction -Preserved EF 55% on echo in October 2017 -Repeat 2D echo results noted -Troponins negative. diuresis used, okay from disease intervention specialist standpoint for discharge home. Follow Doctor Fornace as outpatient. Severe Sepsis with end-organ dysfunction Community Acquired Pneumonia- present on admission Urinary tract infection- present on admission -e. coli and klebsiella - narrow abx to Rocephin 1gm iv q24h. Hypertensive Urgency -with DALE and CHF exacerbation - Continue home meds Cardura and carvedilol. Nephrology added Cardura -Spironolactone -Bumex - Hydralazine and clonidine. ncrease hydralazine to 100mg po q8h -Check 24 urine for metanephrines to evaluate for pheochromocytoma, if negative consider workup for renal artery stenosis. Discussed with Dr. Isaacs: send- out lab. has been collected. will take time to result. Acute kidney injury superimposed on Chronic renal insufficiency (unknown stage) -Strict I's and O's -Diuresis -Monitor creatinine and electrolytes levels -Nephrology consulted for worsening creatinine. Workup in progress for proteinuria/elevated creatinine. Hep C antibody reactive -Per patient's patient has tested positive for hep C antibody however has not had any further workup. He has been evaluated by Dr. Marti Sarabia about 1 year ago for GI. Hepatitis C IgG positive, Hep C RNA (PCR) [id number] IUs/ml, Hep C RNA Log 6.47. GI will follow as outpatient and treatment as outpatient. DVT GI prophylaxis -Teds SCDs -Subcu heparin -Pepcid Code Status: Full code. Discussed Condition With: Patient and his in the room. Discharge Planning: Expected later today or in am tomorrow. Clear for discharge by disease intervention specialist Placed a call to Doctor Mairta Lozoya for clearance if possible patient wants to go home.
[2018-08-15 16:13] VITALS: BP 144/81; RESP 18; TEMP 98
--- NOTE | 2018-08-15 16:30 | P.DS ---
Date of admission: 08/09/18 04:38 Primary care physician: UNKNOWN Attending physician on discharge: Eliud Colin Anticipated date of discharge: 08/15/18 Brief History from admission: 57-year-old male with history of diastolic heart failure and preserved ejection fraction of 55% on last echo in October 2017 came to the emergency room brought in by EMS for acute respiratory distress, intubated at the scene. 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 His blood pressure initially upon their arrival was 236 systolic. Patient was given nitro sublingual spray and Lasix. They put a CPAP on him but patient did not tolerated well. At that point the decision was made to intubate him. Patient was given IV etomidate and Versed followed by intubation. Per patient's family at the bedside he had a cholecystectomy done a week ago and since then his blood pressure was poorly controlled as well as worsening of her peripheral edema. The patient has a history of allergic reaction to Lasix with a generalized body rash. DS: Diagnosis - Discharge Diagnosis (1) Diastolic CHF Status: Acute (2) Hypertension Status: Acute (3) Left ventricular diastolic dysfunction Status: Acute (4) Acute kidney injury superimposed on chronic kidney disease Status: Acute DS: Summary Hospital Course: [employer] [employer] Notes: 08/09: 57-year-old male with history of diastolic heart failure and preserved ejection fraction of 55% on last echo in October 2017 came to the emergency room brought in by EMS for acute respiratory distress, intubated at the scene. 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 His blood pressure initially upon their arrival was 236 systolic. Patient was given nitro sublingual spray and Lasix. They put a CPAP on him but patient did not tolerated well. At that point the decision was made to intubate him. Patient was given IV etomidate and Versed followed by intubation. Per patient's family at the bedside he had a cholecystectomy done a week ago and since then his blood pressure was poorly controlled as well as worsening of her peripheral edema. The patient has a history of allergic reaction to Lasix with a generalized body rash. 08/10: Remains sedated, orally intubated on mechanical ventilation. Not much urine output with Bumex. Creatinine increasing. 08/11: Sedated, arousable, orally intubated on mechanical ventilation. Failed CPAP trial today. Diuresed with Bumex. 08/12: Sedated, arousable, orally intubated on mechanical ventilation. Spiked fevers this morning. Sputum cultures ordered yesterday, blood cultures, UA urine cultures ordered. Starting empiric antibiotic coverage with IV cefepime and p.o. Flagyl. 08/13: Extubated yesterday. On 6 L nasal cannula. Growing staph aureus from sputum cultures. Blood pressure remains elevated on Cleviprex drip. Ordered 24 -hour urine for metanephrines in view of extremely labile blood pressures/ tachycardia to exclude pheochromocytoma. 08/14: doing well. on room air. sbp in the 160s, though off clevidipine. denies complaints. denies sob today. organ function continues to improve. Hospitalist Notes: 08/15: Patient seen in his bedroom, no nausea, vomit or diarrhea, seen by solution specialist and the blood pressure now stable recommended to continue current management and follow by Doctor Cook as outpatient, no nausea, vomit or diarrhea, awaiting for nephrology clearance, placed a call to Doctor Darell Kirkland no answer yet awaiting final for discharge. Creatinine looks at baseline. Results - Labs CBC & Chem 7: 08/15/18 07:20 08/15/18 07:20 Laboratory Results - last 24 hr 08/15/18 08/15/18 07:20 07:20 WBC 7.0 RBC 2.67 L Hgb 7.8 L Hct 24.0 L MCV 89.7 MCH 29.1 MCHC 32.4 RDW 13.4 Plt Count 298 MPV 9.3 Sodium 141 Potassium 4.0 Chloride 108 H Carbon Dioxide 23.5 Anion Gap 10 BUN 51 H Creatinine 1.85 H Estimated GFR 38 L Random Glucose 114 H Calcium 7.9 L Phosphorus 4.5 Magnesium 2.3 Total Bilirubin 0.2 AST 22 ALT 20 Alkaline Phosphatase 69 Total Protein 5.7 L Albumin 1.6 L Microbiology 08/12/18 08:49 Blood - Peripheral Aerobic Blood Culture - Preliminary No growth in 3 days 08/12/18 08:49 Blood - Peripheral Anaerobic Blood Culture - Preliminary No growth in 3 days 08/12/18 08:56 Blood - Peripheral Aerobic Blood Culture - Preliminary No growth in 3 days 08/12/18 08:56 Blood - Peripheral Anaerobic Blood Culture - Preliminary No growth in 3 days Assessment and Plan - Plan 57yM with Heart Failure with Preserved EF and associated Acute Diastolic Congestive Heart Failure Exacerbation, and concomitant organ failure including acute kidney injury and acute hypoxic respiratory failure. Extubated and now on Cardiology floor. Acute Hypoxic Respiratory failure- resolved Acute community acquired pneumonia- present on admission Multifactorial Pulmonary edema/Pneumonia continue Bronchodilator, Mucolytic incentive spirometry Acute on chronic congestive heart failure exacerbation, diastolic type, severe Congestive Heart Failure with Preserved Ejection Fraction -Preserved EF 55% on echo in October 2017 -Repeat 2D echo results noted -Troponins negative. diuresis used, okay from solution specialist standpoint for discharge home. Follow Doctor Fornace as outpatient. Severe Sepsis with end-organ dysfunction Community Acquired Pneumonia- present on admission Urinary tract infection- present on admission -e. coli and klebsiella - narrow abx to Rocephin 1gm iv q24h. Hypertensive Urgency -with DALE and CHF exacerbation - Continue home meds Cardura and carvedilol. Nephrology added Cardura -Spironolactone -Bumex - Hydralazine and clonidine. ncrease hydralazine to 100mg po q8h -Check 24 urine for metanephrines to evaluate for pheochromocytoma, if negative consider workup for renal artery stenosis. Discussed with Dr. Isaacs: send- out lab. has been collected. will take time to result. Acute kidney injury superimposed on Chronic renal insufficiency (unknown stage) -Strict I's and O's -Diuresis -Monitor creatinine and electrolytes levels -Nephrology consulted for worsening creatinine. Workup in progress for proteinuria/elevated creatinine. Hep C antibody reactive -Per patient's patient has tested positive for hep C antibody however has not had any further workup. He has been evaluated by Dr. Marti Sarabia about 1 year ago for GI. Hepatitis C IgG positive, Hep C RNA (PCR) [id number] IUs/ml, Hep C RNA Log 6.47. GI will follow as outpatient and treatment as outpatient. DVT GI prophylaxis -Teds SCDs -Subcu heparin -Pepcid Code Status: Full code. Discussed Condition With: Patient and his in the room. Discharge Planning: Expected later today or in am tomorrow. Clear for discharge by solution specialist Clear for discharge by Nephrology specialist at this time. - Time Spent with Patient Total time spent providing and/or coordinating discharge services: Greater than 30 minutes - Quality: VTE Deep Vein Thrombosis/Pulmonary Embolism Present on Admission: No Exam Vital signs: Vital Signs 08/14/18 20:00 08/14/18 21:00 08/14/18 21:30 Temperature 97.5 F L Pulse Rate 74 72 73 Respiratory Rate 20 Blood Pressure 145/68 H 133/66 Pulse Oximetry 99 98 08/14/18 22:00 08/15/18 00:00 08/15/18 01:00 Temperature 98.1 F Pulse Rate 78 73 74 Respiratory Rate 20 Blood Pressure 132/69 Pulse Oximetry 93 L 08/15/18 02:00 08/15/18 03:00 08/15/18 04:00 Temperature 98.1 F Pulse Rate 73 74 73 Respiratory Rate 20 Blood Pressure 132/69 Pulse Oximetry 93 L 08/15/18 05:00 08/15/18 06:00 08/15/18 07:00 Temperature Pulse Rate 73 80 68 Respiratory Rate Blood Pressure Pulse Oximetry 08/15/18 08:00 08/15/18 11:53 08/15/18 16:00 Temperature 97.7 F 97.8 F 98.0 F Pulse Rate 70 80 81 Respiratory Rate 16 16 18 Blood Pressure 179/95 H 126/65 144/81 H Pulse Oximetry 97 99 99 Intake & Output 08/14/18 08/15/18 08/15/18 18:59 06:59 18:59 Intake Total 680 / 680 480 / 480 100 / 100 Output Total 475 / 475 375 / 375 Balance 205 / 205 105 / 105 100 / 100 Weight 80.5 kg Intake: IV 200 / 200 100 / 100 Maxipime Inj 1,000 MG In NS Inj 100 / 100 100 ML @ 200 mls/hr IV.SIG Q8H RENETTA Rx#:[id number] Rocephin Inj 1,000 MG In NS Inj 100 / 100 100 / 100 100 ML @ 200 mls/hr IV.SIG Q24H RENETTA Rx#:[id number] Oral 480 / 480 480 / 480 Output: Urine 475 / 475 375 / 375 Other: Date of Last Bowel Movement 08/14/18 08/14/18 08/14/18 # Bowel Movements 2 0 Narrative: GENERAL: Well-nourished, well-developed patient. SKIN: Warm and dry. HEAD: Normocephalic. EYES: No scleral icterus. No injection or drainage. NECK: Supple, trachea midline. No JVD or lymphadenopathy. CARDIOVASCULAR: Regular rate and rhythm without murmurs, gallops, or rubs. RESPIRATORY: Breath sounds diminished at bases. GASTROINTESTINAL: Abdomen soft, non-tender, nondistended. EXTREMITIES: Bilateral Pitting edema lower extremities. NEUROLOGICAL: Awake, alert, and oriented x 3. Non-focal. Results Procedures completed during hospitalization: Endotracheal Intubation and Extubation. Labs on day of discharge: Labs from last 24 hours 08/15/18 08/15/18 08/14/18 07:20 07:20 09:00 WBC 7.0 RBC 2.67 L Hgb 7.8 L Hct 24.0 L MCV 89.7 MCH 29.1 MCHC 32.4 RDW 13.4 Plt Count 298 MPV 9.3 Sodium 141 Potassium 4.0 Chloride 108 H Carbon Dioxide 23.5 Anion Gap 10 BUN 51 H Creatinine 1.85 H Estimated GFR 38 L Random Glucose 114 H Calcium 7.9 L Phosphorus 4.5 Magnesium 2.3 Total Bilirubin 0.2 AST 22 ALT 20 Alkaline Phosphatase 69 Total Protein 5.7 L Albumin 1.6 L U Metanephrines 24 Hr Pending U Normetanephrine 24h Pending U Tot Metanephrine 24h Pending Preliminary micro results at discharge 08/12/18 08:49 Aerobic Blood Culture - Preliminary Blood - Peripheral No growth in 3 days Anaerobic Blood Culture - Preliminary No growth in 3 days 08/12/18 08:56 Aerobic Blood Culture - Preliminary Blood - Peripheral No growth in 3 days Anaerobic Blood Culture - Preliminary No growth in 3 days - Impressions ITS Impressions Abdomen/Bladder Ultrasound 08/10/18 00:00 CONCLUSION: 1. Echogenic kidneys consistent with medical renal disease. 2. No sonographic evidence for obstructive uropathy. 3. Trace ascites. 4. Small left pleural effusion. Liver Ultrasound 08/12/18 00:00 CONCLUSION: 1. Slight hepatosplenomegaly. 2. Small bilateral pleural effusions and a trace of fluid in the upper peritoneal cavity around the liver. 3. Fluid collection within gallbladder fossa of uncertain etiology nonspecific and most likely postsurgical changes, however possibility of bile leak or infectious etiologies are not excluded. Chest X-Ray 08/12/18 07:14 CONCLUSION: 1. Stable ETT and NGT. 2. Persistent small left pleural effusion and associated left lower lobe airspace consolidation. 3. Improved aeration of the right lower lung zone. Discharge Plan - Discharge Disposition Patient Disposition: 01 Discharge Home - Discharge Condition Condition: Good - Discharge Order Discharge Orders: Discharge Order (Routine); Ordered 08/15/18 Ordered By: Eliud Colin - Discharge Details Anticipated Discharge Date: 08/15/18 Discharge Comment: Follow up with PCP in three days - Physicians Team Primary Care Provider: UNKNOWN, Attending Provider: Eliud Colin Other Providers: Chaitanya Isaacs MD ; Ruddy Sarabia MD ; Boyd Chadwick MD
[2018-08-15 17:53] VITALS: PULSE 86
== END 2018-08-15 17:34 | disposition home or self-care (01) ==
LOC: NEPC 04:11 → NEDA 04:38 → HIMC 06:10 → HCIS 08-14 19:24
PROVIDERS: ADMIT Internal Medicine; ATTEND Internal Medicine